=== PATIENT | female | born 1960 | race Caucasian/White ===

== ENCOUNTER 2020-02-07 15:25 | Outpatient (REF) | payer OTHER, SELFPAY | END 2020-02-07 15:26 | disposition home or self-care (01) | LOC: HO.LAB 15:25 | PROVIDERS: PCP Nurse Practitioner Family; Visit Provider Internal Medicine | DX: Z13.89 Encounter for screening for other disorder (principal) ==

== ENCOUNTER 2020-02-08 06:39 | Outpatient (REF) | payer OTHER, SELFPAY ==
[2020-02-08 07:27] LABS: COVID-19 Test Negative (Negative)
== END 2020-02-08 06:40 | disposition home or self-care (01) ==
LOC: HO.LAB 06:39
PROVIDERS: Visit Provider Internal Medicine
DX: Z20.828 Contact with and (suspected) exposure to other viral communicable diseases (principal)
CPT/HCPCS: 87635

== ENCOUNTER → 2020-04-17 13:43 | Outpatient (BNVA) | payer OTHER, SELFPAY | PROVIDERS: PCP Nurse Practitioner Family; Visit Provider Physician Assistant | DX: M79.18 Myalgia, other site (principal); E66.01 Morbid (severe) obesity due to excess calories; Z68.42 Body mass index [BMI] 45.0-49.9, adult | CPT/HCPCS: 99203 ==

== ENCOUNTER → 2020-04-22 15:06 | Outpatient (BNVA) | payer OTHER, SELFPAY | PROVIDERS: PCP Nurse Practitioner Family; Visit Provider Physician Assistant | DX: M54.6 Pain in thoracic spine (principal) | CPT/HCPCS: 99213 ==

== ENCOUNTER 2020-04-24 15:48 | Outpatient (RCR) | payer OTHER, SELFPAY ==
--- NOTE | 2020-04-24 17:15 | MHC.PT.EP ---
[employer] [employer] [place] Office [place] Office [place] [facility] [address] Bandar Smith [address] [phone] F: [phone] F: [phone] F: [phone] F: [phone] Physical Therapy Plan of Care Date of Evaluation: 04/24/20 Date of Surgery: N/A Diagnosis: thoracic spasm Assessment: pt presents to physical therapy with pain, decreased range of motion, decreased strength, impaired functional mobility, impaired postural awareness, and gait deviations. pt is a good candidate for skilled PT due to age, potential remediation of impairments, typical disease/condition progression and prognosis, comorbidities, and motivation. pt would benefit from tailored strengthening and stretching exercise program, functional training, gait training, postural re-training, neuromuscular re-education, modalities as needed for pain, equipment safety demonstration. Frequency and Duration: The patient will be seen 2x/wk for 4 wks Short Term Goals: pt will be I w/ HEP to promote self-management of condition. pt will improve B lower trap strength by 1 MMT grade to promote shoulder strength and stability w/ work-related tasks. 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 pt will report <1/10 R scapular pain w/ supine and B S/L to normalize sleeping patterns. Treatment Plan: Modalities to reduce pain, spasms and effusion. Manual therapy to restore motion and function. Therapeutic exercise to improve strength and flexibility. Neuromuscular re-education for posture and balance. Therapeutic activities to return to functional activities of daily living. Electronically signed by: Shira Bergeron PT, DPT Please sign and return to therapist. Thank you for your referral.
--- NOTE | 2020-05-08 15:41 | MHC.PT.DC ---
[facility] [place] [facility] [place] [facility] [address] [phone] F: [phone] F: [phone] F: [phone] F: [phone] Physical Therapy Discharge Report Diagnosis: thoracic spasm Date of Surgery: N/A Date of Evaluation: 04/24/20 Date of Discharge: 05/08/20 Treatments to Date: 1 Cancellations to Date: 0 No Shows to Date: 3 Discharge Status: Patient Elected to Stop Physician Discontinued Tx Discharge Summary: The patient no showed three consecutive appointments after her initial evaluation. She was called and reported upon a work-up with pain management she has a muscle tear. She was told to discontinue physical therapy at this time. If she would like to return to physical therapy a new script would need to be obtained. She is discharged from this physical therapy plan of care at this time. Electronically signed by: Shira Bergeron PT, DPT Please sign and return to therapist. Thank you for your referral.
== END 2020-05-08 15:42 | disposition other institution (70) ==
LOC: HO.PT 15:48
PROVIDERS: PCP Nurse Practitioner Family; Visit Provider Physician Assistant
DX: M62.830 Muscle spasm of back (principal)
CPT/HCPCS: 97110; 97161

== ENCOUNTER → 2020-05-01 08:03 | Outpatient (BNVA) | payer OTHER, SELFPAY | PROVIDERS: PCP Nurse Practitioner Family; Visit Provider Anesthesiology | DX: M79.18 Myalgia, other site (principal); E66.01 Morbid (severe) obesity due to excess calories | CPT/HCPCS: 99202 ==

== ENCOUNTER 2020-09-12 16:17 | Emergency (ER) | payer OTHER, SELFPAY ==
--- NOTE | ~2020-09-12 | XR_ITS ---
EXAMINATION: XR CHEST CLINICAL INFORMATION: Shortness of breath, wheezing COMPARISON: Chest radiographs 05/31/2019, 04/04/2018 TECHNIQUE: Portable upright AP view of the chest was obtained. FINDINGS: There is no hyperinflation, pneumothorax, or effusion. No lobar or segmental airspace consolidation. There is some coarsening of the bronchiolar markings infrahilar regions with questionable groundglass opacities. Tapering at the cardiac apex is consistent with areolar tissue. The hilar and mediastinal contours and bony structures are unremarkable. XR/XR chest 1V IMPRESSION: 1. Coarsening bronchiolar markings infrahilar regions with questionable groundglass opacities. 2. No lobar or segmental airspace consolidation, pneumothorax, or effusion.
[2020-09-12 16:23] VITALS: BP 125/95; PULSE 118; RESP 20; TEMP 35.8; O2SAT 94; BMI 42.3
--- NOTE | 2020-09-12 16:37 | ECG_ITS ---
Test Reason : SOB Blood Pressure : / mmHG Vent. Rate : 116 BPM Atrial Rate : 116 BPM P-R Int : 148 ms QRS Dur : 126 ms QT Int : 360 ms P-R-T Axes : 039 -30 088 degrees QTc Int : 500 ms Sinus tachycardia Left axis deviation Left bundle branch block Abnormal ECG When compared with ECG of 31-MAY-2019 16:49, No significant change was found Referred By: Rula Adams Electronically Signed By:ALEX URIAS
[2020-09-12] MEDS: Albuterol Sulfate (0.083%) 2.5 MG/3 ML VIAL.NEB 10 MG INHALE (16:49)
[2020-09-12 16:50] VITALS: PULSE 118; O2SAT 96
--- NOTE | 2020-09-12 17:01 | ED_ITS ---
HPI - SOB/Dyspnea General Chief Complaint: Dyspnea <BRENDA Leone - Last Filed: 09/12/20 18:03> Stated Complaint: SOB <BRENDA Leone - Last Filed: 09/12/20 18:03> Time Seen by Provider: 09/12/20 16:36 <BRENDA Leone Last Filed: 09/12/20 18:03> Source: patient <BRENDA Leone - Last Filed: 09/12/20 18:03> Mode of arrival: ambulatory <BRENDA Leone - Last Filed: 09/12/20 18:03> Limitations: no limitations <BRENDA Leone Last Filed: 09/12/20 18:03> History of Present Illness HPI Narrative: 60 y/o female with history of COPD, asthmatic bronchitis, obesity, former smoker (quit 20 years ago) who presents to the ER from home with SOB and wheezing for the last 4 days. She has been using all of her inhalers as directed and has been using her nebulizer machine at home. She reports relief with her nebulizer, however she had to use it 3 times today. She was SOB with little exertion today and had a hard time catching her breath. She has a cough that keeps her up at night. It is productive of white thick phlegm that is her baseline phlegm. She has seasonal allergies and pollen is known to trigger her respiratory issues. She has no chest pain. No fever, chills, N/V/D, abdominal pain, leg pain. She is fully vaccinated against COVID. <BRENDA Leone - Last Filed: 09/12/20 18:03> MD elicited complaint: shortness of breath <BRENDA Leone - Last Filed: 09/12/20 18:03> Pertinent past history: COPD and asthma <BRENDA Leone Last Filed: 09/12/20 18:03> Onset (ago): day(s) (4) <BRENDA Leone - Last Filed: 09/12/20 18:03> Context: occurred during exertion and allergen exposure <BRENDA Leone Last Filed: 09/12/20 18:03> Timing: constant <BRENDA Leone - Last Filed: 09/12/20 18:03> Severity: moderate <BRENDA Leone Last Filed: 09/12/20 18:03> Exacerbating factors: exertion <BRENDA Leone Last Filed: 09/12/20 18:03> Relieving factors: rest and bronchodilators <BRENDA Leone Last Filed: 09/12/20 18:03> Known history of: COPD and asthma <BRENDA Leone Last Filed: 09/12/20 18:03> Associated symptoms: cough, wheezing and sputum production <BRENDA Leone Last Filed: 09/12/20 18:03> Treatment prior to arrival: bronchodilator <BRENDA Leone Last Filed: 09/12/20 18:03> Related Data Home oxygen amount: none <BRENDA Leone Last Filed: 09/12/20 18:03> Home Medications: Home Medications Medication Instructions Recorded Confirmed albuterol sulfate mg INHALATION 05/01/20 albuterol sulfate 90 mcg/actuation 2 puff INHALATION Q6H PRN 05/01/20 aerosol inhaler hydrochlorothiazide 25 mg tablet 25 mg PO DAILY 05/01/20 lisinopril 40 mg tablet 40 mg PO DAILY 05/01/20 Previous Rx's Medication Instructions Recorded albuterol sulfate 1 inh INHALATION QID PRN #6.7 g 09/12/20 ipratropium-albuterol 3 ml INHALATION Q20M PRN #15 ml 09/12/20 prednisone 10 mg PO PER PKG DIR #48 ea 09/12/20 <BRENDA Leone Last Filed: 09/12/20 18:03> Allergies/Adverse Reactions: Allergies Allergy/AdvReac Type Severity Reaction Status Date / Time Sulfa (Sulfonamide Allergy Unknown cough Verified 05/01/20 08:20 Antibiotics) sulfamethoxazole Allergy Unknown COUGH Verified 05/01/20 08:20 [From BACTRIM] trimethoprim [From BACTRIM] Allergy Unknown COUGH Verified 05/01/20 08:20 seasonal Allergy Unknown unknown Uncoded 05/01/20 08:20 <BRENDA Leone Last Filed: 09/12/20 18:03> Review of Systems Review of Systems: Constitutional: No Fever, No Chills ENT/Mouth: No sore throat, No Rhinorrhea, No Swallowing Difficulty Eyes: No Eye Pain, No Swelling, No Redness Cardiovascular: No Chest Pain, + SOB, No Orthopnea, No Edema Respiratory: + Cough, + Sputum, + Wheezing, + dyspnea Gastrointestinal: No Nausea, No Vomiting, No Diarrhea, No abdominal Pain Musculoskeletal: No joint pain, No Myalgias Skin: No Skin Lesions, No rash Neuro: No Weakness, No Numbness, No Dizziness, No Headache Psych: No Anxiety/Panic, No Depression Heme/Lymph: No Bruising, No Lymphadenopathy <BRENDA Leone - Last Filed: 09/12/20 18:03> [facility] Past Medical History Attestation statement: The following information was validated with the patient. <BRENDA Leone - Last Filed: 09/12/20 18:03> Medical History: Medical History COPD (chronic obstructive pulmonary disease) Hypertension Morbid obesity Myofascial pain syndrome <BRENDA Leone - Last Filed: 09/12/20 18:03> Family History Family History: Family History (Updated 03/01/20 @ 09:30 by TACHO Mcneil) Father HTN (hypertension) Mother HTN (hypertension) <BRENDA Leone - Last Filed: 09/12/20 18:03> Social History Social History: Social History Patient Tobacco Use Status: Never used Tobacco Smoked in Last 30 Days: No Use of substances other than those prescribed or required for medical reasons: No Advance Directives: No Advance Directives Information Provided: Yes Patient : No <BREDNA Leone - Last Filed: 09/12/20 18:03> Physical Exam Vital Signs: Vital Signs: Last Vital Signs Temp 98.1 F 09/12/20 20:44 Pulse 125 H 09/12/20 20:44 Resp 18 09/12/20 20:44 BP 117/91 H 09/12/20 20:44 Pulse Ox 94 09/12/20 20:44 Body Mass Index 42.3 Appearance: Alert. Oriented X3. Mild respiratory distress with audible wheezing. Eyes: Pupils equal, round and reactive to light. ENT: Pharynx normal. Neck: Normal inspection. Neck supple. CVS: Tachycardic, regular rhythm. Pulses normal. Respiratory: Mild respiratory distress. Breath sounds with inspiratory and expiratory wheezes throughout, prolonged expiratory phase. Skin: Skin warm and dry. Normal skin color. Normal skin turgor. No rashes. Extremities: No lower extremity edema. Negative Willie's sign. Neuro: Oriented X 3. No motor deficit. No sensory deficit. <BRENDA Leone - Last Filed: 09/12/20 18:03> Vital Signs: Last Vital Signs Temp 98.1 F 09/12/20 20:44 Pulse 125 H 09/12/20 20:44 Resp 18 09/12/20 20:44 BP 117/91 H 09/12/20 20:44 Pulse Ox 94 09/12/20 20:44 Body Mass Index 42.3 <Phu Booth MD - Last Filed: 09/12/20 20:52> Course Course Course Narrative: 60 y/o female with history of COPD, asthma, obesity and seasonal allergies presenting with SOB and wheezing x4 days, likely due to allergen exposure. SpO2 94% on arrival with mild respiratory distress and tachycardia. She did her nebulizer 3x today which can account for her tachycardia. She is able to speak in 5-6 word sentences but has audible wheezing. CXR, EKG and lab workup ordered as well as IV steroids and hour long nebulizer treatment. Dispo pending results and improvement. <BRENDA Leone - Last Filed: 09/12/20 18:03> Reevaluation(s) Reevaluation #1: DDIMER added. CXR with possible ground glass opacities. COVID swab added. Signed out to Dr. Booth who will assume care. <BRENDA Leone - Last Filed: 09/12/20 18:03> 60-year-old female history of COPD/asthma came in for shortness of breath and wheezing. Labs/x-ray/patient presentation and history of more consistent with COPD exacerbation patient received Solu-Medrol/magnesium/bronchodilator in the emergency department now she feels better. Will discharge patient home with a course of prednisone and continue with bronchodilator patient was instructed to return if any worsening of her symptoms. <Phu Booth MD - Last Filed: 09/12/20 20:52> Time: 20:51 <Phu Booth MD - Last Filed: 09/12/20 20:52> MDM - SOB/Dyspnea Lab Data Attestation: I reviewed the patient's lab results. <BRENDA Leone - Last Filed: 09/12/20 18:03> Result diagrams: : 09/12/20 17:01 09/12/20 17:01 <BRENDA Leone - Last Filed: 09/12/20 18:03> Labs: Lab Results 09/12/20 09/12/20 09/12/20 Range/Units 17:01 17:01 17:01 WBC 11.5 H (4.8-10.8) X10*3/uL RBC 5.52 H (4.20-5.50) X10*6/uL Hgb 15.2 (12.0-16.0) g/dl Hct 45.0 (37-47) % MCV 81.5 (80-98) fL MCH 27.5 (27.0-33.0) pg MCHC 33.8 (31.0-35.0) g/dl RDW 12.4 (11.0-16.0) % Plt Count 437 H (160-400) X10*3/uL MPV 9.6 (9.4-12.3) fL Immature Gran % (Auto) 0.3 (0.0-0.4) % Neut % (Auto) 60.2 (45-73) % Lymph % (Auto) 20.9 (20-40) % [place] % (Auto) 10.6 (2-11) % Eos % (Auto) 7.1 H (0-4) % Baso % (Auto) 0.9 (0-2) % Lymph # (Auto) 2.4 (1.2-4.9) X10*3/uL [place] # (Auto) 1.2 (0.1-1.2) X10*3/uL Eos # (Auto) 0.8 H (0.0-0.4) X10*3/uL Baso # (Auto) 0.1 (0.0-0.2) X10*3/uL Abs Immat Gran (auto) 0.04 H (0.00-0.03) X10*3/uL Absolute Neuts (auto) 6.9 (2.0-8.3) X10*3/uL Absolute Nucleated RBC 0.000 (0.0-0.012) X10*3/uL Nucleated RBC % (auto) 0.0 (0.0-0.2) /100WBC D-Dimer Cancelled Hold Blue Top SEE NOTE Sodium 139 (135-145) mmol/L Potassium 4.6 (3.3-5.1) mmol/L Chloride 104 (96-108) mmol/L Carbon Dioxide 22 (22-29) mmol/L Anion Gap 18 (12-20) BUN 27 H (9-16) mg/dL Creatinine 1.01 (0.5-1.4) mg/dL Estim Creat Clear Calc 80.3 Estimated GFR 56 Random Glucose 101 (60-115) mg/dL Lactic Acid (0.5-2.0) mmol/L Calcium 9.6 (8.4-10.2) mg/dL Magnesium 1.8 (1.6-2.6) mg/dL Troponin I High Sens (<3.5-17.0) ng/L B-Natriuretic Peptide (<100) pg/mL Procalcitonin ng/mL Coronavirus (PCR) (Negative) Influenza Type A (PCR) (Negative) Influenza Type B (PCR) (Negative) RSV RNA Qual (PCR) (Negative) 09/12/20 09/12/20 09/12/20 Range/Units 17:01 17:01 17:01 WBC (4.8-10.8) X10*3/uL RBC (4.20-5.50) X10*6/uL Hgb (12.0-16.0) g/dl Hct (37-47) % MCV (80-98) fL MCH (27.0-33.0) pg MCHC (31.0-35.0) g/dl RDW (11.0-16.0) % Plt Count (160-400) X10*3/uL MPV (9.4-12.3) fL Immature Gran % (Auto) (0.0-0.4) % Neut % (Auto) (45-73) % Lymph % (Auto) (20-40) % [place] % (Auto) (2-11) % Eos % (Auto) (0-4) % Baso % (Auto) (0-2) % Lymph # (Auto) (1.2-4.9) X10*3/uL [place] # (Auto) (0.1-1.2) X10*3/uL Eos # (Auto) (0.0-0.4) X10*3/uL Baso # (Auto) (0.0-0.2) X10*3/uL Abs Immat Gran (auto) (0.00-0.03) X10*3/uL Absolute Neuts (auto) (2.0-8.3) X10*3/uL Absolute Nucleated RBC (0.0-0.012) X10*3/uL Nucleated RBC % (auto) (0.0-0.2) /100WBC D-Dimer Hold Blue Top Sodium (135-145) mmol/L Potassium (3.3-5.1) mmol/L Chloride (96-108) mmol/L Carbon Dioxide (22-29) mmol/L Anion Gap (12-20) BUN (9-16) mg/dL Creatinine (0.5-1.4) mg/dL Estim Creat Clear Calc Estimated GFR Random Glucose (60-115) mg/dL Lactic Acid (0.5-2.0) mmol/L Calcium (8.4-10.2) mg/dL Magnesium (1.6-2.6) mg/dL Troponin I High Sens 17.8 H* (<3.5-17.0) ng/L B-Natriuretic Peptide < 10 (<100) pg/mL Procalcitonin 0.03 ng/mL Coronavirus (PCR) (Negative) Influenza Type A (PCR) (Negative) Influenza Type B (PCR) (Negative) RSV RNA Qual (PCR) (Negative) 09/12/20 09/12/20 09/12/20 Range/Units 17:01 17:16 18:55 WBC (4.8-10.8) X10*3/uL RBC (4.20-5.50) X10*6/uL Hgb (12.0-16.0) g/dl Hct (37-47) % MCV (80-98) fL MCH (27.0-33.0) pg MCHC (31.0-35.0) g/dl RDW (11.0-16.0) % Plt Count (160-400) X10*3/uL MPV (9.4-12.3) fL Immature Gran % (Auto) (0.0-0.4) % Neut % (Auto) (45-73) % Lymph % (Auto) (20-40) % [place] % (Auto) (2-11) % Eos % (Auto) (0-4) % Baso % (Auto) (0-2) % Lymph # (Auto) (1.2-4.9) X10*3/uL [place] # (Auto) (0.1-1.2) X10*3/uL Eos # (Auto) (0.0-0.4) X10*3/uL Baso # (Auto) (0.0-0.2) X10*3/uL Abs Immat Gran (auto) (0.00-0.03) X10*3/uL Absolute Neuts (auto) (2.0-8.3) X10*3/uL Absolute Nucleated RBC (0.0-0.012) X10*3/uL Nucleated RBC % (auto) (0.0-0.2) /100WBC D-Dimer < 200 Hold Blue Top Sodium (135-145) mmol/L Potassium (3.3-5.1) mmol/L Chloride (96-108) mmol/L Carbon Dioxide (22-29) mmol/L Anion Gap (12-20) BUN (9-16) mg/dL Creatinine (0.5-1.4) mg/dL Estim Creat Clear Calc Estimated GFR Random Glucose (60-115) mg/dL Lactic Acid 1.2 (0.5-2.0) mmol/L Calcium (8.4-10.2) mg/dL Magnesium (1.6-2.6) mg/dL Troponin I High Sens (<3.5-17.0) ng/L B-Natriuretic Peptide (<100) pg/mL Procalcitonin ng/mL Coronavirus (PCR) NEGATIVE (Negative) Influenza Type A (PCR) NEGATIVE (Negative) Influenza Type B (PCR) NEGATIVE (Negative) RSV RNA Qual (PCR) NEGATIVE (Negative) 09/12/20 Range/Units 19:41 WBC (4.8-10.8) X10*3/uL RBC (4.20-5.50) X10*6/uL Hgb (12.0-16.0) g/dl Hct (37-47) % MCV (80-98) fL MCH (27.0-33.0) pg MCHC (31.0-35.0) g/dl RDW (11.0-16.0) % Plt Count (160-400) X10*3/uL MPV (9.4-12.3) fL Immature Gran % (Auto) (0.0-0.4) % Neut % (Auto) (45-73) % Lymph % (Auto) (20-40) % [place] % (Auto) (2-11) % Eos % (Auto) (0-4) % Baso % (Auto) (0-2) % Lymph # (Auto) (1.2-4.9) X10*3/uL [place] # (Auto) (0.1-1.2) X10*3/uL Eos # (Auto) (0.0-0.4) X10*3/uL Baso # (Auto) (0.0-0.2) X10*3/uL Abs Immat Gran (auto) (0.00-0.03) X10*3/uL Absolute Neuts (auto) (2.0-8.3) X10*3/uL Absolute Nucleated RBC (0.0-0.012) X10*3/uL Nucleated RBC % (auto) (0.0-0.2) /100WBC D-Dimer Hold Blue Top Sodium (135-145) mmol/L Potassium (3.3-5.1) mmol/L Chloride (96-108) mmol/L Carbon Dioxide (22-29) mmol/L Anion Gap (12-20) BUN (9-16) mg/dL Creatinine (0.5-1.4) mg/dL Estim Creat Clear Calc Estimated GFR Random Glucose (60-115) mg/dL Lactic Acid (0.5-2.0) mmol/L Calcium (8.4-10.2) mg/dL Magnesium (1.6-2.6) mg/dL Troponin I High Sens 18.3 H* (<3.5-17.0) ng/L B-Natriuretic Peptide (<100) pg/mL Procalcitonin ng/mL Coronavirus (PCR) (Negative) Influenza Type A (PCR) (Negative) Influenza Type B (PCR) (Negative) RSV RNA Qual (PCR) (Negative) <BRENDA Leone - Last Filed: 09/12/20 18:03> Lab Results 09/12/20 09/12/20 09/12/20 Range/Units 17:01 17:01 17:01 WBC 11.5 H (4.8-10.8) X10*3/uL RBC 5.52 H (4.20-5.50) X10*6/uL Hgb 15.2 (12.0-16.0) g/dl Hct 45.0 (37-47) % MCV 81.5 (80-98) fL MCH 27.5 (27.0-33.0) pg MCHC 33.8 (31.0-35.0) g/dl RDW 12.4 (11.0-16.0) % Plt Count 437 H (160-400) X10*3/uL MPV 9.6 (9.4-12.3) fL Immature Gran % (Auto) 0.3 (0.0-0.4) % Neut % (Auto) 60.2 (45-73) % Lymph % (Auto) 20.9 (20-40) % [place] % (Auto) 10.6 (2-11) % Eos % (Auto) 7.1 H (0-4) % Baso % (Auto) 0.9 (0-2) % Lymph # (Auto) 2.4 (1.2-4.9) X10*3/uL [place] # (Auto) 1.2 (0.1-1.2) X10*3/uL Eos # (Auto) 0.8 H (0.0-0.4) X10*3/uL Baso # (Auto) 0.1 (0.0-0.2) X10*3/uL Abs Immat Gran (auto) 0.04 H (0.00-0.03) X10*3/uL Absolute Neuts (auto) 6.9 (2.0-8.3) X10*3/uL Absolute Nucleated RBC 0.000 (0.0-0.012) X10*3/uL Nucleated RBC % (auto) 0.0 (0.0-0.2) /100WBC D-Dimer Cancelled Hold Blue Top SEE NOTE Sodium 139 (135-145) mmol/L Potassium 4.6 (3.3-5.1) mmol/L Chloride 104 (96-108) mmol/L Carbon Dioxide 22 (22-29) mmol/L Anion Gap 18 (12-20) BUN 27 H (9-16) mg/dL Creatinine 1.01 (0.5-1.4) mg/dL Estim Creat Clear Calc 80.3 Estimated GFR 56 Random Glucose 101 (60-115) mg/dL Lactic Acid (0.5-2.0) mmol/L Calcium 9.6 (8.4-10.2) mg/dL Magnesium 1.8 (1.6-2.6) mg/dL Troponin I High Sens (<3.5-17.0) ng/L B-Natriuretic Peptide (<100) pg/mL Procalcitonin ng/mL Coronavirus (PCR) (Negative) Influenza Type A (PCR) (Negative) Influenza Type B (PCR) (Negative) RSV RNA Qual (PCR) (Negative) 09/12/20 09/12/20 09/12/20 Range/Units 17:01 17:01 17:01 WBC (4.8-10.8) X10*3/uL RBC (4.20-5.50) X10*6/uL Hgb (12.0-16.0) g/dl Hct (37-47) % MCV (80-98) fL MCH (27.0-33.0) pg MCHC (31.0-35.0) g/dl RDW (11.0-16.0) % Plt Count (160-400) X10*3/uL MPV (9.4-12.3) fL Immature Gran % (Auto) (0.0-0.4) % Neut % (Auto) (45-73) % Lymph % (Auto) (20-40) % [place] % (Auto) (2-11) % Eos % (Auto) (0-4) % Baso % (Auto) (0-2) % Lymph # (Auto) (1.2-4.9) X10*3/uL [place] # (Auto) (0.1-1.2) X10*3/uL Eos # (Auto) (0.0-0.4) X10*3/uL Baso # (Auto) (0.0-0.2) X10*3/uL Abs Immat Gran (auto) (0.00-0.03) X10*3/uL Absolute Neuts (auto) (2.0-8.3) X10*3/uL Absolute Nucleated RBC (0.0-0.012) X10*3/uL Nucleated RBC % (auto) (0.0-0.2) /100WBC D-Dimer Hold Blue Top Sodium (135-145) mmol/L Potassium (3.3-5.1) mmol/L Chloride (96-108) mmol/L Carbon Dioxide (22-29) mmol/L Anion Gap (12-20) BUN (9-16) mg/dL Creatinine (0.5-1.4) mg/dL Estim Creat Clear Calc Estimated GFR Random Glucose (60-115) mg/dL Lactic Acid (0.5-2.0) mmol/L Calcium (8.4-10.2) mg/dL Magnesium (1.6-2.6) mg/dL Troponin I High Sens 17.8 H* (<3.5-17.0) ng/L B-Natriuretic Peptide < 10 (<100) pg/mL Procalcitonin 0.03 ng/mL Coronavirus (PCR) (Negative) Influenza Type A (PCR) (Negative) Influenza Type B (PCR) (Negative) RSV RNA Qual (PCR) (Negative) 09/12/20 09/12/20 09/12/20 Range/Units 17:01 17:16 18:55 WBC (4.8-10.8) X10*3/uL RBC (4.20-5.50) X10*6/uL Hgb (12.0-16.0) g/dl Hct (37-47) % MCV (80-98) fL MCH (27.0-33.0) pg MCHC (31.0-35.0) g/dl RDW (11.0-16.0) % Plt Count (160-400) X10*3/uL MPV (9.4-12.3) fL Immature Gran % (Auto) (0.0-0.4) % Neut % (Auto) (45-73) % Lymph % (Auto) (20-40) % [place] % (Auto) (2-11) % Eos % (Auto) (0-4) % Baso % (Auto) (0-2) % Lymph # (Auto) (1.2-4.9) X10*3/uL [place] # (Auto) (0.1-1.2) X10*3/uL Eos # (Auto) (0.0-0.4) X10*3/uL Baso # (Auto) (0.0-0.2) X10*3/uL Abs Immat Gran (auto) (0.00-0.03) X10*3/uL Absolute Neuts (auto) (2.0-8.3) X10*3/uL Absolute Nucleated RBC (0.0-0.012) X10*3/uL Nucleated RBC % (auto) (0.0-0.2) /100WBC D-Dimer < 200 Hold Blue Top Sodium (135-145) mmol/L Potassium (3.3-5.1) mmol/L Chloride (96-108) mmol/L Carbon Dioxide (22-29) mmol/L Anion Gap (12-20) BUN (9-16) mg/dL Creatinine (0.5-1.4) mg/dL Estim Creat Clear Calc Estimated GFR Random Glucose (60-115) mg/dL Lactic Acid 1.2 (0.5-2.0) mmol/L Calcium (8.4-10.2) mg/dL Magnesium (1.6-2.6) mg/dL Troponin I High Sens (<3.5-17.0) ng/L B-Natriuretic Peptide (<100) pg/mL Procalcitonin ng/mL Coronavirus (PCR) NEGATIVE (Negative) Influenza Type A (PCR) NEGATIVE (Negative) Influenza Type B (PCR) NEGATIVE (Negative) RSV RNA Qual (PCR) NEGATIVE (Negative) 09/12/20 Range/Units 19:41 WBC (4.8-10.8) X10*3/uL RBC (4.20-5.50) X10*6/uL Hgb (12.0-16.0) g/dl Hct (37-47) % MCV (80-98) fL MCH (27.0-33.0) pg MCHC (31.0-35.0) g/dl RDW (11.0-16.0) % Plt Count (160-400) X10*3/uL MPV (9.4-12.3) fL Immature Gran % (Auto) (0.0-0.4) % Neut % (Auto) (45-73) % Lymph % (Auto) (20-40) % [place] % (Auto) (2-11) % Eos % (Auto) (0-4) % Baso % (Auto) (0-2) % Lymph # (Auto) (1.2-4.9) X10*3/uL [place] # (Auto) (0.1-1.2) X10*3/uL Eos # (Auto) (0.0-0.4) X10*3/uL Baso # (Auto) (0.0-0.2) X10*3/uL Abs Immat Gran (auto) (0.00-0.03) X10*3/uL Absolute Neuts (auto) (2.0-8.3) X10*3/uL Absolute Nucleated RBC (0.0-0.012) X10*3/uL Nucleated RBC % (auto) (0.0-0.2) /100WBC D-Dimer Hold Blue Top Sodium (135-145) mmol/L Potassium (3.3-5.1) mmol/L Chloride (96-108) mmol/L Carbon Dioxide (22-29) mmol/L Anion Gap (12-20) BUN (9-16) mg/dL Creatinine (0.5-1.4) mg/dL Estim Creat Clear Calc Estimated GFR Random Glucose (60-115) mg/dL Lactic Acid (0.5-2.0) mmol/L Calcium (8.4-10.2) mg/dL Magnesium (1.6-2.6) mg/dL Troponin I High Sens 18.3 H* (<3.5-17.0) ng/L B-Natriuretic Peptide (<100) pg/mL Procalcitonin ng/mL Coronavirus (PCR) (Negative) Influenza Type A (PCR) (Negative) Influenza Type B (PCR) (Negative) RSV RNA Qual (PCR) (Negative) <Phu Booth MD - Last Filed: 09/12/20 20:52> ECG Data Attestation: I personally reviewed and interpreted this ECG as follows: <BRENDA Leone - Last Filed: 09/12/20 18:03> ECG interpretation date: 09/12/20 <BRENDA Leone - Last Filed: 09/12/20 18:03> ECG interpretation time: 18:02 <BRENDA Leone - Last Filed: 09/12/20 18:03> Prior ECG tracings: not available for review <BRENDA Leone - Last Filed: 09/12/20 18:03> Interpretation: sinus tachycardia, HR 116, normal NE intercal, LBBB, no ST segment elevations <BRENDA Leone - Last Filed: 09/12/20 18:03> Discharge Plan Discharge Clinical Impression: Acute exacerbation of chronic obstructive airways disease <BRENDA Leone - Last Filed: 09/12/20 18:03> Patient Disposition: Home, Self-Care <BRENDA Leone - Last Filed: 09/12/20 18:03> Instructions: COPD (Chronic Obstructive Pulmonary Disease) (ED) <BRENDA Leone - Last Filed: 09/12/20 18:03> Prescriptions: New prednisone 10 mg tablets,dose pack 10 mg PO PER PKG DIR Qty: 48 RF: 0 albuterol sulfate 90 mcg/actuation HFA aerosol inhaler 1 inh inhalation QID PRN (Reason: shortness of breath or wheezing) Qty: 6.7 RF: 0 ipratropium-albuterol 0.5 mg-3 mg(2.5 mg base)/3 mL solution for nebulization 3 ml inhalation Q20M PRN (Reason: shortness of breath or wheezing) Qty: 15 RF: 0 <BRENDA Leone Last Filed: 09/12/20 18:03> Referrals: Jeff Sanders MD [Physician] - 2 days <BRENDA Leone - Last Filed: 09/12/20 18:03> Stand Alone Forms: Work/School Release <BRENDA Leone - Last Filed: 09/12/20 18:03>
[2020-09-12] MEDS: Benzonatate 100 MG CAPSULE PO (17:04)
[2020-09-12] MEDS: methylPREDNISolone Sod Succ 125 MG/2 ML VIAL IVPUSH (17:04)
[2020-09-12 17:06] LABS: MANUAL DIFF FLAG NO
[2020-09-12 17:12] LABS: Basophils Absolute Auto 0.1 X10*3/uL (0.0-0.2); Basophils Percent Auto 0.9 % (0-2); Eosinophils Absolute Auto 0.8 X10*3/uL (0.0-0.4); Eosinophils Percent Auto 7.1 % (0-4); Hemoglobin 15.2 g/dl (12.0-16.0); Imm Gran Abs Auto 0.04 X10*3/uL (0.00-0.03); Imm Gran Pct Auto 0.3 % (0.0-0.4); Lymphocytes Absolute Auto 2.4 X10*3/uL (1.2-4.9); Lymphocytes Percent Auto 20.9 % (20-40); Mean Corpuscular HGB Conc 33.8 g/dl (31.0-35.0); Mean Corpuscular Hemoglobin 27.5 pg (27.0-33.0); Mean Corpuscular Volume 81.5 fL (80-98); Mean Platelet Volume 9.6 fL (9.4-12.3); Monocytes Absolute Auto 1.2 X10*3/uL (0.1-1.2); Monocytes Percent Auto 10.6 % (2-11); Neutrophils Absolute Auto 6.9 X10*3/uL (2.0-8.3); Neutrophils Percent Auto 60.2 % (45-73); Platelet Count 437 X10*3/uL (160-400); Red Blood Count 5.52 X10*6/uL (4.20-5.50); Red Cell Distribution Width 12.4 % (11.0-16.0); White Blood Count 11.5 X10*3/uL (4.8-10.8)
[2020-09-12 17:29] LABS: Lactic Acid 1.2 mmol/L (0.5-2.0)
[2020-09-12 17:37] LABS: Anion Gap 18 (12-20); Blood Urea Nitrogen 27 mg/dL (9-16); Calcium 9.6 mg/dL (8.4-10.2); Carbon Dioxide 22 mmol/L (22-29); Chloride 104 mmol/L (96-108); Creatinine Clr Calc Pharmacy 80.3; Estimated Glomerular Filt Rate 56; Glucose Random 101 mg/dL (60-115); Magnesium 1.8 mg/dL (1.6-2.6); Potassium 4.6 mmol/L (3.3-5.1); Sodium 139 mmol/L (135-145)
[2020-09-12 17:39] LABS: B Type Natriuretic Peptide < 10 pg/mL (<100)
[2020-09-12 17:54] LABS: Procalcitonin 0.03 ng/mL
[2020-09-12 18:13] LABS: Troponin-I High Sensitivity 17.8 ng/L (<3.5-17.0)
[2020-09-12 18:17] LABS: Influenza A PCR NEGATIVE (Negative); Influenza B PCR NEGATIVE (Negative); Resp Syncy Virus RNA Qual PCR NEGATIVE (Negative); SARS COV2 PCR INHOUSE NEGATIVE (Negative)
[2020-09-12 19:10] LABS: D Dimer < 200 NG/ML
[2020-09-12 20:22] LABS: Troponin-I High Sensitivity 18.3 ng/L (<3.5-17.0)
[2020-09-12 20:44] VITALS: BP 117/91; PULSE 125; RESP 18; TEMP 36.7; O2SAT 94
== END 2020-09-12 20:55 | disposition home or self-care (01) ==
PROVIDERS: Physician Assistant; Emergency Provider Emergency Medicine; PCP Nurse Practitioner Family
DX: J44.1 Chronic obstructive pulmonary disease with (acute) exacerbation (principal); R06.00 Dyspnea, unspecified; Z87.891 Personal history of nicotine dependence; Z20.822 Contact with and (suspected) exposure to COVID-19; Z79.899 Other long term (current) drug therapy
CPT/HCPCS: 0241U; 36415; 71045; 80048; 83605; 83735; 83880; 84145; 84484; 85025; 85379; 87040; 93005; 94640; 94644; 99284; J2930

== ENCOUNTER → 2020-09-27 13:57 | Outpatient (BNVA) | payer OTHER, SELFPAY | PROVIDERS: PCP Nurse Practitioner Family; Visit Provider Internal Medicine Pulmonary Disease ==

== ENCOUNTER 2020-10-10 08:29 | Outpatient (REF) | payer OTHER, SELFPAY ==
[2020-10-10 08:55] LABS: MANUAL DIFF FLAG NO
[2020-10-10 09:00] LABS: Basophils Percent Auto 0.5 % (0-2); Eosinophils Absolute Auto 0.1 X10*3/uL (0.0-0.4); Eosinophils Percent Auto 1.6 % (0-4); Hematocrit 43.6 % (37-47); Hemoglobin 14.3 g/dl (12.0-16.0); Imm Gran Abs Auto 0.02 X10*3/uL (0.00-0.03); Imm Gran Pct Auto 0.2 % (0.0-0.4); Lymphocytes Absolute Auto 2.2 X10*3/uL (1.2-4.9); Lymphocytes Percent Auto 24.8 % (20-40); Mean Corpuscular HGB Conc 32.8 g/dl (31.0-35.0); Mean Corpuscular Hemoglobin 27.2 pg (27.0-33.0); Mean Corpuscular Volume 82.9 fL (80-98); Mean Platelet Volume 9.7 fL (9.4-12.3); Monocytes Absolute Auto 0.9 X10*3/uL (0.1-1.2); Monocytes Percent Auto 10.4 % (2-11); Neutrophils Absolute Auto 5.5 X10*3/uL (2.0-8.3); Neutrophils Percent Auto 62.5 % (45-73); Platelet Count 372 X10*3/uL (160-400); Red Blood Count 5.26 X10*6/uL (4.20-5.50); Red Cell Distribution Width 12.3 % (11.0-16.0); White Blood Count 8.8 X10*3/uL (4.8-10.8)
--- NOTE | 2020-10-10 17:04 | PFT_ITS ---
FLOWS: FEV1 of 73% of predicted at 2.08 L. FVC 80% of predicted at 2.94 L. FEV1 to FVC ratio of 0.71. Positive bronchodilator response. LUNG VOLUMES: Total lung capacity 84% of predicted at 4.67 L. Residual volume 92% of predicted at 1.98 L. Slow vital capacity 80% of predicted at 2.70 L. Expiratory reserve volume 24% of predicted at 0.25 L. Diffusion capacity is mildly decreased, diffusion capacity adjust to normal after correction for alveolar ventilation. IMPRESSION: Moderate obstructive ventilatory defect with positive bronchodilator response. Decreased expiratory reserve volume suggests extrathoracic restriction likely secondary to abdominal obesity. Nitin Louis MD AP/MODL / [id number]
== END 2020-10-10 08:30 | disposition home or self-care (01) ==
LOC: HO.RESP 08:29
PROVIDERS: PCP Nurse Practitioner Family; Visit Provider Internal Medicine Pulmonary Disease
DX: J45.909 Unspecified asthma, uncomplicated (principal); R68.89 Other general symptoms and signs
CPT/HCPCS: 36415; 82785; 85025; 86003; 94060; 94727; 94729

== ENCOUNTER → 2020-10-15 14:22 | Outpatient (BNVA) | payer OTHER, SELFPAY | PROVIDERS: PCP Nurse Practitioner Family; Visit Provider Internal Medicine Pulmonary Disease ==

== ENCOUNTER → 2020-11-12 09:23 | Outpatient (BNVA) | payer OTHER, SELFPAY | PROVIDERS: PCP Nurse Practitioner Family; Visit Provider Internal Medicine Pulmonary Disease ==

== ENCOUNTER → 2021-02-21 14:02 | Outpatient (BNVA) | payer OTHER, SELFPAY | PROVIDERS: PCP Nurse Practitioner Family; Visit Provider Internal Medicine Pulmonary Disease ==

== ENCOUNTER 2021-03-10 09:54 | Outpatient (REF) | payer OTHER, SELFPAY | END 2021-03-10 09:55 | disposition home or self-care (01) | LOC: HO.MDS 09:54 | PROVIDERS: Visit Provider Internal Medicine Pulmonary Disease | DX: J45.50 Severe persistent asthma, uncomplicated (principal) | CPT/HCPCS: 96372; J2357 ==

== ENCOUNTER → 2021-03-11 13:15 | Outpatient (BNVA) | payer OTHER, SELFPAY | PROVIDERS: PCP Nurse Practitioner Family; Visit Provider Internal Medicine Pulmonary Disease ==

== ENCOUNTER 2021-04-07 08:54 | Outpatient (REF) | payer OTHER, SELFPAY | END 2021-04-07 08:55 | disposition home or self-care (01) | LOC: HO.MDS 08:54 | PROVIDERS: PCP Nurse Practitioner Family; Visit Provider Internal Medicine Pulmonary Disease | DX: J45.50 Severe persistent asthma, uncomplicated (principal) | CPT/HCPCS: 96372; J2357 ==

== ENCOUNTER 2021-05-08 09:24 | Outpatient (REF) | payer OTHER, SELFPAY | END 2021-05-08 09:25 | disposition home or self-care (01) | LOC: HO.MDS 09:24 | PROVIDERS: PCP Nurse Practitioner Family; Visit Provider Internal Medicine Pulmonary Disease | DX: J45.50 Severe persistent asthma, uncomplicated (principal) | CPT/HCPCS: 96372; J2357 ==

== ENCOUNTER → 2021-05-22 09:42 | Outpatient (BNVA) | payer OTHER, SELFPAY | PROVIDERS: PCP Nurse Practitioner Family; Visit Provider Internal Medicine Pulmonary Disease ==

== ENCOUNTER 2021-06-05 09:13 | Outpatient (REF) | payer OTHER, SELFPAY | END 2021-06-05 09:14 | disposition home or self-care (01) | LOC: HO.MDS 09:13 | PROVIDERS: PCP Nurse Practitioner Family; Visit Provider Internal Medicine Pulmonary Disease | DX: J45.50 Severe persistent asthma, uncomplicated (principal) | CPT/HCPCS: 96372; J2357 ==

== ENCOUNTER 2021-06-09 08:23 | Outpatient (REF) | payer OTHER, SELFPAY ==
--- NOTE | ~2021-06-09 | MM_ITS ---
EXAMINATION: MM SCREENING DIGITAL BREAST TOMOSYNTHESIS, BILATERAL CLINICAL INFORMATION: Screening. Asymptomatic. The lifetime risk of breast cancer based on the Tyrer-Cuzick Model is 7%. COMPARISON: Mammography: 06/18/2016 TECHNIQUE: Digital breast tomosynthesis is performed in both the craniocaudal and mediolateral oblique views along with computer-aided detection (CAD). Synthesized 2D images are generated from the tomosynthesis. FINDINGS: There are scattered areas of fibroglandular density (ACR BI-RADS breast composition Category b). There are no significant masses, abnormal calcifications, or other abnormalities. Parenchymal pattern is similar to prior exam. There are no significant changes. MM/MM tomosynthesis screening BI IMPRESSION: There are no significant changes from prior study. ASSESSMENT: BI-RADS 1: Negative RECOMMENDATION: Routine annual mammography screening. This patient's information was entered into a reminder system with a target due date for their next mammogram.
== END 2021-06-09 08:24 | disposition home or self-care (01) ==
LOC: HO.MAMMO 08:23
PROVIDERS: PCP Nurse Practitioner Family; Visit Provider Nurse Practitioner Family
DX: Z12.31 Encounter for screening mammogram for malignant neoplasm of breast (principal)
CPT/HCPCS: 77063; 77067

== ENCOUNTER → 2021-06-24 09:19 | Outpatient (REF) | payer OTHER, SELFPAY ==
--- NOTE | 2021-06-24 09:25 | CA_ITS ---
Transthoracic Echocardiogram Patient (Last, First, Middle): Yanna Holt, Gender: Female Date of : 1960 Age: 60 Procedure Date: 06/24/2021 Procedure Type: Transthoracic Echocardiogram Location: OP Height: 172.72 cm Weight: 137.44 kg BSA: 2.44 m2 Heart Rate: bpm BP: 120 / 70 mmHg Network Security Architect: MARYANNE Referring MD: Kam Jensen [facility] Fire Inspector: Andrzej Restrepo MD Symptoms: I44.7 - Left bundle-branch block, unspecified Study Quality: Technically Difficult ECG Rhythm: Sinus Conclusions: - 1. Technically limited study, patient refused Definity contrast 2. LV systolic function difficult to assess, but grade I diastolic dysfunction is noted. 3. Limited visualization of cardiac valves with normal but limited Dopplers Findings Left Ventricle The left ventricle was not well visualized. Spectral Doppler is indicative of an impaired relaxation filling pattern. E/E prime ratio is <8, consistent with normal filling pressures. Evidence suggests grade I (mild) diastolic dysfunction. On some views LV systolic function appears to be normal, however LV systolic function is difficult to assess on this study Right Ventricle Normal right ventricular cavity size and systolic function. Atria The left atrium was not well visualized. Interatrial shunt cannot be excluded. The right atrium is normal in size. Aortic Valve The aortic valve was not well visualized. There is no aortic valve stenosis. Mitral Valve The mitral valve was not well visualized. Pulmonic Valve The pulmonic valve was not well visualized. Tricuspid Valve The tricuspid valve was not well visualized. Tricuspid regurgitation envelope is inadequate for calculation of right ventricular systolic pressure. Great Vessels The aorta was not well visualized. The pulmonary artery was not well visualized. Venous The inferior vena cava was not well visualized. Pericardium/Pleural The pericardium was not well visualized. Prior Study Comparison Comparison is not possible given the technically limited study Measurements 2D Linear Measurements IVSd: 1.34 0.6-0.9/0.6-1.0 cm LVIDd: 3.95 3.9-5.3/4.2-5.9 cm LVIDd Index: 1.62 2.4-3.2/2.2-3.1 cm/m2 LVIDs: 2.64 2.0-3.6 cm LVPWd: 1.32 0.7-1.1 cm LA Diam: 4.00 2.7-3.8/3.0-4.0 cm LAIDs Index: 1.64 1.5-2.3 cm/m2 LV Mass: 236.26 67-162/88-224 g LV Mass Index: 96.83 43-95/49-115 g/m2 LVOT Diam: 2.10 3.0+(-)1.3 cm Mitral Valve MV Pk E: 0.59 MV PK A: 1.12 MV Decel Time: 162.00 E/A: 0.50 E'Lateral: 11.40 E'Medial: 6.64 E/E' Med: 8.90 E/E' Lat: 5.20 PHT: 47.00 MVA PHT: 4.68 Decel [place]: 3.65 Aortic Valve AoV Pk Chip: 1.54 AoV Mn Chip: 1.08 AoV VTI: 0.26 AoV Pk Grad: 9.00 Aov Mn Grad: 5.00 JOYA Cont.VTI: 2.65 LVOT LVOT Pk Chip: 0.95 LVOT Mn Chip: 0.74 LVOT VTI: 0.20 LVOT Pk Grad: 4.00 LVOT Mn Grad: 2.00 LVOT Diam: 2.10 LVOT Area: 3.46 Diastolic Function MV Pk E: 0.59 MV Pk A: 1.12 E/A: 0.50 E'Medial: 6.64 E/E' Med: 8.90 E' Laterial: 11.40 E/E' Lat: 5.20 Right Ventricle TAPSE (mm): 22.30 TVS' Chip: 12.20 Tricuspid Valve TR Pk Chip: 1.09 TR Pk Grad: 5.00 Great Vessels Aorta Sinus of Valsalva: 3.17 2.0-3.5 cm Ao Asc: 3.40 2.1-3.4 cm Ao Arch: 3.20 Updated in Other Vendor System with Status of Final Andrzej Restrepo MD electronically signed on 06/24/2021 9:07:12 PM with status of Final
== END ==
LOC: HO.CARD 09:19
PROVIDERS: PCP Nurse Practitioner Family; Visit Provider Nurse Practitioner Family
DX: I44.7 Left bundle-branch block, unspecified (principal)
CPT/HCPCS: 93306

== ENCOUNTER 2021-07-07 09:21 | Outpatient (REF) | payer OTHER, SELFPAY | END 2021-07-07 09:22 | disposition home or self-care (01) | LOC: HO.MDS 09:21 | PROVIDERS: PCP Nurse Practitioner Family; Visit Provider Internal Medicine Pulmonary Disease | DX: J45.50 Severe persistent asthma, uncomplicated (principal) | CPT/HCPCS: 96372; J2357 ==

== ENCOUNTER → 2021-07-24 14:55 | Outpatient (REF) | payer OTHER, SELFPAY | LOC: HO.CARD 14:55 | PROVIDERS: PCP Nurse Practitioner Family; Referring Provider Nurse Practitioner Family; Visit Provider Internal Medicine Cardiovascular Disease | DX: Z13.89 Encounter for screening for other disorder (principal) ==

== ENCOUNTER → 2021-07-29 13:44 | Outpatient (REF) | payer OTHER, SELFPAY ==
--- NOTE | 2021-07-29 13:49 | HM_ITS ---
REQUESTING PHYSICIAN: Dr. Mercedes. REASON FOR TEST: Paroxysmal atrial fibrillation. Hookup date was 07/29/2021 to 08/28/2021. INTERPRETATION: Patient was hooked up to cardiac event monitor and monitored. Patient's baseline rhythm overall is sinus rhythm with heart rate varying from 93 beats per minute to 141 beats per minute with frequent sinus tachycardia. There was 1 episode of atrial fibrillation noted on 08/09/2021 that lasted for few hours. Excess duration not noted. Total burden of atrial fibrillation not noted. However, during atrial fibrillation, patient's rapid ventricular response up to 222 beats per minute. There were no reported symptoms at that time. Isolated PVCs and couplets noted. The patient did not report any symptoms during atrial fibrillation. CONCLUSION: Holter report is remarkable. 1. Episode of atrial fibrillation with rapid ventricular response of 222 beats per minute. 2. Predominant otherwise normal sinus rhythm. 3. Total burden of atrial fibrillation not measured. 4. The patient did not report any symptoms during episode of atrial fibrillation. MD ANKIT Larkin/MODL / [id number]
== END ==
LOC: HO.CARD 13:44
PROVIDERS: Visit Provider Internal Medicine Cardiovascular Disease
DX: I48.0 Paroxysmal atrial fibrillation (principal)
CPT/HCPCS: 93270

== ENCOUNTER 2021-08-05 09:27 | Outpatient (REF) | payer OTHER, SELFPAY | END 2021-08-05 09:28 | disposition home or self-care (01) | LOC: HO.MDS 09:27 | PROVIDERS: PCP Nurse Practitioner Family; Visit Provider Internal Medicine Pulmonary Disease | DX: J45.50 Severe persistent asthma, uncomplicated (principal) | CPT/HCPCS: 96372; J2357 ==

== ENCOUNTER 2021-08-09 19:40 | Emergency (ER) | payer OTHER, SELFPAY ==
--- NOTE | ~2021-08-09 | XR_ITS ---
EXAMINATION: XR CHEST CLINICAL INFORMATION: Chest pain. COMPARISON: Chest radiograph dated from 09/12/2020. TECHNIQUE: AP view of the chest was obtained. FINDINGS: Focal airspace opacities in the retrocardiac region/left lower lobe. Otherwise, clear lungs. No significant pleural effusion. No pneumothorax. Stable appearance of the cardiomediastinal silhouette. No acute osseous abnormalities. XR/XR chest 1V IMPRESSION: Focal airspace opacities in the retrocardiac region/left lower lobe concerning for an infiltrate. Correlate clinically for pneumonia and recommend a follow-up examination after treatment to ensure resolution.
--- NOTE | 2021-08-09 19:44 | ECG_ITS ---
Test Reason : ABN HEARTRATE Blood Pressure : / mmHG Vent. Rate : 101 BPM Atrial Rate : 101 BPM P-R Int : 150 ms QRS Dur : 122 ms QT Int : 360 ms P-R-T Axes : 038 -13 077 degrees QTc Int : 466 ms Sinus tachycardia Left bundle branch block Abnormal ECG When compared with ECG of 12-SEP-2020 17:12, No significant change was found Referred By: Generic ED Physician Electronically Signed By:DEJA SOL MD
[2021-08-09 19:49] VITALS: BP 148/92; PULSE 114; RESP 20; TEMP 36.9; O2SAT 97; BMI 45.4
[2021-08-09 20:11] LABS: MANUAL DIFF FLAG NO
[2021-08-09 20:19] LABS: Basophils Absolute Auto 0.1 X10*3/uL (0.0-0.2); Basophils Percent Auto 0.6 % (0-2); Eosinophils Absolute Auto 0.5 X10*3/uL (0.0-0.4); Eosinophils Percent Auto 4.4 % (0-4); Hematocrit 45.7 % (37.0-47.0); Imm Gran Abs Auto 0.04 X10*3/uL (0.00-0.03); Imm Gran Pct Auto 0.4 % (0.0-0.4); Lymphocytes Absolute Auto 2.4 X10*3/uL (1.2-4.9); Lymphocytes Percent Auto 21.1 % (20-40); Mean Corpuscular HGB Conc 32.8 g/dl (31.0-35.0); Mean Corpuscular Volume 82.2 fL (80.0-98.0); Mean Platelet Volume 9.5 fL (9.4-12.3); Monocytes Percent Auto 8.8 % (2-11); Neutrophils Absolute Auto 7.3 x10*3/uL (2.0-8.3); Neutrophils Percent Auto 64.7 % (45-73); Platelet Count 403 X10*3/uL (160-400); Red Blood Count 5.56 X10*6/uL (4.20-5.50); Red Cell Distribution Width 12.7 % (11.0-16.0); White Blood Count 11.3 X10*3/uL (4.8-10.8)
[2021-08-09 20:35] LABS: Anion Gap 13 (12-20); Blood Urea Nitrogen 23 mg/dL (9-16); Calcium 9.5 mg/dL (8.4-10.2); Carbon Dioxide 28 mmol/L (22-29); Chloride 106 mmol/L (96-108); Creatinine Clr Calc Pharmacy 79.6; Estimated Glomerular Filt Rate 53; Glucose Random 117 mg/dL (60-115); Potassium 4.7 mmol/L (3.3-5.1); Sodium 142 mmol/L (135-145)
[2021-08-09 20:42] LABS: Troponin-I High Sensitivity 17.9 ng/L (<3.5-17.0)
[2021-08-09 21:08] VITALS: BP 120/70; PULSE 94; RESP 18; TEMP 36.4; O2SAT 96
--- NOTE | 2021-08-09 21:35 | ED.GENADULT ---
HPI - General Adult General Chief complaint: General Medical Stated complaint: Afib Time Seen by Provider: 08/09/21 20:27 History of Present Illness HPI narrative: Patient is a 61-year-old female with a history of atrial fibrillation. History of hypertension history of left bundle-branch block. History of COPD. Patient presented today with having routine follow-up for a Holter monitor. Patient pressed her Holter monitor daily to check on the monitor. Apparently she pressed the wrong button and send and alert. Was noted at the time patient was in atrial fibrillation. Patient denies have any chest pain shortness of breath dizziness nausea vomiting at the time. She had no symptoms. Told by her director of patient safety come to the ED for further evaluation. Patient from home. There has been no change in her medication. She is not on any anticoagulation. Her director of patient safety is aware there was some financial issues Related Data Home Medications Medication Instructions Recorded Confirmed albuterol sulfate mg INHALATION 05/01/20 04/14/21 albuterol sulfate 90 mcg/actuation 2 puff INHALATION Q6H PRN 05/01/20 04/14/21 aerosol inhaler fluticasone 100 mcg-salmeterol 50 1 inh INHALATION DAILY ea 07/24/21 mcg/dose blistr powdr for inhalation (Advair Diskus) Previous Rx's Medication Instructions Recorded ipratropium 0.5 mg-albuterol 3 mg 3 ml INHALATION Q20M PRN #15 ml 09/12/20 (2.5 mg base)/3 mL nebulization soln hydrochlorothiazide 25 mg tablet 25 mg PO DAILY 90 Days #90 tab 05/20/21 lisinopril 40 mg tablet 40 mg PO DAILY 90 Days #90 tab 05/20/21 omalizumab 150 mg subcutaneous 300 mg SUBCUT Q4W 28 Days #1 ea 07/08/21 solution (Xolair) Allergies Allergy/AdvReac Type Severity Reaction Status Date / Time Sulfa (Sulfonamide Allergy Unknown cough Verified 07/24/21 15:09 Antibiotics) sulfamethoxazole Allergy Unknown COUGH Verified 07/24/21 15:09 [From BACTRIM] trimethoprim [From BACTRIM] Allergy Unknown COUGH Verified 07/24/21 15:09 seasonal Allergy Unknown unknown Uncoded 07/24/21 15:09 Review of Systems Review of Systems: No fever no chills no chest pain or shortness breath no dizziness no nausea no vomiting no symptom Yes all other systems are reviewed and are negative [facility] Past Medical History Attestation statement: The following information was validated with the patient. Medical History Colon cancer screening declined COPD (chronic obstructive pulmonary disease) Hypertension Morbid obesity Myofascial pain syndrome Surgical History No pertinent past surgical history Family History Family History Father HTN (hypertension) Mother HTN (hypertension) Social History Social History Housing: House Patient Tobacco Use Status: Former Tobacco user Years Smoked: quit 24 years ago e-Cigarette/Vaping Use: Never Used Second Hand Smoke Exposure: No Advance Directives: No Advance Directives Information Provided: Yes service: No Current occupational status: employed Current occupation: [employer] Current occupational exposures/hazards: No Physical Exam ED Vital Signs: Vital Signs - 24 hr 08/09/21 19:49 08/09/21 21:08 Temperature 98.5 F 97.5 F Pulse Rate 114 H 94 Respiratory Rate 20 18 Blood Pressure 148/92 H 120/70 Pulse Oximetry 97 96 BMI result Body Mass Index 45.4 Appearance: Alert. Oriented X3. No acute distress. Eyes: Pupils equal, round and reactive to light. ENT: Pharynx normal. Neck: Normal inspection. Neck supple. No lymph nodes noted. No crepitus CVS: Normal heart rate and rhythm. Pulses normal. Normal S1 and S2 Respiratory: No respiratory distress. Breath sounds normal. No Wheezing. No rales Abdomen: Soft and nontender. No rigidity. No distention. good BS x4 Skin: Skin warm and dry. Normal skin color. Normal skin turgor. Extremities: No lower extremity edema. Neurovascular intact to all extremities. No Lacerations. No Rash Neuro: Oriented X 3. No motor deficit. No sensory deficit. Moving all extermities. No slurred speech Medical Decision Making MDM Narrative Medical decision making narrative: Patient's EKG showed a left bundle-branch pattern sinus heart rate was 90. EKG was unchanged from previous patient is asymptomatic. Will discuss with Cardiology about follow-up on an outpatient basis. Patient's Luther Vasc 2 score is 2. She is 61 years old he does have a history of hypertension. Currently is in stable condition. Patient's case discussed with Dr. Gage. Will discharge patient home. Patient offered anticoagulation did not want at this time. In stable condition. Lab Data Result diagrams: 08/09/21 20:07 08/09/21 20:07 Labs: Lab Results 08/09/21 08/09/21 08/09/21 Range/Units 20:07 20:07 20:07 WBC 11.3 H (4.8-10.8) X10*3/uL RBC 5.56 H (4.20-5.50) X10*6/uL Hgb 15.0 (12.0-16.0) g/dl Hct 45.7 (37.0-47.0) % MCV 82.2 (80.0-98.0) fL MCH 27.0 (27.0-33.0) pg MCHC 32.8 (31.0-35.0) g/dl RDW 12.7 (11.0-16.0) % Plt Count 403 H (160-400) X10*3/uL MPV 9.5 (9.4-12.3) fL Immature Gran % (Auto) 0.4 (0.0-0.4) % Neut % (Auto) 64.7 (45-73) % Lymph % (Auto) 21.1 (20-40) % [place] % (Auto) 8.8 (2-11) % Eos % (Auto) 4.4 H (0-4) % Baso % (Auto) 0.6 (0-2) % Lymph # (Auto) 2.4 (1.2-4.9) X10*3/uL [place] # (Auto) 1.0 (0.1-1.2) X10*3/uL Eos # (Auto) 0.5 H (0.0-0.4) X10*3/uL Baso # (Auto) 0.1 (0.0-0.2) X10*3/uL Abs Immat Gran (auto) 0.04 H (0.00-0.03) X10*3/uL Absolute Neuts (auto) 7.3 (2.0-8.3) x10*3/uL Absolute Nucleated RBC 0.000 (0.0-0.012) X10*3/uL Nucleated RBC % (auto) 0.0 (0.0-0.2) /100WBC Sodium 142 (135-145) mmol/L Potassium 4.7 (3.3-5.1) mmol/L Chloride 106 (96-108) mmol/L Carbon Dioxide 28 (22-29) mmol/L Anion Gap 13 (12-20) BUN 23 H (9-16) mg/dL Creatinine 1.05 (0.5-1.4) mg/dL Estim Creat Clear Calc 79.6 Estimated GFR 53 Random Glucose 117 H (60-115) mg/dL Calcium 9.5 (8.4-10.2) mg/dL Troponin I High Sens 17.9 H (<3.5-17.0) ng/L Discharge Plan Discharge Clinical Impression: PAF (paroxysmal atrial fibrillation) Patient Disposition: Home, Self-Care Instructions: A-fib (Atrial Fibrillation) (ED) Prescriptions: No Action lisinopril 40 mg tablet 40 mg PO DAILY 90 Days Qty: 90 0RF hydrochlorothiazide 25 mg tablet 25 mg PO DAILY 90 Days Qty: 90 0RF Xolair 150 mg recon soln 300 mg subcut Q4W 28 Days Qty: 1 12RF Rx Instructions: requires multiple injection sites; do not exceed 150 mg per injection site ipratropium-albuterol 0.5 mg-3 mg(2.5 mg base)/3 mL solution for nebulization 3 ml inhalation Q20M PRN (Reason: shortness of breath or wheezing) Qty: 15 0RF Rx Instructions: for 3 doses albuterol sulfate 2.5 mg /3 mL (0.083 %) solution for nebulization inhalation 0RF albuterol sulfate 90 mcg/actuation HFA aerosol inhaler 2 puff inhalation Q6H PRN (Reason: dyspnea) 0RF fluticasone propion-salmeterol [Advair Diskus] 100-50 mcg/dose blister with device 1 inh inhalation DAILY 0RF Referrals: Andrea Mercedes MD [Physician] -
--- NOTE | 2021-08-09 21:58 | ED.GENADULT ---
HPI - General Adult General Chief complaint: General Medical Stated complaint: Afib Time Seen by Provider: 08/09/21 20:27 Related Data Home Medications Medication Instructions Recorded Confirmed albuterol sulfate mg INHALATION 05/01/20 04/14/21 albuterol sulfate 90 mcg/actuation 2 puff INHALATION Q6H PRN 05/01/20 04/14/21 aerosol inhaler fluticasone 100 mcg-salmeterol 50 1 inh INHALATION DAILY ea 07/24/21 mcg/dose blistr powdr for inhalation (Advair Diskus) Previous Rx's Medication Instructions Recorded ipratropium 0.5 mg-albuterol 3 mg 3 ml INHALATION Q20M PRN #15 ml 09/12/20 (2.5 mg base)/3 mL nebulization soln hydrochlorothiazide 25 mg tablet 25 mg PO DAILY 90 Days #90 tab 05/20/21 lisinopril 40 mg tablet 40 mg PO DAILY 90 Days #90 tab 05/20/21 omalizumab 150 mg subcutaneous 300 mg SUBCUT Q4W 28 Days #1 ea 07/08/21 solution (Xolair) apixaban 5 mg tablet (Eliquis) 5 mg PO BID 30 Days #60 tab 08/09/21 Allergies Allergy/AdvReac Type Severity Reaction Status Date / Time Sulfa (Sulfonamide Allergy Unknown cough Verified 07/24/21 15:09 Antibiotics) sulfamethoxazole Allergy Unknown COUGH Verified 07/24/21 15:09 [From BACTRIM] trimethoprim [From BACTRIM] Allergy Unknown COUGH Verified 07/24/21 15:09 seasonal Allergy Unknown unknown Uncoded 07/24/21 15:09 [facility] Past Medical History Medical History Colon cancer screening declined COPD (chronic obstructive pulmonary disease) Hypertension Morbid obesity Myofascial pain syndrome Surgical History No pertinent past surgical history Family History Family History Father HTN (hypertension) Mother HTN (hypertension) Social History Social History Housing: House Patient Tobacco Use Status: Former Tobacco user Years Smoked: quit 24 years ago e-Cigarette/Vaping Use: Never Used Second Hand Smoke Exposure: No Advance Directives: No Advance Directives Information Provided: Yes service: No Current occupational status: employed Current occupation: [employer] Current occupational exposures/hazards: No Physical Exam ED Vital Signs: Vital Signs - 24 hr 08/09/21 19:49 08/09/21 21:08 Temperature 98.5 F 97.5 F Pulse Rate 114 H 94 Respiratory Rate 20 18 Blood Pressure 148/92 H 120/70 Pulse Oximetry 97 96 BMI result Body Mass Index 45.4 Medical Decision Making MDM Narrative Medical decision making narrative: Patient's case discussed with cardiology okay with discharge. After long discussion with patient okay with anticoagulation. We will go ahead and start patient on Eliquis 5 mg twice a day. She is in stable condition. Lab Data Result diagrams: 08/09/21 20:07 08/09/21 20:07 Labs: Lab Results 08/09/21 08/09/21 08/09/21 Range/Units 20:07 20:07 20:07 WBC 11.3 H (4.8-10.8) X10*3/uL RBC 5.56 H (4.20-5.50) X10*6/uL Hgb 15.0 (12.0-16.0) g/dl Hct 45.7 (37.0-47.0) % MCV 82.2 (80.0-98.0) fL MCH 27.0 (27.0-33.0) pg MCHC 32.8 (31.0-35.0) g/dl RDW 12.7 (11.0-16.0) % Plt Count 403 H (160-400) X10*3/uL MPV 9.5 (9.4-12.3) fL Immature Gran % (Auto) 0.4 (0.0-0.4) % Neut % (Auto) 64.7 (45-73) % Lymph % (Auto) 21.1 (20-40) % [place] % (Auto) 8.8 (2-11) % Eos % (Auto) 4.4 H (0-4) % Baso % (Auto) 0.6 (0-2) % Lymph # (Auto) 2.4 (1.2-4.9) X10*3/uL [place] # (Auto) 1.0 (0.1-1.2) X10*3/uL Eos # (Auto) 0.5 H (0.0-0.4) X10*3/uL Baso # (Auto) 0.1 (0.0-0.2) X10*3/uL Abs Immat Gran (auto) 0.04 H (0.00-0.03) X10*3/uL Absolute Neuts (auto) 7.3 (2.0-8.3) x10*3/uL Absolute Nucleated RBC 0.000 (0.0-0.012) X10*3/uL Nucleated RBC % (auto) 0.0 (0.0-0.2) /100WBC Sodium 142 (135-145) mmol/L Potassium 4.7 (3.3-5.1) mmol/L Chloride 106 (96-108) mmol/L Carbon Dioxide 28 (22-29) mmol/L Anion Gap 13 (12-20) BUN 23 H (9-16) mg/dL Creatinine 1.05 (0.5-1.4) mg/dL Estim Creat Clear Calc 79.6 Estimated GFR 53 Random Glucose 117 H (60-115) mg/dL Calcium 9.5 (8.4-10.2) mg/dL Troponin I High Sens 17.9 H (<3.5-17.0) ng/L Discharge Plan Discharge Clinical Impression: PAF (paroxysmal atrial fibrillation) Patient Disposition: Home, Self-Care Instructions: A-fib (Atrial Fibrillation) (ED) Prescriptions: New Eliquis 5 mg tablet 5 mg PO BID 30 Days Qty: 60 0RF No Action lisinopril 40 mg tablet 40 mg PO DAILY 90 Days Qty: 90 0RF hydrochlorothiazide 25 mg tablet 25 mg PO DAILY 90 Days Qty: 90 0RF Xolair 150 mg recon soln 300 mg subcut Q4W 28 Days Qty: 1 12RF Rx Instructions: requires multiple injection sites; do not exceed 150 mg per injection site ipratropium-albuterol 0.5 mg-3 mg(2.5 mg base)/3 mL solution for nebulization 3 ml inhalation Q20M PRN (Reason: shortness of breath or wheezing) Qty: 15 0RF Rx Instructions: for 3 doses albuterol sulfate 2.5 mg /3 mL (0.083 %) solution for nebulization inhalation 0RF albuterol sulfate 90 mcg/actuation HFA aerosol inhaler 2 puff inhalation Q6H PRN (Reason: dyspnea) 0RF fluticasone propion-salmeterol [Advair Diskus] 100-50 mcg/dose blister with device 1 inh inhalation DAILY 0RF Referrals: Andrea Mercedes MD [Physician] -
== END 2021-08-09 22:19 | disposition home or self-care (01) ==
PROVIDERS: Emergency Provider Emergency Medicine Emergency Medical Services
DX: I48.0 Paroxysmal atrial fibrillation (principal); I10 Essential (primary) hypertension; Z79.899 Other long term (current) drug therapy; Z87.891 Personal history of nicotine dependence
CPT/HCPCS: 36415; 71045; 80048; 84484; 85025; 93005; 99284

== ENCOUNTER 2021-09-02 09:19 | Outpatient (REF) | payer OTHER, SELFPAY | END 2021-09-02 09:20 | disposition home or self-care (01) | LOC: HO.MDS 09:19 | PROVIDERS: PCP Nurse Practitioner Family; Visit Provider Internal Medicine Pulmonary Disease | DX: J45.50 Severe persistent asthma, uncomplicated (principal); M79.18 Myalgia, other site | CPT/HCPCS: 96372; J2357 ==

== ENCOUNTER → 2021-09-18 08:51 | Outpatient (BNVA) | payer OTHER, SELFPAY | PROVIDERS: PCP Nurse Practitioner Family; Visit Provider Internal Medicine Pulmonary Disease | DX: Z13.89 Encounter for screening for other disorder (principal) ==

== ENCOUNTER → 2021-09-25 11:11 | Outpatient (BNVA) | payer OTHER, SELFPAY | PROVIDERS: PCP Nurse Practitioner Family; Referring Provider Nurse Practitioner Family; Visit Provider Internal Medicine Cardiovascular Disease | DX: I48.0 Paroxysmal atrial fibrillation (principal); I44.7 Left bundle-branch block, unspecified; I10 Essential (primary) hypertension | CPT/HCPCS: 93005 ==

== ENCOUNTER 2021-10-03 08:29 | Outpatient (REF) | payer OTHER, SELFPAY | END 2021-10-03 08:30 | disposition home or self-care (01) | LOC: HO.MDS 08:29 | PROVIDERS: PCP Nurse Practitioner Family; Visit Provider Internal Medicine Pulmonary Disease | DX: J45.50 Severe persistent asthma, uncomplicated (principal) | CPT/HCPCS: 96372 ==

== ENCOUNTER 2021-10-30 08:34 | Outpatient (REF) | payer OTHER, SELFPAY | END 2021-10-30 08:35 | disposition home or self-care (01) | LOC: HO.MDS 08:34 | PROVIDERS: PCP Nurse Practitioner Family; Visit Provider Internal Medicine Pulmonary Disease | DX: J45.50 Severe persistent asthma, uncomplicated (principal) | CPT/HCPCS: 96372; J2357 ==

== ENCOUNTER 2021-11-27 09:10 | Outpatient (REF) | payer OTHER, SELFPAY | END 2021-11-27 09:11 | disposition home or self-care (01) | LOC: HO.MDS 09:10 | PROVIDERS: Visit Provider Internal Medicine Pulmonary Disease | DX: J45.50 Severe persistent asthma, uncomplicated (principal) | CPT/HCPCS: 96372; J2357 ==

== ENCOUNTER 2022-01-09 09:16 | Outpatient (REF) | payer OTHER, SELFPAY | END 2022-01-09 09:17 | disposition home or self-care (01) | LOC: HO.MDS 09:16 | PROVIDERS: Visit Provider Internal Medicine Pulmonary Disease | DX: J45.50 Severe persistent asthma, uncomplicated (principal) | CPT/HCPCS: 96372; J2357 ==

== ENCOUNTER 2022-02-09 08:51 | Outpatient (REF) | payer OTHER, SELFPAY | END 2022-02-09 08:52 | disposition home or self-care (01) | LOC: HO.MDS 08:51 | PROVIDERS: Visit Provider Internal Medicine Pulmonary Disease | DX: J45.50 Severe persistent asthma, uncomplicated (principal) | CPT/HCPCS: 96372; J2357 ==

== ENCOUNTER 2022-03-09 09:37 | Outpatient (REF) | payer OTHER, SELFPAY | END 2022-03-09 09:38 | disposition home or self-care (01) | LOC: HO.MDS 09:37 | PROVIDERS: Visit Provider Internal Medicine Pulmonary Disease | DX: J45.50 Severe persistent asthma, uncomplicated (principal) | CPT/HCPCS: 96372; J2357 ==

== ENCOUNTER 2022-04-14 08:53 | Outpatient (REF) | payer OTHER, SELFPAY | END 2022-04-14 08:54 | disposition home or self-care (01) | LOC: HO.MDS 08:53 | PROVIDERS: Visit Provider Internal Medicine Pulmonary Disease | DX: J45.50 Severe persistent asthma, uncomplicated (principal) | CPT/HCPCS: 96372 ==

== ENCOUNTER 2022-05-12 08:28 | Outpatient (REF) | payer OTHER, SELFPAY | END 2022-05-12 08:29 | disposition home or self-care (01) | LOC: HO.MDS 08:28 | PROVIDERS: Visit Provider Internal Medicine Pulmonary Disease | DX: J45.50 Severe persistent asthma, uncomplicated (principal); J40 Bronchitis, not specified as acute or chronic; R06.01 Orthopnea; R05.9 Cough, unspecified; Z87.891 Personal history of nicotine dependence; Z91.09 Other allergy status, other than to drugs and biological substances; Z79.899 Other long term (current) drug therapy | CPT/HCPCS: 96372; J2357 ==

== ENCOUNTER → 2022-06-02 08:53 | Outpatient (BNVA) | payer OTHER, SELFPAY | PROVIDERS: PCP Nurse Practitioner Family; Visit Provider Internal Medicine Pulmonary Disease | DX: Z13.89 Encounter for screening for other disorder (principal) ==

== ENCOUNTER 2022-06-10 08:49 | Outpatient (REF) | payer OTHER, SELFPAY | END 2022-06-10 08:50 | disposition home or self-care (01) | LOC: HO.MDS 08:49 | PROVIDERS: Visit Provider Internal Medicine Pulmonary Disease | DX: J45.50 Severe persistent asthma, uncomplicated (principal) | CPT/HCPCS: 96372; J2357 ==

== ENCOUNTER → 2022-06-25 09:24 | Outpatient (BNVA) | payer OTHER, SELFPAY | PROVIDERS: PCP Nurse Practitioner Family; Referring Provider Nurse Practitioner Family; Visit Provider Internal Medicine Cardiovascular Disease | DX: I48.0 Paroxysmal atrial fibrillation (principal); I44.7 Left bundle-branch block, unspecified; I10 Essential (primary) hypertension | CPT/HCPCS: 93005 ==

== ENCOUNTER 2022-07-03 08:34 | Outpatient (REF) | payer OTHER, SELFPAY ==
--- NOTE | ~2022-07-03 | MM_ITS ---
EXAMINATION: MM SCREENING DIGITAL BREAST TOMOSYNTHESIS, BILATERAL CLINICAL INFORMATION: Screening. Asymptomatic. The lifetime risk of breast cancer based on the Tyrer-Cuzick Model is 6%. COMPARISON: Mammography: 10/07/2021, 06/18/2016 TECHNIQUE: Digital breast tomosynthesis is performed in both the craniocaudal and mediolateral oblique views along with computer-aided detection (CAD). Synthesized 2D images are generated from the tomosynthesis. Additional bilateral MLO views are provided. FINDINGS: There are scattered areas of fibroglandular density (ACR BI-RADS breast composition Category b). There are no significant masses, abnormal calcifications, or other abnormalities. No architectural abnormality. Again, there is a small macrolobulated nodule anterior medial left breast. The axilla and skin contours are unremarkable. MM/MM tomosynthesis screening BI IMPRESSION: No mammographic evidence of malignancy. ASSESSMENT: BI-RADS 2: Benign RECOMMENDATION: Routine annual mammography screening. This patient's information was entered into a reminder system with a target due date for their next mammogram.
== END 2022-07-03 08:35 | disposition home or self-care (01) ==
LOC: HO.MAMMO 08:34
PROVIDERS: PCP Nurse Practitioner Family; Visit Provider Nurse Practitioner Family
DX: Z12.31 Encounter for screening mammogram for malignant neoplasm of breast (principal)
CPT/HCPCS: 77063; 77067

== ENCOUNTER 2022-07-08 08:51 | Outpatient (REF) | payer OTHER, SELFPAY | END 2022-07-08 08:52 | disposition home or self-care (01) | LOC: HO.MDS 08:51 | PROVIDERS: Visit Provider Internal Medicine Pulmonary Disease | DX: J45.50 Severe persistent asthma, uncomplicated (principal) | CPT/HCPCS: 96372; J2357 ==

== ENCOUNTER 2022-08-06 08:46 | Outpatient (REF) | payer OTHER, SELFPAY | END 2022-08-06 08:47 | disposition home or self-care (01) | LOC: HO.MDS 08:46 | PROVIDERS: Visit Provider Internal Medicine Pulmonary Disease | DX: J45.50 Severe persistent asthma, uncomplicated (principal) | CPT/HCPCS: 96372; J2357 ==

== ENCOUNTER 2022-09-03 08:59 | Outpatient (REF) | payer OTHER, SELFPAY | END 2022-09-03 09:00 | disposition home or self-care (01) | LOC: HO.MDS 08:59 | PROVIDERS: Visit Provider Internal Medicine Pulmonary Disease | DX: J45.50 Severe persistent asthma, uncomplicated (principal) | CPT/HCPCS: 96372; J2357 ==

== ENCOUNTER 2022-10-01 08:41 | Outpatient (REF) | payer OTHER, SELFPAY | END 2022-10-01 08:42 | disposition home or self-care (01) | LOC: HO.MDS 08:41 | PROVIDERS: Visit Provider Internal Medicine Pulmonary Disease | DX: J45.50 Severe persistent asthma, uncomplicated (principal) | CPT/HCPCS: 96372; J2357 ==

== ENCOUNTER → 2022-10-06 09:09 | Outpatient (BNVA) | payer OTHER, SELFPAY | PROVIDERS: PCP Nurse Practitioner Family; Visit Provider Internal Medicine Pulmonary Disease ==

== ENCOUNTER 2022-10-30 08:43 | Outpatient (REF) | payer OTHER, SELFPAY | END 2022-10-30 08:44 | disposition home or self-care (01) | LOC: HO.MDS 08:43 | PROVIDERS: Visit Provider Internal Medicine Pulmonary Disease | DX: J45.50 Severe persistent asthma, uncomplicated (principal) | CPT/HCPCS: 96372; J2357 ==

== ENCOUNTER 2022-12-03 08:45 | Outpatient (REF) | payer OTHER, SELFPAY | END 2022-12-03 08:46 | disposition home or self-care (01) | LOC: HO.MDS 08:45 | PROVIDERS: Visit Provider Internal Medicine Pulmonary Disease | DX: J45.50 Severe persistent asthma, uncomplicated (principal) | CPT/HCPCS: 96372; J2357 ==

== ENCOUNTER 2023-01-08 08:16 | Outpatient (REF) | payer OTHER, SELFPAY | END 2023-01-08 08:17 | disposition home or self-care (01) | LOC: HO.MDS 08:16 | PROVIDERS: Visit Provider Internal Medicine Pulmonary Disease | DX: J45.50 Severe persistent asthma, uncomplicated (principal) | CPT/HCPCS: 96372; J2357 ==

== ENCOUNTER 2023-01-22 08:54 | Outpatient (REF) | payer OTHER, SELFPAY ==
[2023-01-22 11:29] LABS: Appearance Urine Clear; Color Urine Yellow; Glucose Urine UA Negative (Negative); Leukocyte Esterase Urine Negative (Negative); Nitrite Urine Negative (Negative); UMIC TRIGGER UACC YES; Urine Blood Trace (Negative); Urine Ketones Negative (Negative); Urine Protein Negative (Neg-Trace)
[2023-01-22 11:35] LABS: Bacteria Urine None Seen (None Seen); Hyaline Casts Urine 0-2 /LPF (0-2); Squamous Epithelial Cell Urine 0-2 /HPF (0-2); WBC Urine 0-5 /HPF (0-5)
[2023-01-22 12:58] LABS: Alanine Aminotransferase 21 U/L (0-31); Albumin Level 4.1 g/dL (3.5-5.0); Alkaline Phosphatase 88 U/L (39-117); Anion Gap 16 (12-20); Aspartate Amino Transferase 19 U/L (5-31); Bilirubin Total 0.7 mg/dL (0.0-1.0); Blood Urea Nitrogen 22 mg/dL (9-16); Calcium 9.4 mg/dL (8.4-10.2); Carbon Dioxide 23 mmol/L (22-29); Chloride 104 mmol/L (96-108); Cholesterol 182 mg/dL (<200); Estimated Glomerular Filt Rate > 60; Glucose Fasting 100 mg/dL (60-99); HDL Cholesterol 48 mg/dL (>40); LDL Cholesterol Calculated 111 mg/dL (<100); Potassium 4.5 mmol/L (3.3-5.1); Sodium 138 mmol/L (135-145); Total Protein 7.2 g/dL (6.5-8.0); Triglycerides 117 mg/dL (<150)
[2023-01-22 13:19] LABS: TSH reflex Free T4 0.96 uIU/mL (0.32-4.0); Vitamin D 25-OH Total 16.4 ng/mL (>30)
== END 2023-01-22 08:55 | disposition home or self-care (01) ==
LOC: HO.HMGCLDS 08:54
PROVIDERS: PCP Nurse Practitioner Family; Visit Provider Nurse Practitioner Family
DX: E66.01 Morbid (severe) obesity due to excess calories (principal); E55.9 Vitamin D deficiency, unspecified; I10 Essential (primary) hypertension
CPT/HCPCS: 36415; 80053; 80061; 81001; 82306; 84443; 85025

== ENCOUNTER 2023-01-25 10:06 | Outpatient (AMB) | payer OTHER, SELFPAY ==
[2023-01-25 10:29] VITALS: BP 110/74; PULSE 95; O2SAT 99; BMI 49.7
--- NOTE | 2023-01-25 10:29 | MHC.PC.OV ---
Vital Signs 01/25/23 10:29 Height 5 ft 7 in Weight 317 lb 2 oz BMI 49.7 BP 110/74 Blood Pressure Location Rt radial Position Sitting Pulse 95 Pulse Source Pulse Oximeter Pulse Oximetry (%) 99 Oxygen Delivery Method Room Air Intake Visit Reasons: Annual PE Allergies apixaban [From Eliquis] Allergy (Severe, Verified 01/25/23 10:31) Facial Swelling and rash Sulfa (Sulfonamide Antibiotics) Allergy (Unknown, Verified 01/25/23 10:31) cough sulfamethoxazole [From BACTRIM] Allergy (Unknown, Verified 01/25/23 10:31) COUGH trimethoprim [From BACTRIM] Allergy (Unknown, Verified 01/25/23 10:31) COUGH seasonal Allergy (Unknown, Uncoded 01/25/23 10:31) unknown Tobacco use date assessed: 01/25/23 Dental Screening Dental Screen Date: 01/25/23 Did you have a dental visit in the last 12 months?: No Did you have a dental problem in the last 6 months where you did not have access to dental care?: No Was dental information given to patient?: No HPI Annual PE HPI Details Pt is here for a PE. Labs were already performed. Mammo is up to date. Pt has a cologuard kit at home and will complete this. Micro hem noted on last UA. Will repeat UA/culture and order cytology. Pt follows up with cardiology. Pt is also following up with ortho due to knee pain. [facility] Medical History Colon cancer screening declined COPD (chronic obstructive pulmonary disease) Hypertension Morbid obesity Myofascial pain syndrome Surgical History No pertinent past surgical history Family History Father HTN (hypertension) Mother HTN (hypertension) Brother Substance use disorder Social History Housing: House Alcohol intake: never Patient Tobacco Use Status: Former Tobacco user Quit Date: 1996 Years Smoked: 20 +/- e-Cigarette/Vaping Use: Never Used Second Hand Smoke Exposure: No service: No Current occupational status: employed Current occupation: [employer] Current occupational exposures/hazards: No Cognitive needs: No Hearing needs: No Vision needs: No Questionnaire Thrive Questionnaire Date Thrive assessed: 09/30/21 IRVIN-7 AMB Questionnaire IRVIN-7 Date IRVIN - 7 assessed: 09/30/21 Source: Developed by Drs. Flo Eddy, Phyllis Bonilla, Gregorio Tan and colleagues, with an educational yana from [employer]. Review of Systems Const Denies chills and Denies fever(s) Eyes Denies blurry vision ENT Denies vertigo, Denies dizziness and Denies sore throat Card Denies chest pain at rest, Denies chest pain with activity, Denies diaphoresis, Denies dyspnea and Denies dyspnea on exertion Resp Denies cough, Denies dyspnea, Denies dyspnea on exertion and Denies wheezing GI Denies abdominal pain, Denies melena, Denies hematochezia, Denies constipation, Denies diarrhea and Denies loose stools Denies hematuria Musc Denies numbness and Denies tingling Skin/Breast Denies lesions Neuro Denies vertigo, Denies dizziness, Denies numbness and Denies tingling Psych Denies anxiety, Denies depression, Denies homicidal ideation, Denies suicidal ideation and Denies other (substance abuse) Aller/Immun Denies wheezing Physical exam (Primary Care) Vital Signs: Last Vital Signs Pulse 95 01/25/23 10:29 BP 110/74 01/25/23 10:29 Pulse Ox 99 01/25/23 10:29 Oxygen Delivery Method Room Air 01/25/23 10:29 BMI result Body Mass Index 49.7 Tobacco/Smoking Status: Tobacco use Status Tobacco use date assessed 01/25/23 01/25/23 10:36 Patient Tobacco Use Status Former Tobacco user 01/25/23 10:36 e-Cigarette/Vaping Use Never Used 01/25/23 10:36 Thrive Assessment: Date of Thrive Assessment Date Thrive assessed 09/30/21 01/25/23 10:36 Const Other: using a crutch General: cooperative Nutritional Appearance: obese morbidly obese Orientation/consciousness: patient oriented x3 HENMT Head: Yes normal to inspection, Yes normocephalic and Yes atraumatic Ears: TM's normal bilaterally Eyes General: appearance normal, both eyes and all related structures Alignment and Position: alignment normal and position normal Neck Neck: Yes normal visual inspection and Yes no lymphadenopathy Thyroid: Thyroid normal Resp Effort & Inspection: normal respiratory effort Auscultation: clear to auscultation bilaterally Cardio Rate: regular rate Rhythm: regular rhythm Heart sounds: S1 normal heart sound present, S2 normal heart sound present and no murmurs GI Palpation (GI): Soft to palpation and nontender Auscultation: normal bowel sounds Skin Rashes: no rashes Neuro General: patient oriented x3, moves all extremities, no focal motor deficits and deep tendon reflexes 2+ bilaterally Romberg Test: Negative Psych Appearance: grossly normal Mental Status: mental status grossly normal Speech and movement: Normal speech and movement present Affect: normal affect Attitude: cooperative Thought process: Normal thought process present Thought content: Normal thought content present Insight: Good insight present (Psych) Judgement: Good judgement present (Psych) Assessment and Plan Assessment & Plan (1) Microscopic hematuria: Code(s): R31.29 - Other microscopic hematuria Plan: UA, culture, and cytology ordered (2) Physical exam: Code(s): Z00.00 - Encounter for general adult medical examination without abnormal findings Plan The patient agreed to the use of a medical device engineer for this encounter. Scribed for RONIT Chadwick by Maddie Morales medical device engineer, on 01/25/2023 at 10:45 EST Orders: Orders UA CC w/rflx Micro + Cult Today R31.29 - Other microscopic hematuria Urine Cytology Today R31.29 - Other microscopic hematuria Urine Culture Today R31.29 - Other microscopic hematuria Medications: New cholecalciferol (vitamin D3) 50 mcg PO DAILY 90 caps 2RF Coding Level of Care Code Est Pt Prev Care 40-64y(91685) Diagnoses Microscopic hematuria R31.29 Physical exam Z00.00
== END 2023-01-25 10:54 | disposition home or self-care (01) ==
PROVIDERS: Visit Provider Nurse Practitioner Family
DX: R31.29 Other microscopic hematuria (principal); Z00.00 Encounter for general adult medical examination without abnormal findings
CPT/HCPCS: 99396

== ENCOUNTER 2023-03-02 11:06 | Outpatient (REF) | payer OTHER, SELFPAY | END 2023-03-02 11:07 | disposition home or self-care (01) | LOC: HO.MDS 11:06 | PROVIDERS: Visit Provider Internal Medicine Pulmonary Disease | DX: J45.50 Severe persistent asthma, uncomplicated (principal) | CPT/HCPCS: 96372; J2357 ==

== ENCOUNTER 2023-03-31 09:57 | Outpatient (AMB) | payer OTHER, SELFPAY ==
[2023-03-31 10:01] VITALS: BP 118/77; PULSE 106; BMI 50.1
--- NOTE | 2023-03-31 10:01 | MHC.OFFVIS ---
Intake Vital Signs 03/31/23 10:01 Height 5 ft 7 in Weight 319 lb 10.724 oz BMI 50.1 BP 118/77 Blood Pressure Location Rt brachial Position Sitting Pulse 106 H Pulse Source Doppler Intake Visit Reasons: shortness of breath Allergies apixaban [From Eliquis] Allergy (Severe, Verified 03/31/23 10:03) Facial Swelling and rash Sulfa (Sulfonamide Antibiotics) Allergy (Unknown, Verified 03/31/23 10:03) cough sulfamethoxazole [From BACTRIM] Allergy (Unknown, Verified 03/31/23 10:03) COUGH trimethoprim [From BACTRIM] Allergy (Unknown, Verified 03/31/23 10:03) COUGH seasonal Allergy (Unknown, Uncoded 01/25/23 10:31) unknown HPI shortness of breath HPI Details 62-year-old lady former smoker, quit 30 years prior, now followed for recurrent bronchitis, severe persistent allergic asthma, and environmental allergies.? She has been using Xolair, Advair, duo nebs, and albuterol MDI with good baseline control of her underlying symptoms.? Her orthopnea and lower extremity edema are well controlled on current regimen of Lasix 40 mg daily.? She denies any recent exacerbations. REPLACED BY [facility] Medical History Colon cancer screening declined COPD (chronic obstructive pulmonary disease) Hypertension Morbid obesity Myofascial pain syndrome Surgical History No pertinent past surgical history Family History Father HTN (hypertension) Mother HTN (hypertension) Brother Substance use disorder Social History Housing: House Alcohol intake: never Patient Tobacco Use Status: Former Tobacco user Quit Date: 1996 Years Smoked: 20 +/- e-Cigarette/Vaping Use: Never Used Second Hand Smoke Exposure: No service: No Current occupational status: employed Current occupation: [employer] Current occupational exposures/hazards: No Cognitive needs: No Hearing needs: No Vision needs: No Review of Systems Const Denies daytime sleepiness, Denies excessive sweating, Denies fatigue, Denies fever(s), Denies lethargy, Denies malaise, Denies night sweats, Denies snoring and Denies weight loss Eyes Denies blurry vision and Denies itchy eyes ENT Denies nasal congestion, Denies post nasal drip, Denies sinus pain, Denies sinus pressure and Denies other ( Thrush) Card Denies chest pain, Denies pedal edema, Denies dyspnea, Denies orthopnea and Denies paroxysmal nocturnal dyspnea Resp Denies cough, Denies hemoptysis, Denies excessive phlegm production, Denies dyspnea, Denies snoring and Denies wheezing GI Denies abdominal pain and Denies heartburn Musc Denies myalgias, Denies arthralgias and Denies joint swelling Skin/Breast Denies rash Neuro Denies memory loss and Denies seizure-like activity Psych Denies abnormal sleep pattern, Denies anxiety and Denies memory loss Endo Denies excessive sweating, Denies fatigue and Denies heat intolerance Joshua/Lymph Denies easy bruising Aller/Immun Denies itchy eyes, Denies seasonal rhinorrhea and Denies wheezing Physical Exam Vital Signs: Last Vital Signs Pulse 106 H 03/31/23 10:01 BP 118/77 03/31/23 10:01 BMI result Body Mass Index 50.1 Const General: no acute distress and alert Nutritional Appearance: obese Orientation/consciousness: Other orientation findings ( oriented) HEENT Head: Yes atraumatic Eyes General: appearance normal, both eyes and all related structures Sclerae: sclerae normal EOM: EOMs intact bilaterally Neck Neck: Yes supple Lymphatic: no lymphadenopathy noted Resp Effort & Inspection: normal respiratory effort and no use of accessory muscles Auscultation: clear to auscultation bilaterally Cardio Rate: regular rate Rhythm: regular rhythm Heart sounds: no gallops, no murmurs and no rubs Skin General skin exam: other ( warm) Extrem General: No clubbing, No cyanosis and No edema Assessment & Plan Assessment & Plan (1) Asthma-COPD overlap syndrome: Code(s): J44.9 - Chronic obstructive pulmonary disease, unspecified Plan: Well controlled on Xolair, Advair, albuterol MDI / nebs. Continue current regimen. (2) Environmental allergies: Code(s): Z91.09 - Other allergy status, other than to drugs and biological substances Plan: Well controlled on Xolair. Continue current regimen. (3) Orthopnea: Code(s): R06.01 - Orthopnea Plan: Well controlled on current regimen of Lasix 40 mg daily. Continue current regimen. Coding Level of Care Code Est Pt Level 4 (83413) Diagnoses Asthma-COPD overlap syndrome J44.9 Environmental allergies Z91.09 Orthopnea R06.01
== END 2023-03-31 10:16 | disposition home or self-care (01) ==
PROVIDERS: PCP Nurse Practitioner Family; Visit Provider Internal Medicine Pulmonary Disease
DX: J44.9 Chronic obstructive pulmonary disease, unspecified (principal); Z91.09 Other allergy status, other than to drugs and biological substances; R06.01 Orthopnea
CPT/HCPCS: 99214

== ENCOUNTER → 2023-03-31 09:57 | Outpatient (BNVA) | payer OTHER, SELFPAY | PROVIDERS: PCP Nurse Practitioner Family; Visit Provider Internal Medicine Pulmonary Disease ==

== ENCOUNTER 2023-04-09 07:54 | Outpatient (REF) | payer OTHER, SELFPAY | END 2023-04-09 07:55 | disposition home or self-care (01) | LOC: HO.MDS 07:54 | PROVIDERS: Visit Provider Internal Medicine Pulmonary Disease | DX: J45.50 Severe persistent asthma, uncomplicated (principal) | CPT/HCPCS: 96372; J2357 ==

== ENCOUNTER 2023-06-15 09:03 | Outpatient (REF) | payer OTHER, SELFPAY ==
[2023-06-15 09:24] VITALS: BMI 45.4
[2023-06-15 09:27] VITALS: BP 139/78; PULSE 87; RESP 18; TEMP 36.8; O2SAT 94
[2023-06-15] MEDS: OMALIZUMAB SUBCUT (11:20)
== END 2023-06-15 09:04 | disposition home or self-care (01) ==
LOC: HO.MDS 09:03
PROVIDERS: Visit Provider Internal Medicine Pulmonary Disease
DX: J45.50 Severe persistent asthma, uncomplicated (principal)
CPT/HCPCS: 96372; J2357

== ENCOUNTER 2023-07-05 08:31 | Outpatient (REF) | payer OTHER, SELFPAY | END 2023-07-05 08:32 | disposition home or self-care (01) | LOC: HO.MAMMO 08:31 | PROVIDERS: PCP Nurse Practitioner Family; Visit Provider Nurse Practitioner Family | DX: Z12.31 Encounter for screening mammogram for malignant neoplasm of breast (principal) | CPT/HCPCS: 77063; 77067 ==

== ENCOUNTER → 2023-07-05 08:45 | Outpatient (BNV) | payer OTHER, SELFPAY | PROVIDERS: PCP Nurse Practitioner Family; Visit Provider Radiology Diagnostic Radiology | DX: Z12.31 Encounter for screening mammogram for malignant neoplasm of breast (principal) | CPT/HCPCS: 77063; 77067 ==

== ENCOUNTER 2023-07-16 08:18 | Outpatient (REF) | payer OTHER, SELFPAY ==
[2023-07-16 08:22] VITALS: BP 126/98; PULSE 98; RESP 20; TEMP 36.6; O2SAT 98
[2023-07-16] MEDS: OMALIZUMAB SUBCUT (09:39)
== END 2023-07-16 08:19 | disposition home or self-care (01) ==
LOC: HO.MDS 08:18
PROVIDERS: Visit Provider Internal Medicine Pulmonary Disease
DX: J45.50 Severe persistent asthma, uncomplicated (principal)
CPT/HCPCS: 96372; J2357

== ENCOUNTER 2023-09-24 09:20 | Outpatient (AMB) | payer OTHER, SELFPAY ==
[2023-09-24 09:24] VITALS: BP 104/66; PULSE 116; O2SAT 94; BMI 49.7
--- NOTE | 2023-09-24 09:24 | A.OFFVIS_ITS ---
Vital Signs 09/24/23 09:24 Height 5 ft 7 in Weight 317 lb 7.45 oz BMI 49.7 BP 104/66 Blood Pressure Location Rt brachial Position Sitting Pulse 116 H Pulse Source Doppler Pulse Oximetry (%) 94 Intake Visit Reasons: shortness of breath Allergies apixaban [From Eliquis] Allergy (Severe, Verified 09/24/23 09:31) Facial Swelling and rash Sulfa (Sulfonamide Antibiotics) Allergy (Unknown, Verified 09/24/23 09:31) cough sulfamethoxazole [From BACTRIM] Allergy (Unknown, Verified 09/24/23 09:31) COUGH trimethoprim [From BACTRIM] Allergy (Unknown, Verified 09/24/23 09:31) COUGH seasonal Allergy (Unknown, Uncoded 01/25/23 10:31) unknown HPI HPI shortness of breath: Details: 62-year-old lady former smoker, quit 30 years prior, now followed for recurrent bronchitis, severe persistent allergic asthma, and environmental allergies.? She has been using Xolair, Advair, duo nebs, and albuterol MDI with good baseline control of her underlying symptoms.? Her orthopnea and lower extremity edema are well controlled on current regimen of Lasix 40 mg daily.? She denies any recent exacerbations. Patient continues to try to lose weight before orthopedic surgery. PENDING SALE TO [facility] Medical History Colon cancer screening declined COPD (chronic obstructive pulmonary disease) Hypertension Morbid obesity Myofascial pain syndrome Surgical History No pertinent past surgical history Family History Father HTN (hypertension) Mother HTN (hypertension) Brother Substance use disorder Social History Housing: House Alcohol intake: never Patient Tobacco Use Status: Former Tobacco user Years Smoked: 20 +/- e-Cigarette/Vaping Use: Never Used Second Hand Smoke Exposure: No service: No Current occupational status: employed Current occupation: [employer] Current occupational exposures/hazards: No Cognitive needs: No Hearing needs: No Vision needs: No Review of Systems Const Denies daytime sleepiness, Denies excessive sweating, Denies fatigue, Denies fever(s), Denies lethargy, Denies malaise, Denies night sweats, Denies snoring and Denies weight loss Eyes Denies blurry vision and Denies itchy eyes ENT Denies nasal congestion, Denies post nasal drip, Denies sinus pain, Denies sinus pressure and Denies other ( Thrush) Card Denies chest pain, Denies pedal edema, Denies dyspnea, Denies orthopnea and Denies paroxysmal nocturnal dyspnea Resp Denies cough, Denies hemoptysis, Denies excessive phlegm production, Denies dyspnea, Denies snoring and Denies wheezing GI Denies abdominal pain and Denies heartburn Musc Denies myalgias, Denies arthralgias and Denies joint swelling Skin/Breast Denies rash Neuro Denies memory loss and Denies seizure-like activity Psych Denies abnormal sleep pattern, Denies anxiety and Denies memory loss Endo Denies excessive sweating, Denies fatigue and Denies heat intolerance Joshua/Lymph Denies easy bruising Aller/Immun Denies itchy eyes, Denies seasonal rhinorrhea and Denies wheezing Physical Exam Vital Signs: Last Vital Signs Pulse 116 H 09/24/23 09:24 BP 104/66 09/24/23 09:24 Pulse Ox 94 09/24/23 09:24 BMI result Body Mass Index 49.7 Const General: no acute distress and alert Nutritional Appearance: obese Orientation/consciousness: Other orientation findings ( oriented) HEENT Head: Yes atraumatic Eyes General: appearance normal, both eyes and all related structures Sclerae: sclerae normal EOM: EOMs intact bilaterally Neck Neck: Yes supple Lymphatic: no lymphadenopathy noted Resp Effort & Inspection: normal respiratory effort and no use of accessory muscles Auscultation: clear to auscultation bilaterally Cardio Rate: regular rate Rhythm: regular rhythm Heart sounds: no gallops, no murmurs and no rubs Skin General skin exam: other ( warm) Extrem General: No clubbing, No cyanosis and No edema Assessment & Plan Assessment & Plan (1) Asthma-COPD overlap syndrome: Code(s): J44.9 - Chronic obstructive pulmonary disease, unspecified Category: Medical Plan: Well controlled on Xolair and albuterol MDI. Continue current regimen. (2) Environmental allergies: Code(s): Z91.09 - Other allergy status, other than to drugs and biological substances Category: Medical Plan: Well controlled on Xolair. Continue current regimen. (3) Orthopnea: Code(s): R06.01 - Orthopnea Category: Medical Plan: Well controlled on Lasix 40 mg daily. Continue current regimen. Coding Level of Care Code Est Pt Level 4 (38282) Diagnoses Asthma-COPD overlap syndrome J44.9 Environmental allergies Z91.09 Orthopnea R06.01
== END 2023-09-24 09:44 | disposition home or self-care (01) ==
PROVIDERS: PCP Nurse Practitioner Family; Visit Provider Internal Medicine Pulmonary Disease
DX: J44.9 Chronic obstructive pulmonary disease, unspecified (principal); Z91.09 Other allergy status, other than to drugs and biological substances; R06.01 Orthopnea
CPT/HCPCS: 99214

== ENCOUNTER → 2023-09-24 09:20 | Outpatient (BNVA) | payer OTHER, SELFPAY | PROVIDERS: PCP Nurse Practitioner Family; Visit Provider Internal Medicine Pulmonary Disease ==

== ENCOUNTER 2023-11-15 10:11 | Outpatient (AMB) | payer OTHER, SELFPAY ==
--- NOTE | 2023-11-15 10:31 | MHC.PC.OV ---
Vital Signs 11/15/23 10:33 Height 5 ft 7 in Weight 318 lb BMI 49.8 BP 128/82 Blood Pressure Location Lt brachial Position Sitting Pulse 110 H Pulse Source Pulse Oximeter Pulse Oximetry (%) 94 Oxygen Delivery Method Room Air Intake Visit Reasons: Sciatic pain Intake Note: Patient here to f/u on sciatic pain Allergies apixaban [From Eliquis] Allergy (Severe, Verified 11/15/23 10:33) Facial Swelling and rash Sulfa (Sulfonamide Antibiotics) Allergy (Unknown, Verified 11/15/23 10:33) cough sulfamethoxazole [From BACTRIM] Allergy (Unknown, Verified 11/15/23 10:33) COUGH trimethoprim [From BACTRIM] Allergy (Unknown, Verified 11/15/23 10:33) COUGH seasonal Allergy (Unknown, Uncoded 11/15/23 10:33) unknown Tobacco use date assessed: 11/15/23 Dental Screening Dental Screen Date: 11/15/23 Did you have a dental visit in the last 12 months?: No Did you have a dental problem in the last 6 months where you did not have access to dental care?: No Was dental information given to patient?: Patient has dentist HPI Sciatic pain HPI Details pt reports early September she developed right sided sciatica. Pt reports lower back pain, radiculopathy down RLE, ongoing pain, moves into right groin. Pt started PT on October 28, getting better, but slowly. Will try dexamethasone. 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 NO sigsn of cauda equina HTN: stable, labs ordered [facility] Medical History Colon cancer screening declined Morbid obesity Myofascial pain syndrome Hypertension COPD (chronic obstructive pulmonary disease) Surgical History No pertinent past surgical history Family History Father HTN (hypertension) Mother HTN (hypertension) Brother Substance use disorder Social History Housing: House Alcohol intake: never Patient Tobacco Use Status: Former Tobacco user Years Smoked: 20 +/- e-Cigarette/Vaping Use: Never Used Second Hand Smoke Exposure: No service: No Current occupational status: employed Current occupation: [employer] Current occupational exposures/hazards: No Cognitive needs: No Hearing needs: No Vision needs: No Questionnaire PHQ-9 Over the last 2 weeks, how often have you been bothered by any of the following problems? 1. Little interest or pleasure in doing things: not at all 2. Feeling down, depressed, or hopeless: not at all 3. Trouble falling or staying asleep, or sleeping too much: not at all 4. Feeling tired or having little energy: not at all 5. Poor appetite or overeating: not at all 6. Feeling bad about yourself - or that you are a failure or have let yourself or your family down: not at all 7. Trouble concentrating on things, such as reading the newspaper or watching television: not at all 8. Moving or speaking so slowly that other people could have noticed. Or the opposite - being so fidgety or restless that you have been moving around a lot more than usual: not at all 9. Thoughts that you would be better off or of hurting yourself in some way: not at all Total score: 0 Depression Screening Interpretation: Negative Depression Screening Done: Yes 13031 - PHQ-9 Billing: Yes Source: Developed by Drs. Flo Eddy, Phyllis Bonilla, Gregorio Tan and colleagues, with an educational yana from [employer]. Thrive Questionnaire Date Thrive assessed: 11/12/23 I am a: Patient What is your living situation today?: I have a steady place to live Within the past 12 months, did the food you bought not last and you didn't have the money to get more?: Never true Within the past 12 months, did you worry whether your food would run out before you got money to buy more?: Never true Do you have trouble paying for medicines?: No Do you have trouble getting transportation to medical appointments?: No Do you have trouble paying your heating and electricity bill?: No Do you have trouble taking care of your child, family member or friend?: No Do you have trouble with day-to-day activities such as bathing, preparing meals, shopping, managing finances, etc.?: No Are you currently unemployed and looking for a job?: No Are you interested in more education?: No Please select the resources that you would like help with: Housing/Residential Currently or been in a relationship where the following occur: No concerns reported THRIVE Score: 0 AUDIT C Alcohol Use Questionnaire (AUDIT-C) 1. How often do you have a drink containing alcohol?: Never Total Score: 0 IRVIN-7 AMB Questionnaire IRVIN-7 Date IRVIN - 7 assessed: 11/15/23 Feeling nervous, anxious, or on edge: 0 = Not at all Not being able to stop or control worryin = Not at all Worrying too much about different things: 0 = Not at all Trouble relaxin = Not at all Being so restless that it is hard to sit still: 0 = Not at all Becoming easily annoyed or irritable: 0 = Not at all Feeling afraid as if something awful might happen: 0 = Not at all Total IRVIN-7 score (0-4 normal; 5-9 mild; 10-14 moderate; 15-21 severe): 0 Source: Developed by Drs. Flo Eddy, Phyllis Bonilla, Gregorio Tan and colleagues, with an educational yana from [employer]. IRVIN-7 Assessment Billing IRVIN-7 Assessment Tool: IRVIN-7 Assessment 55177 Physical exam (Primary Care) Vital Signs: Last Vital Signs Pulse 110 H 11/15/23 10:33 BP 128/82 11/15/23 10:33 Pulse Ox 94 11/15/23 10:33 Oxygen Delivery Method Room Air 11/15/23 10:33 BMI result Body Mass Index 49.8 Tobacco/Smoking Status: Tobacco use Status Tobacco use date assessed 11/15/23 11/15/23 10:40 Patient Tobacco Use Status Former Tobacco user 11/15/23 10:32 e-Cigarette/Vaping Use Never Used 11/15/23 10:32 PHQ-9: PHQ-9 Score PHQ-9: Total score 0 11/15/23 10:40 Depression Screening Interpretation: Negative Thrive Assessment: Date of Thrive Assessment Date Thrive assessed 11/12/23 11/15/23 10:32 Currently or been in a relationship where the following occur: No concerns reported Const General: cooperative and healthy appearing Nutritional Appearance: obese Resp Effort & Inspection: normal respiratory effort Auscultation: clear to auscultation bilaterally Cardio Rate: regular rate Rhythm: regular rhythm Heart sounds: S1 normal heart sound present and S2 normal heart sound present Back/Spine/Pelvis Other: difficult time performing heel and toe ambulation. Assessment and Plan Assessment & Plan (1) Hypertension: Code(s): I10 - Essential (primary) hypertension Orders: Orders Complete Blood Count Auto Diff Today I10 - Essential (primary) hypertension UA CC w/rflx Micro + Cult Today I10 - Essential (primary) hypertension Comprehensive [place]. Panel Fast Today I10 - Essential (primary) hypertension TSH reflex Free T4 Today I10 - Essential (primary) hypertension Lipid Panel Today I10 - Essential (primary) hypertension Vitamin D 25-OH Total Today I10 - Essential (primary) hypertension Referrals Cologuard Test Z12.11 - Encounter for screening for malignant neoplasm of colon, Z12.12 - Encounter for screening for malignant neoplasm of rectum Medications: New dexamethasone 3 times a day for 3 days, twice a day for 3 days, daily for 3 days. 4 mg PO DAILY 9 days 9 tabs 0RF Coding Level of Care Code Est Pt Level 3 (36521) Diagnoses Hypertension I10 Additional Codes IRVIN-7 Assessment Billing - IRVIN-7 Assessment Tool: IRVIN-7 Assessment [id number] ([id number])
[2023-11-15 10:33] VITALS: BP 128/82; PULSE 110; O2SAT 94; BMI 49.8
== END 2023-11-15 11:20 | disposition home or self-care (01) ==
PROVIDERS: PCP Nurse Practitioner Family; Visit Provider Nurse Practitioner Family
DX: I10 Essential (primary) hypertension (principal)
CPT/HCPCS: 99213

== ENCOUNTER 2024-02-08 10:37 | Outpatient (AMB) | payer OTHER, SELFPAY ==
[2024-02-08 10:42] VITALS: BP 126/80; PULSE 100; O2SAT 96; BMI 50.4
--- NOTE | 2024-02-08 10:42 | MHC.PC.OV ---
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 Accompanied by: Self / Same As Patient Allergies apixaban [From Eliquis] Allergy (Severe, Verified 02/08/24 10:43) Facial Swelling and rash Sulfa (Sulfonamide Antibiotics) Allergy (Unknown, Verified 02/08/24 10:43) cough sulfamethoxazole [From BACTRIM] Allergy (Unknown, Verified 02/08/24 10:43) COUGH trimethoprim [From BACTRIM] Allergy (Unknown, Verified 02/08/24 10:43) COUGH seasonal Allergy (Unknown, Uncoded 11/15/23 10:33) unknown Medication List - Last Reconciled 02/08/24 by TAYA Ramirez albuterol sulfate 90 mcg/actuation 2 puffs inhalation Q6H PRN albuterol sulfate 2.5 mg (3 mL) inhalation Q4H PRN cholecalciferol (vitamin D3) 50 mcg PO DAILY fluticasone propion-salmeterol 100-50 mcg/dose (Advair Diskus) 1 inh inhalation DAILY furosemide 40 mg PO DAILY feejzhzn-xdfx-byy3-C-april-bosw 750 mg-644 mg- 30 mg-1 mg (Osteo Bi-Flex Triple Strength) 2 tabs PO DAILY lisinopril 40 mg PO DAILY 90 days nebulizers use nebulizer every 6 hours as needed omalizumab (Xolair) 300 mg subcut Q4W 28 days rivaroxaban (Xarelto) 20 mg PO QPM Tobacco use date assessed: 11/15/23 Dental Screening Dental Screen Date: 11/15/23 HPI Annual PE HPI Details Pt is here for a PE. Will order labs. Due for colon screen, she is willing to do this now, will refer to [facility] GI per pt's request. Mammo is up to date. 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 Pt follows up with cardiology, pulmonology, and ortho. [facility] Medical History Colon cancer screening declined Morbid obesity Myofascial pain syndrome Hypertension COPD (chronic obstructive pulmonary disease) Surgical History No pertinent past surgical history Family History Father HTN (hypertension) Mother HTN (hypertension) Brother Substance use disorder Social History Housing: House Alcohol intake: never Patient Tobacco Use Status: Former Tobacco user Years Smoked: 20 +/- e-Cigarette/Vaping Use: Never Used Second Hand Smoke Exposure: No service: No Current occupational status: employed Current occupation: [employer] Current occupational exposures/hazards: No Cognitive needs: No Hearing needs: No Vision needs: No Questionnaire PHQ-9 Over the last 2 weeks, how often have you been bothered by any of the following problems? 91000 - PHQ-9 Billing: Patient declined-do not bill Source: Developed by Drs. Flo Eddy, Phyllis Bonilla, Gregorio Tan and colleagues, with an educational yana from [employer]. Thrive Questionnaire Date Thrive assessed: 02/08/24 I am a: Patient What is your living situation today?: I have a steady place to live Within the past 12 months, did the food you bought not last and you didn't have the money to get more?: Never true Within the past 12 months, did you worry whether your food would run out before you got money to buy more?: Never true Do you have trouble paying for medicines?: No Do you have trouble getting transportation to medical appointments?: No Do you have trouble paying your heating and electricity bill?: No Do you have trouble taking care of your child, family member or friend?: No Do you have trouble with day-to-day activities such as bathing, preparing meals, shopping, managing finances, etc.?: No Are you currently unemployed and looking for a job?: No Are you interested in more education?: No Please select the resources that you would like help with: None Currently or been in a relationship where the following occur: No concerns reported THRIVE Score: 0 IRVIN-7 AMB Questionnaire IRVIN-7 Date IRVIN - 7 assessed: 11/15/23 Source: Developed by Drs. Flo Eddy, Phyllis Bonilla, Gregorio Tan and colleagues, with an educational yana from [employer]. IRVIN-7 Assessment Billing IRVIN-7 Assessment Tool: pt declined-do not bill Review of Systems Const Denies chills and Denies fever(s) Eyes Denies blurry vision ENT Denies vertigo, Denies dizziness and Denies sore throat Card Denies chest pain at rest, Denies chest pain with activity, Denies diaphoresis, Denies dyspnea and Denies dyspnea on exertion Resp Denies cough, Denies dyspnea, Denies dyspnea on exertion and Denies wheezing GI Denies abdominal pain, Denies melena, Denies hematochezia, Denies constipation, Denies diarrhea and Denies loose stools Denies hematuria Musc Denies numbness and Denies tingling Skin/Breast Denies lesions Neuro Denies vertigo, Denies dizziness, Denies numbness and Denies tingling Psych Denies anxiety, Denies depression, Denies homicidal ideation, Denies suicidal ideation and Denies other (substance abuse) Aller/Immun Denies wheezing Physical exam (Primary Care) Vital Signs: Last Vital Signs Pulse 100 02/08/24 10:42 BP 126/80 02/08/24 10:42 Pulse Ox 96 02/08/24 10:42 BMI result Body Mass Index 50.4 Tobacco/Smoking Status: Tobacco use Status Tobacco use date assessed 11/15/23 02/08/24 10:43 Patient Tobacco Use Status Former Tobacco user 02/08/24 10:43 e-Cigarette/Vaping Use Never Used 02/08/24 10:43 Thrive Assessment: Date of Thrive Assessment Date Thrive assessed 02/08/24 02/08/24 10:43 Currently or been in a relationship where the following occur: No concerns reported Const General: cooperative Nutritional Appearance: obese morbidly obese Orientation/consciousness: patient oriented x3 HENMT Head: Yes normal to inspection, Yes normocephalic and Yes atraumatic Ears: TM's normal bilaterally Eyes General: appearance normal, both eyes and all related structures Alignment and Position: alignment normal and position normal Neck Neck: Yes normal visual inspection, Yes no lymphadenopathy and Yes supple Resp Effort & Inspection: normal respiratory effort Auscultation: diminished lung sounds (though moving air) Cardio Rate: regular rate Rhythm: regular rhythm Heart sounds: S1 normal heart sound present, S2 normal heart sound present and no murmurs GI Palpation (GI): Soft to palpation and nontender Auscultation: normal bowel sounds Skin Other: acne lesions to face (small) Rashes: no rashes Neuro General: patient oriented x3, moves all extremities, no focal motor deficits and deep tendon reflexes 2+ bilaterally Romberg Test: Negative Psych Appearance: grossly normal Mental Status: mental status grossly normal Speech and movement: Normal speech and movement present Affect: normal affect Attitude: cooperative Thought process: Normal thought process present Thought content: Normal thought content present Insight: Good insight present (Psych) Judgement: Good judgement present (Psych) Coding Level of Care Code Est Pt Prev Care 40-64y(81236) Diagnoses Screening for colon cancer Z12.11 Physical exam Z00.00 Vitamin D deficiency E55.9 Postmenopausal Z78.0 Obesity E66.9 Assessment & Plan Assessment & Plan (1) Screening for colon cancer: Code(s): Z12.11 - Encounter for screening for malignant neoplasm of colon Category: Medical Plan: Referred to GI (2) Physical exam: Code(s): Z00.00 - Encounter for general adult medical examination without abnormal findings Category: Medical Plan: Labs ordered (3) Vitamin D deficiency: Code(s): E55.9 - Vitamin D deficiency, unspecified Category: Medical Plan: Labs ordered (4) Postmenopausal: Code(s): Z78.0 - Asymptomatic menopausal state Category: Medical Plan: Bone density ordered (5) Obesity: Code(s): E66.9 - Obesity, unspecified Category: Medical Plan: pt can call her insurance coverage to see coverage of a GLP1-agonist Plan The patient agreed to the use of a quality engineer medical device for this encounter. Scribed for TAYA Chadwick by Maddie Morales quality engineer medical device, on 02/08/2024 at 11:15 EST. Orders: Orders Complete Blood Count Auto Diff Today Z00.00 - Encounter for general adult medical examination without abnormal findings Comprehensive [place]. Panel Fast Today Z00.00 - Encounter for general adult medical examination without abnormal findings TSH reflex Free T4 Today Z00.00 - Encounter for general adult medical examination without abnormal findings Lipid Panel Today Z00.00 - Encounter for general adult medical examination without abnormal findings Vitamin D 25-OH Total Today E55.9 - Vitamin D deficiency, unspecified XR DEXA axial skeleton Today E55.9 - Vitamin D deficiency, unspecified, Z78.0 - Asymptomatic menopausal state UA CC w/rflx Micro + Cult Today Z00.00 - Encounter for general adult medical examination without abnormal findings Referrals Gastroenterology Referral Z12.11 - Encounter for screening for malignant neoplasm of colon
== END 2024-02-08 11:42 | disposition home or self-care (01) ==
PROVIDERS: PCP Nurse Practitioner Family; Visit Provider Nurse Practitioner Family
DX: Z00.00 Encounter for general adult medical examination without abnormal findings (principal); Z12.11 Encounter for screening for malignant neoplasm of colon; E66.9 Obesity, unspecified; Z68.43 Body mass index [BMI] 50.0-59.9, adult; E55.9 Vitamin D deficiency, unspecified; Z78.0 Asymptomatic menopausal state

== ENCOUNTER → 2024-02-08 10:37 | Outpatient (BNVA) | payer OTHER, SELFPAY | PROVIDERS: PCP Nurse Practitioner Family; Visit Provider Nurse Practitioner Family ==

== ENCOUNTER 2024-02-16 10:28 | Outpatient (AMB) | payer OTHER, SELFPAY ==
[2024-02-16 10:45] VITALS: BP 130/70; PULSE 101; BMI 50.3
--- NOTE | 2024-02-16 10:45 | MHC.OFFVIS ---
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 Accompanied by: Self / Same As Patient Allergies apixaban [From Eliquis] Allergy (Severe, Verified 02/08/24 10:43) Facial Swelling and rash Sulfa (Sulfonamide Antibiotics) Allergy (Unknown, Verified 02/08/24 10:43) cough sulfamethoxazole [From BACTRIM] Allergy (Unknown, Verified 02/08/24 10:43) COUGH trimethoprim [From BACTRIM] Allergy (Unknown, Verified 02/08/24 10:43) COUGH seasonal Allergy (Unknown, Uncoded 11/15/23 10:33) unknown Medication List - Last Reconciled 02/16/24 by Andrea Mercedes MD albuterol sulfate 90 mcg/actuation 2 puffs inhalation Q6H PRN albuterol sulfate 2.5 mg (3 mL) inhalation Q4H PRN cholecalciferol (vitamin D3) 50 mcg PO DAILY furosemide 40 mg PO DAILY kefihxin-diie-zia0-C-april-bosw 750 mg-644 mg- 30 mg-1 mg (Osteo Bi-Flex Triple Strength) 2 tabs PO DAILY lisinopril 40 mg PO DAILY 90 days loratadine (Claritin) 10 mL PO DAILY nebulizers use nebulizer every 6 hours as needed omalizumab (Xolair) 300 mg subcut Q4W 28 days rivaroxaban (Xarelto) 20 mg PO QPM HPI Comments Details: 63-year-old female with background history of COPD, hypertension, obesity, left bundle-branch block and paroxysmal atrial fibrillation who is here for follow-up. She had 1 episode of paroxysmal atrial fibrillation many years ago which was a short episode. She was seen and had a cardiac event monitor which showed runs of atrial fibrillation more than 200 beats per minute. She was advised to start Eliquis at this stage given her stroke risk due to chads Vasc score of 2. She is back for follow-up. She is saying she did not get any significant symptoms other than mild fluttering that she felt in her neck for a short period time. 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 With the recent AFib episodes noticed on cardiac event monitor she did not have significant symptoms. She was started on Eliquis and diltiazem. It appears that the diltiazem was not covered by insurance. Today she returns for follow-up. She was previously started on Eliquis 5 mg twice a day. She said she started noticing some cramping on the right side of her chest and abdomen after taking 2nd dose of Eliquis. This is a very localized area on the right side of the chest. She said she start using Eliquis b.i.d. since then. She is just taking once a day. She has dyspnea due to lung disease and obesity. She also has sinus tachycardia and is saying that when she comes for doctor visits she has tachycardia due to anxiety. At home she has checked her heart rate and has never fast. She is going to keep a log of her heart rate. 02/16/24: She is here for follow-up. Denying any dictations. No discomfort. Continue To have off and on she will of breath. She is on Xolair for asthma. She has chronic left bundle-branch block. [facility] Medical History Colon cancer screening declined Morbid obesity Myofascial pain syndrome Hypertension COPD (chronic obstructive pulmonary disease) Surgical History No pertinent past surgical history Family History Father HTN (hypertension) Mother HTN (hypertension) Brother Substance use disorder Social History Housing: House Alcohol intake: never Patient Tobacco Use Status: Former Tobacco user Years Smoked: 20 +/- e-Cigarette/Vaping Use: Never Used Second Hand Smoke Exposure: No service: No Current occupational status: employed Current occupation: [employer] Current occupational exposures/hazards: No Cognitive needs: No Hearing needs: No Vision needs: No Review of Systems Const Denies chills, Denies fatigue, Denies fever(s), Denies frequent falls, Denies weakness, Denies weight gain and Denies weight loss ENT Denies dizziness Card Denies chest pain, Denies leg edema, Denies lightheadedness, Denies palpitations, Denies dyspnea and Denies dyspnea on exertion Resp Denies cough, Denies dyspnea and Denies dyspnea on exertion GI Denies hematochezia Musc Denies abnormal gait, Denies muscle weakness, Denies numbness, Denies radiating pain into limb and Denies tingling Neuro Denies abnormal gait, Denies dizziness, Denies frequent falls, Denies numbness, Denies tingling and Denies weakness Endo Denies fatigue and Denies palpitations Physical Exam Vital Signs: Last Vital Signs Pulse 101 H 02/16/24 10:45 BP 130/70 02/16/24 10:45 BMI result Body Mass Index 50.3 GENERAL APPEARANCE: in no acute distress, pleasant. NECK: no carotid bruit, no jugular venous distention. SKIN: no suspicious lesions, warm and dry. HEART: no murmurs, regular rate and rhythm. LUNGS: clear to auscultation bilaterally. ABDOMEN: soft, nontender. EXTREMITIES: no edema. PERIPHERAL PULSES: equal. NEUROLOGIC: No gross deficits, AAO X 3 Office Procedures EKG Details: Sinus tachycardia 101 beats per minute, left axis deviation, left bundle-branch block, occasional premature ventricular complexes, QTC 474 milliseconds. 75461-Kmtugtntmowihypke, Complete Assessment & Plan Assessment & Plan (1) PAF (paroxysmal atrial fibrillation): Code(s): I48.0 - Paroxysmal atrial fibrillation Category: Medical (2) LBBB (left bundle branch block): Code(s): I44.7 - Left bundle-branch block, unspecified Category: Medical (3) Hypertension: Code(s): I10 - Essential (primary) hypertension Category: Medical Plan [age] year female who is here for follow-up. She has history of hypertension, left bundle-branch block and paroxysmal atrial fibrillation. She is on anticoagulation with Xarelto. Blood pressure is well controlled currently. She has some tachycardia but is saying that she was taking albuterol before she came to the office visit. She has sinus rhythm. She has left bundle-branch block on EKG chronically. We will arrange echocardiogram to assess LVEF because left bundle-branch block sometimes can lead to cardiomyopathy. Clinically she has been stable. Thank you for allowing me to participate in the care of your patient. Please feel free to contact me if you have any questions. Orders: Orders CA echo transthorac w con Today I44.7 - Left bundle-branch block, unspecified Coding Level of Care Code Est Pt Level 4 (14879) Diagnoses PAF (paroxysmal atrial fibrillation) I48.0 LBBB (left bundle branch block) I44.7 Hypertension I10 CPT Codes EKG - CPT: 71889-Mlaelulonxbaldzap, Complete ([id number])
== END 2024-02-16 11:10 | disposition home or self-care (01) ==
LOC: HO.HCS 10:29
PROVIDERS: PCP Nurse Practitioner Family; Visit Provider Internal Medicine Cardiovascular Disease
DX: I48.0 Paroxysmal atrial fibrillation (principal); I44.7 Left bundle-branch block, unspecified; I10 Essential (primary) hypertension
CPT/HCPCS: 93010; 99214

== ENCOUNTER → 2024-02-16 10:28 | Outpatient (BNVA) | payer OTHER, SELFPAY | PROVIDERS: PCP Nurse Practitioner Family; Visit Provider Internal Medicine Cardiovascular Disease | DX: I48.0 Paroxysmal atrial fibrillation (principal); I44.7 Left bundle-branch block, unspecified; I10 Essential (primary) hypertension; Z79.01 Long term (current) use of anticoagulants | CPT/HCPCS: 93005 ==

== ENCOUNTER → 2024-03-22 09:59 | Outpatient (REF) | payer OTHER, SELFPAY ==
--- NOTE | 2024-03-22 10:04 | CA_ITS ---
Transthoracic Echocardiogram Patient (Last, First, Middle): Yanna Holt, Gender: Female Date of : 1960 Age: 63 Procedure Date: 03/22/2024 Procedure Type: Transthoracic Echocardiogram Location: OP Height: 170.18 cm Weight: 145.61 kg BSA: 2.47 m2 Heart Rate: 91 bpm BP: 130 / 70 mmHg Orthotics Prosthetics Assistant: SB Referring MD: Andrea Mercedes MD Team Assistant: Andrea Mercedes MD Symptoms: I44.7 - Left bundle-branch block, unspecified Study Quality: Fair ECG Rhythm: Sinus Conclusions: - Normal left ventricular size and systolic function. The visually estimated ejection fraction is between 55-60%. - Normal right ventricular cavity size and systolic function. Findings Procedure Information Contrast agent, definity, is being given per protocol without apparent complications. The quality of the study was technically difficult. The study quality is limited by patients body habitus and lung artifact. Left Ventricle Normal left ventricular size and systolic function. The visually estimated ejection fraction is between 55-60%. There is no evidence of regional wall motion abnormalities. There is paradoxical septal motion consistent with a left bundle branch block. Diastolic function is indeterminate on the basis of available data. Right Ventricle Normal right ventricular cavity size and systolic function. Atria The left atrium is normal in size. Aortic Valve The aortic valve was not well visualized. There is no aortic valve stenosis. There is no aortic valve regurgitation. Mitral Valve The mitral valve was not well visualized. There is no mitral valve regurgitation. There is no mitral valve stenosis. Pulmonic Valve The pulmonic valve was not well visualized. Tricuspid Valve The tricuspid valve was not well visualized. Tricuspid regurgitation envelope is inadequate for calculation of right ventricular systolic pressure. Normal right atrial pressure. Great Vessels There is mild dilatation of the ascending aorta measuring 3.50 cm. Venous The inferior vena cava is normal in size and collapses greater than 50% with inspiration. Pericardium/Pleural Prominent epicardial adipose tissue noted. There is no evidence of pericardial effusion. Prior Study Comparison No significant change compared to prior study dated: 06/24/2021. Measurements 2D Linear Measurements IVSd: 0.98 0.6-0.9/0.6-1.0 cm LVOT Diam: 2.10 3.0+(-)1.3 cm 2D Systolic Function EF 2C: 56.50 >55% Mitral Valve E'Lateral: 7.46 Aortic Valve AoV Pk Chip: 1.32 AoV Pk Grad: 7.00 JOYA: 2.29 LVOT LVOT Pk Chip: 0.90 LVOT Mn Chip: 0.59 LVOT VTI: 0.13 LVOT Pk Grad: 3.00 LVOT Mn Grad: 2.00 LVOT Diam: 2.10 LVOT Area: 3.46 Diastolic Function E' Laterial: 7.46 Right Ventricle TVS' Chip: 10.40 Great Vessels Aorta Sinus of Valsalva: 3.00 2.0-3.5 cm Ao Asc: 3.50 2.1-3.4 cm Ao Arch: 3.30 Pulmonary Valve PV Pk Chip: 0.96 Peak PV Grad: 4.00 Updated in Other Vendor System with Status of Final Andrea Mercedes MD electronically signed on 03/22/2024 7:29:15 PM with status of Final
== END ==
LOC: HO.CARD 09:59
PROVIDERS: PCP Nurse Practitioner Family; Visit Provider Internal Medicine Cardiovascular Disease
DX: I44.7 Left bundle-branch block, unspecified (principal)
CPT/HCPCS: 93306; Q9957

== ENCOUNTER → 2024-03-22 10:04 | Outpatient (BNV) | payer OTHER, SELFPAY | PROVIDERS: PCP Nurse Practitioner Family; Visit Provider Internal Medicine Cardiovascular Disease | DX: R94.31 Abnormal electrocardiogram [ECG] [EKG] (principal); I44.7 Left bundle-branch block, unspecified | CPT/HCPCS: 93306 ==

== ENCOUNTER 2024-03-31 09:15 | Outpatient (AMB) | payer OTHER, SELFPAY ==
--- OUTSIDE RECORDS SUMMARY | 2024-03-31 09:18 | XMS_ITS ---
Author Organization [facility] Address [address] [place] [address] Care Team Providers Care [employer] Name Role Phone Davida Sommer [phone] ALLERGIES, ADVERSE REACTIONS, ALERTS Substance Code Code System Type Reaction Severity Status Start Date End Date Eliquis 1623803 RxNorm Drug allergy () 0 Bactrim 096501 RxNorm Drug allergy () 0 Bactrim 395057 RxNorm Drug allergy () 1 MEDICATIONS Medication Code Code System Start Date Stop Date Route Dosage Directions Fill Instructions FUROSEMIDE 40MG TAB RxNorm VITAMIN D3 2,000 UNIT SOFTGEL RxNorm 023 1 XARELTO 20 MG TABLET RxNorm 2022 1 albuterol sulfate 0 RxNorm inhalation prednisone 310503 RxNorm 2021 oral 6 hydrochlorothiazi de RxNorm 2021 Claritin RxNorm 2021 lisinopril RxNorm 2021 Tamiflu 417056 RxNorm 024 oral 1 Macrobid 903412 RxNorm 02/10 oral 1 benzonatate 795415 RxNorm 024 oral 1 doxycycline monohydrate 7721844 RxNorm 2021 oral 1 Xolair 0 RxNorm subcutaneo u s Eliquis RxNorm 2021 PROBLEMS Problem Name Code Code System Start Date End Date Stat Hypertension 31222906 [facility] 02/03/2022 Active Atrial fibrillation 14486381 [facility] 02/03/2022 Active Dysuria 86616135 [facility] 02/03/2022 Inactive Hematuria, unspecified 31008864 [facility] 02/03/2022 Inactive COPD 20599562 [facility] 02/11/2022 Active Edema, unspecified 867082571 [facility] A ctive Influenza due to other ident ified influenza virus with other respiratory manifestations 36208003 [facility] 06/03/2023 A ctive ENCOUNTERS Encounter Diagnosis Code Code System Date Stat us Periapical abscess without sinus 169886455 [facility] Active IMMUNIZATIONS * None VITAL SIGNS Code Code System Vitals Name Date Value and Un its 8462-4 [facility] Blood Pressure-Diastolic 04/16/2023 83 mmHg 8480-6 [facility] Blood Pressure-Systolic 04/16/2023 1 38 mmHg 8867-4 [facility] Heart Rate 04/16/2023 99 /min 9279-1 [facility] Respiratory Rate 04/16/2023 17 /min 8310-5 [facility] Body Temperature 04/16/2023 96.8 F 92509-8 [facility] Oxygen Saturation 04/16/2023 97 % SOCIAL HISTORY * None PROCEDURES Code Code System Procedure Date Status Notes 60167 Cpt4 Puncture Aspiration 04/16/2023 completed Chaz Soriano - 04/16/2023 Risks and benefits of procedure and alternatives discussed, and patient verbalized understanding and consent. mouth abscess aspiration; local anesthesia with injection, local infiltration, using lidocaine with epinephrine, 0.5 mL used, 1% lidocaine solution, 27 gauge needle, 18 gauge needle introduced, 0.2 ml aspirate withdrawn.Before treatment, neurovascular function intact distal to injury. After treatment, neurovascular function intact distal to injury.Patient tolerated procedure well. Patient left room without difficulty. Patient was off the Xarelto for the past few days prior to procedure. Small amount of purulent drainage aspirated. MEDICAL EQUIPMENT * Patient has no history of implantable devices ASSESSMENT Assessment You need to be seen by a nicole ley for further evaluation. Take the antibiotics as prescribed. You can take Tylenol (acetaminophen) 650mg every 6 hours as needed for the pain.Avoid eating solid foods. Use liquid, soft, or semi-solid foods. Avoid extremes of temperature (very cold or very hot food/liquids).If you are a smoker, stop, as this will aggravate your pain. Go directly to the Emergency Department if you develop a fever, pain opening your jaw or swallowing, change in your voice, neck stiffness, if you develop any worsening swelling, any other new, concerning symptoms. TREATMENT PLAN Type Description Date MEDICATION Take 04/16/2023 APPOINTMENT If not feeling grzegroz r in 3 day(s), please see your primary care physician. If you do not have a primary care physician, please return to this clinic. 04/16/2023 Lab Tests None GOALS * None HEALTH CONCERNS * No Health Concerns FUNCTIONAL AND COGNITIVE STATUS * None CONSULTATION NOTES * None DISCHARGE SUMMARY NOTES * None HISTORY AND PHYSICAL NOTES * Reason for visit - Illness IMAGING NOTES * None LABORATORY REPORT NARRATIVE NOTES * None PATHOLOGY REPORT NARRATIVE NOTES * None PROGRESS NOTES * None
--- OUTSIDE RECORDS SUMMARY | 2024-03-31 09:19 | XMS_ITS ---
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 In Name Role Phone Maddie Yap Unavailable [phone] ALLERGIES, ADVERSE REACTIONS, ALERTS Substance Code Code System Type Reaction Severity Status Start Date End Date Bactrim 235176 RxNorm Drug allergy () 0 Eliquis 7028702 RxNorm Drug allergy () 0 Bactrim 556528 RxNorm Drug allergy () 1 MEDICATIONS Medication Code Code System Start Date Stop Date Route Dosage Directions Fill Instructions FUROSEMIDE 40MG TAB RxNorm VITAMIN D3 2,000 UNIT SOFTGEL RxNorm 023 1 XARELTO 20 MG TABLET RxNorm 2022 1 albuterol sulfate 0 RxNorm inhalation prednisone 075069 RxNorm 2021 oral 6 hydrochlorothiazi de RxNorm 2021 Claritin RxNorm 2021 lisinopril RxNorm 2021 Tamiflu 688617 RxNorm 024 oral 1 Macrobid 926757 RxNorm 02/10 oral 1 benzonatate 345640 RxNorm 024 oral 1 doxycycline monohydrate 6351377 RxNorm 2021 oral 1 Xolair 0 RxNorm subcutaneo u s Eliquis RxNorm 2021 PROBLEMS Problem Name Code Code System Start Date End Date Stat Hypertension 18494001 [facility] 02/03/2022 Active Atrial fibrillation 11350627 [facility] 02/03/2022 Active Dysuria 74044939 [facility] 02/03/2022 Inactive Hematuria, unspecified 15066474 [facility] 02/03/2022 Inactive COPD 73970765 [facility] 02/11/2022 Active Edema, unspecified 387878542 [facility] A ctive Influenza due to other ident ified influenza virus with other respiratory manifestations 58366026 [facility] 06/03/2023 A ctive ENCOUNTERS Encounter Diagnosis Code Code System Date Stat us Influenza due to other ident ified influenza virus with other respiratory manifestations 63296788 [facility] 06/03 Active IMMUNIZATIONS * None VITAL SIGNS Code Code System Vitals Name Date Value and Un its 8462-4 [facility] Blood Pressure-Diastolic 06/03/2023 93 mmHg 8480-6 [facility] Blood Pressure-Systolic 06/03/2023 1 29 mmHg 8867-4 [facility] Heart Rate 06/03/2023 120 /min 9279-1 [facility] Respiratory Rate 06/03/2023 18 /min 8310-5 [facility] Body Temperature 06/03/2023 99.5 F 70234-9 [facility] Oxygen Saturation 06/03/2023 94 % SOCIAL HISTORY * None PROCEDURES * None RESULTS Test Code Code System Description Result Value Date Ref erence Range [facility] RSV negative 06/03/2023 negative [facility] SARS-CoV-2 Not Detected 06/03/2023 Not De tected [facility] Flu A Detected 06/03/2023 Not Detect ed [facility] Flu B Not Detected 06/03/2023 Not Det ected MEDICAL EQUIPMENT * Patient has no history of implantable devices ASSESSMENT * None TREATMENT PLAN Type Description Date MEDICATION Take 75 mg capsule 06/03/2023 MEDICATION Take 100 mg capsule 06/03/2023 ORDERS Monitor your symptom s closely at home given your underlying COPD and asthma. If your pulse ox drops below 90% you should activate 911 and be transported to the emergency department. Also go to the emergency department if you are having difficulty breathing, shortness of breath, chest pain or fever you cannot control. 06/03/2023 APPOINTMENT If not feeling grzegorz r in 3 day(s), please see your primary care physician. If you do not have a primary care physician, please return to this clinic. 06/03/2023 Labs Tests Test Name Code Code System Date Nelda/Cepheid SARS-CoV-2 & Fl u A/B Multiplex Assay, Amplified Probe Molecular RT-PCR / NAAT 84805 CPT 06/03/2023 Jody 2 RSV Antigen JON 96939 CPT 06/03 GOALS * None HEALTH CONCERNS * No Health Concerns FUNCTIONAL AND COGNITIVE STATUS * None CONSULTATION NOTES * None DISCHARGE SUMMARY NOTES * None HISTORY AND PHYSICAL NOTES * Reason for visit - Illness IMAGING NOTES * None LABORATORY REPORT NARRATIVE NOTES * None PATHOLOGY REPORT NARRATIVE NOTES * None PROGRESS NOTES * None
[2024-03-31 09:20] VITALS: BP 104/62; PULSE 115; O2SAT 98; BMI 50.8
--- NOTE | 2024-03-31 09:20 | MHC.OFFVIS ---
Vital Signs 03/31/24 09:20 Height 5 ft 7 in Weight 324 lb 1.272 oz BMI 50.8 BP 104/62 Blood Pressure Location Lt radial Position Sitting Pulse 115 H Pulse Source Doppler Pulse Oximetry (%) 98 Oxygen Delivery Method Room Air Intake Visit Reasons: Shortness of breath Allergies apixaban [From Eliquis] Allergy (Severe, Verified 03/31/24 09:22) Facial Swelling and rash Sulfa (Sulfonamide Antibiotics) Allergy (Unknown, Verified 03/31/24 09:22) cough sulfamethoxazole [From BACTRIM] Allergy (Unknown, Verified 03/31/24 09:22) COUGH trimethoprim [From BACTRIM] Allergy (Unknown, Verified 03/31/24 09:22) COUGH seasonal Allergy (Unknown, Uncoded 11/15/23 10:33) unknown HPI HPI Shortness of breath: Details: 63-year-old lady former smoker, quit 30 years prior, now followed for recurrent bronchitis, severe persistent allergic asthma, and environmental allergies.? She has been using Xolair, Advair, duo nebs, and albuterol MDI with good baseline control of her underlying symptoms.? Her orthopnea and lower extremity edema are well controlled on current regimen of Lasix 40 mg daily.? She denies any recent exacerbations. [facility] Medical History Colon cancer screening declined Morbid obesity Myofascial pain syndrome Hypertension COPD (chronic obstructive pulmonary disease) Surgical History No pertinent past surgical history Family History Father HTN (hypertension) Mother HTN (hypertension) Brother Substance use disorder Social History Housing: House Alcohol intake: never Patient Tobacco Use Status: Former Tobacco user Years Smoked: 20 +/- e-Cigarette/Vaping Use: Never Used Second Hand Smoke Exposure: No service: No Current occupational status: employed Current occupation: [employer] Current occupational exposures/hazards: No Cognitive needs: No Hearing needs: No Vision needs: No Review of Systems Const Denies daytime sleepiness, Denies excessive sweating, Denies fatigue, Denies fever(s), Denies lethargy, Denies malaise, Denies night sweats, Denies snoring and Denies weight loss Eyes Denies blurry vision and Denies itchy eyes ENT Denies nasal congestion, Denies post nasal drip, Denies sinus pain, Denies sinus pressure and Denies other ( Thrush) Card Denies chest pain, Denies pedal edema, Denies dyspnea, Denies orthopnea and Denies paroxysmal nocturnal dyspnea Resp Denies cough, Denies hemoptysis, Denies excessive phlegm production, Denies dyspnea, Denies snoring and Denies wheezing GI Denies abdominal pain and Denies heartburn Musc Denies myalgias, Denies arthralgias and Denies joint swelling Skin/Breast Denies rash Neuro Denies memory loss and Denies seizure-like activity Psych Denies abnormal sleep pattern, Denies anxiety and Denies memory loss Endo Denies excessive sweating, Denies fatigue and Denies heat intolerance Joshua/Lymph Denies easy bruising Aller/Immun Denies itchy eyes, Denies seasonal rhinorrhea and Denies wheezing Physical Exam Vital Signs: Last Vital Signs Pulse 115 H 03/31/24 09:20 BP 104/62 03/31/24 09:20 Pulse Ox 98 03/31/24 09:20 Oxygen Delivery Method Room Air 03/31/24 09:20 BMI result Body Mass Index 50.8 Const General: no acute distress and alert Nutritional Appearance: obese Orientation/consciousness: Other orientation findings ( oriented) HEENT Head: Yes atraumatic Eyes General: appearance normal, both eyes and all related structures Sclerae: sclerae normal EOM: EOMs intact bilaterally Neck Neck: Yes supple Lymphatic: no lymphadenopathy noted Resp Effort & Inspection: normal respiratory effort and no use of accessory muscles Auscultation: clear to auscultation bilaterally Cardio Rate: regular rate Rhythm: regular rhythm Heart sounds: no gallops, no murmurs and no rubs Skin General skin exam: other ( warm) Extrem General: No clubbing, No cyanosis and No edema Assessment & Plan Assessment & Plan (1) Asthma-COPD overlap syndrome: Code(s): J44.9 - Chronic obstructive pulmonary disease, unspecified Category: Medical Plan: Well controlled on current regimen of Advair, Xolair, and albuterol MDI/nebs. Continue current regimen. (2) Environmental allergies: Code(s): Z91.09 - Other allergy status, other than to drugs and biological substances Category: Medical Plan: Well controlled on Xolair. Continue current regimen. (3) Orthopnea: Code(s): R06.01 - Orthopnea Category: Medical Plan: Hold current diuretic regimen of Lasix 40 mg daily. Continue current regimen. Medications: New fluticasone propion-salmeterol 250-50 mcg/dose (Advair Diskus) 1 inh inhalation BID 60 ea 6RF Coding Level of Care Code Est Pt Level 4 (40171) Complex EM visit Add On G2211 Diagnoses Asthma-COPD overlap syndrome J44.9 Environmental allergies Z91.09 Orthopnea R06.01
== END 2024-03-31 09:35 | disposition home or self-care (01) ==
PROVIDERS: PCP Nurse Practitioner Family; Visit Provider Internal Medicine Pulmonary Disease
DX: J44.9 Chronic obstructive pulmonary disease, unspecified (principal); Z91.09 Other allergy status, other than to drugs and biological substances; R06.01 Orthopnea
CPT/HCPCS: 99214

== ENCOUNTER 2024-05-29 14:58 | Inpatient (IN) | payer OTHER, SELFPAY ==
[2024-05-29] VITALS (10 sets, daily range): BP systolic 97–129; BP diastolic 49–86; PULSE 90–173; RESP 12–20; TEMP 36.4–36.9; O2SAT 95–98; BMI 52.0
--- NOTE | ~2024-05-29 | XR_ITS ---
EXAMINATION: XR CHEST CLINICAL INFORMATION: palpitations COMPARISON: None available. TECHNIQUE: Frontal view of the chest was obtained. FINDINGS: Cardiac enlargement. Low lung volumes, partially apical lordotic projection. No significant abnormality is noted involving the lungs, mediastinum, bony thorax or soft tissues. XR/XR chest 1V IMPRESSION: Cardiac enlargement. No active disease. Electronically signed by: Jn Phillips MD 05/29/2024 04:39 PM [facility]
--- NOTE | ~2024-05-29 | XR_ITS ---
CLINICAL HISTORY: redness, warmth, pain 3 view left foot Comparison: None Findings: Enthesophyte at the insertion of the plantar fascia on the inferior calcaneus. Degenerative changes of the midfoot. No lytic bone lesions. No subcutaneous gas. No ankle effusion. No radiopaque foreign body. IMPRESSION: 1. No acute findings. This document has been electronically signed by: Caio Nelson MD on 05/29/2024 21:56:13
--- NOTE | 2024-05-29 15:02 | ECG_ITS ---
Test Reason : AFIB Blood Pressure : */* mmHG Vent. Rate : 202 BPM Atrial Rate : * BPM P-R Int : * ms QRS Dur : 116 ms QT Int : 248 ms P-R-T Axes : * -35 144 degrees QTcB Int : 454 ms Atrial fibrillation with rapid ventricular response with premature ventricular or aberrantly conducted complexes Left bundle branch block Abnormal ECG When compared with ECG of 09-Aug-2021 19:53, Atrial fibrillation has replaced Sinus rhythm Vent. rate has increased by 101 bpm Referred By: Evans Tan Electronically Signed By: DEJA SOL MD
[2024-05-29 15:51] LABS: MANUAL DIFF FLAG NO
[2024-05-29] MEDS: dilTIAZem HCL 50 MG/10 ML VIAL 15 MG IVPUSH (15:51)
[2024-05-29 15:55] LABS: Basophils Absolute Auto 0.1 X10*3/uL (0.0-0.2); Basophils Percent Auto 0.5 % (0-2); Eosinophils Absolute Auto 0.2 X10*3/uL (0.0-0.4); Eosinophils Percent Auto 1.4 % (0-4); Hematocrit 45.9 % (37.0-47.0); Hemoglobin 15.5 g/dl (12.0-16.0); Imm Gran Abs Auto 0.08 X10*3/uL (0.00-0.03); Imm Gran Pct Auto 0.5 % (0.0-0.4); Lymphocytes Absolute Auto 2.4 X10*3/uL (1.2-4.9); Lymphocytes Percent Auto 16.6 % (20-40); Mean Corpuscular HGB Conc 33.8 g/dl (31.0-35.0); Mean Corpuscular Hemoglobin 27.5 pg (27.0-33.0); Mean Corpuscular Volume 81.5 fL (80.0-98.0); Mean Platelet Volume 9.4 fL (9.4-12.3); Monocytes Absolute Auto 1.4 X10*3/uL (0.1-1.2); Monocytes Percent Auto 9.5 % (2-11); Neutrophils Absolute Auto 10.5 x10*3/uL (2.0-8.3); Neutrophils Percent Auto 71.5 % (45-73); Platelet Count 509 X10*3/uL (160-400); Red Blood Count 5.63 X10*6/uL (4.20-5.50); Red Cell Distribution Width 12.3 % (11.0-16.0); White Blood Count 14.7 X10*3/uL (4.8-10.8)
[2024-05-29 16:00] LABS: INTERNATIONAL NORM RATIO 1.1 (0.9-1.1); Prothrombin Time 12.9 SEC (10.9-12.4)
[2024-05-29] MEDS: dilTIAZem HCL 125 MG in 0.9 % Sodium Chloride 100 ML IVCONT (16:00)
--- NOTE | 2024-05-29 16:02 | ED_ITS ---
HPI - General Adult General Chief complaint: Arrhythmia/Palpitations Stated complaint: afib Time Seen by Provider: 05/29/24 15:37 Source: patient Mode of arrival: ambulatory Limitations: no limitations History of Present Illness HPI narrative: This is a 63-year-old woman with a past medical history of asthma-COPD overlap syndrome, paroxysmal atrial fibrillation on Xarelto, left bundle branch block morphology, hypertension who presents for evaluation of palpitations. Patient reports that she was having left foot pain over the last several days and so she went to the urgent care. She states that at the urgent care she was noted to have elevated heart rate and an EKG was performed. She reports she was told that she was in atrial fibrillation with increased heart rate. She states that she has never had this problem in the past. She states never previously been prescribed any heart rate controlling medications. She states no recent fevers, chills, cough or hemoptysis. She states no chest pain or dyspnea. She states that she has increased her exercise activity recently with a [employer] as well as yoga in attempts to lose weight. She states think he she may have developed gout on her foot. She reports pain on the sole of her foot, which she states is worsened when standing or with ambulation. She states no leg pain or swelling. States no associated trauma. She states no neck pain, back pain, abdominal pain, nausea, vomiting or any urinary symptoms. Related Data Home Medications ?Medication ?Instructions ?Recorded ?Confirmed glucosamine 750 [id number] 2 tab PO DAILY 01/25/23 02/16/24 no1 644 mg-C 30 mg-april 1 mg tablet (Osteo Bi-Flex Triple Strength) loratadine 5 mg/5 mL oral solution 10 ml PO DAILY 02/16/24 02/16/24 (Claritin) Previous Rx's ?Medication ?Instructions ?Recorded nebulizers #1 ea 05/16/22 albuterol sulfate 2.5 mg/3 mL 2.5 mg (3 mL) inhalation Q4H PRN 10/06/22 (0.083 %) solution for nebulization shortness of breath or wheezing #180 mL albuterol sulfate 90 mcg/actuation 2 puff inhalation Q6H PRN dyspnea 06/02/23 aerosol inhaler #1 ea omalizumab 150 mg subcutaneous 300 mg subcut Q4W 28 days #2 ea 01/27/24 solution (Xolair) furosemide 40 mg tablet 40 mg PO DAILY #90 tabs 02/25/24 lisinopril 40 mg tablet 40 mg PO DAILY 90 days #90 tabs 02/28/24 fluticasone 250 mcg-salmeterol 50 1 inh inhalation BID #60 ea 03/31/24 mcg/dose blistr powdr for inhalation (Advair Diskus) rivaroxaban 20 mg tablet (Xarelto) 20 mg PO QPM #90 tabs 04/24/24 cholecalciferol (vitamin D3) 50 50 mcg PO DAILY #90 caps 04/26/24 mcg (2,000 unit) capsule tirzepatide (weight loss) 5 mg/0.5 5 mg (0.5 mL) subcut QWEEK #2 mL 04/26/24 mL subcutaneous pen injector Allergies Allergy/AdvReac Type Severity Reaction Status Date / Time apixaban [From Eliquis] Allergy Severe Facial Verified 05/29/24 15:21 Swelling and rash Sulfa (Sulfonamide Allergy Unknown cough Verified 05/29/24 15:21 Antibiotics) sulfamethoxazole Allergy Unknown COUGH Verified 05/29/24 15:21 [From BACTRIM] trimethoprim [From BACTRIM] Allergy Unknown COUGH Verified 05/29/24 15:21 seasonal Allergy Unknown unknown Uncoded 05/29/24 15:21 [facility] Past Medical History Medical History Colon cancer screening declined Morbid obesity Myofascial pain syndrome Hypertension COPD (chronic obstructive pulmonary disease) Surgical History No pertinent past surgical history Family History Family History Father HTN (hypertension) Mother HTN (hypertension) Brother Substance use disorder Social History Social History Housing: House Alcohol intake: never Patient Tobacco Use Status: Former Tobacco user Years Smoked: 20 +/- Smoked in Last 30 Days: No e-Cigarette/Vaping Use: Never Used Second Hand Smoke Exposure: No Use of substances other than those prescribed or required for medical reasons: No Advance Directives: No Advance Directives Information Provided: No Do you have a plan to hurt others: No Plan service: No Current occupational status: employed Current occupation: [employer] Current occupational exposures/hazards: No Cognitive needs: No Hearing needs: No Vision needs: No Physical Exam ED Vital Signs: Vital Signs - 24 hr 05/29/24 15:19 05/29/24 15:51 05/29/24 16:00 Temperature 98.4 F Pulse Rate 106 H 173 H 151 H Respiratory Rate 18 Blood Pressure 112/85 129/64 97/65 Pulse Oximetry 98 Oxygen Delivery Method Room Air 05/29/24 16:16 05/29/24 16:33 05/29/24 17:21 Temperature Pulse Rate 148 H 157 H 152 H Respiratory Rate 18 16 18 Blood Pressure 104/80 111/79 115/49 L Pulse Oximetry 97 96 98 Oxygen Delivery Method Room Air Room Air Room Air 05/29/24 17:23 Temperature Pulse Rate 134 H Respiratory Rate Blood Pressure 115/49 L Pulse Oximetry Oxygen Delivery Method BMI result Body Mass Index 52.0 Gen: NAD, AOx3 HEENT: NCAT, EOMI, normal conjunctiva CV: Irregular rate and rhythm, 2+ bilateral DP/PT pulses Pulm: CTAB, no increased work of breathing GI: Soft, NTND, no rebound, guarding or rigidity MSK: No asymmetrical calf edema/erythema/CP, no lower extremity deformity, bilateral lower extremity compartments are soft, + pain with extension of the left toes Neuro: Grossly non focal Skin: Warm, dry, no erythema/edema to the left foot/hallux, mild tenderness to palpation to the left sole of foot without associated skin changes, no erythema/purulent/fluctuance the left lower extremity Medications Administered Generic Name Dose Route Start Last Admin Trade Name Freq PRN Reason Stop Dose Admin Diltiazem HCl 125 mg/ Sodium 125 mls @ 0 mls/hr 05/29/24 16:00 05/29/24 16:33 Chloride IVCONT 15 mg/hr .Q0M NATHALY 15 mls/hr Titration Protocol Per Protocol Discontinued Medications Generic Name Dose Route Start Last Admin Trade Name Freq PRN Reason Stop Dose Admin Diltiazem HCl 15 mg 05/29/24 15:45 05/29/24 15:51 Diltiazem Hcl 50 Mg/10 Ml Vial IVPUSH 05/29/24 15:46 15 mg STAT STA Administration Diltiazem HCl 30 mg 05/29/24 16:07 05/29/24 16:11 Diltiazem Hcl 30 Mg Tablet PO 05/29/24 16:08 30 mg ONCE ONE Administration Protocol Diltiazem HCl 20 mg 05/29/24 17:05 05/29/24 17:23 Diltiazem Hcl 50 Mg/10 Ml Vial IVPUSH 05/29/24 17:06 20 mg STAT STA Administration Sodium Chloride 500 mls @ 999 mls/hr 05/29/24 16:30 05/29/24 17:22 Ns IV 05/29/24 17:00 Infused .Q31M NATHALY Infusion Medical Decision Making Medical Decision Making [facility] Narrative: Differential diagnosis includes, but is not limited to atrial fibrillation with rapid ventricular response, electrolyte abnormality, acute kidney injury. Exam overall reassuring. Patient is found to be in atrial fibrillation with rapid ventricular response. I reviewed the patient's labs, EKG and chest x-ray as below. Patient was treated supportively with 15 mg IV diltiazem push, 20 mg IV diltiazem push, 30 mg p.o. and started on diltiazem GTT. I reviewed external/non-ED echocardiogram from March 22, 2024, which demonstrates normal left ventricular size and systolic function. The visually estimated ejection fraction is between the 55-60%. Normal right ventricular cavity size and systolic function. Given reassuring echocardiogram, patient is provided 500 cc IV fluid bolus as well given evident acute kidney injury blood work as below. Patient's case and management is discussed with the admitting hospitalist and patient is accepted for further workup and management. Critical Care Time: A total of 60 minutes spent in direct patient care with coordinating critical resuscitation, procedures, reviewing records, discussing with consultants, reviewing labs, and/or managing patient. Admission/Observation Consideration of admission/observation: Escalation of care including admission/observation considered Consult Healthcare Provider Management of the patient was discussed with: Hospitalist Lab Data [facility] Lab Attestation statement: I reviewed the patient's lab results. I independently reviewed and interpreted the patient's blood work including CBC, coagulation studies, metabolic panel, magnesium level, which is notable for acute kidney injury with creatinine 1.43 (previous 0.85). Otherwise labs are overall reassuring. There is mild leukocytosis of 14.7 and thrombocytosis of 509, which is likely reactive in the setting of atrial fibrillation with rapid ventricular response. Patient provides no clinical history consistent with infectious symptomatology. Coagulation studies are unremarkable. Otherwise labs are reassuring with no electrolyte abnormality, transaminitis or hyperbilirubinemia. Magnesium level is within normal limits. 05/29/24 15:33 05/29/24 15:33 Labs: Lab Results 05/29/24 Range/Units 15:33 WBC 14.7 H (4.8-10.8) X10*3/uL RBC 5.63 H (4.20-5.50) X10*6/uL Hgb 15.5 (12.0-16.0) g/dl Hct 45.9 (37.0-47.0) % MCV 81.5 (80.0-98.0) fL MCH 27.5 (27.0-33.0) pg MCHC 33.8 (31.0-35.0) g/dl RDW 12.3 (11.0-16.0) % Plt Count 509 H D (160-400) X10*3/uL MPV 9.4 (9.4-12.3) fL Immature Gran % (Auto) 0.5 H (0.0-0.4) % Neut % (Auto) 71.5 (45-73) % Lymph % (Auto) 16.6 L (20-40) % [place] % (Auto) 9.5 (2-11) % Eos % (Auto) 1.4 (0-4) % Baso % (Auto) 0.5 (0-2) % Lymph # (Auto) 2.4 (1.2-4.9) X10*3/uL [place] # (Auto) 1.4 H (0.1-1.2) X10*3/uL Eos # (Auto) 0.2 (0.0-0.4) X10*3/uL Baso # (Auto) 0.1 (0.0-0.2) X10*3/uL Abs Immat Gran (auto) 0.08 H (0.00-0.03) X10*3/uL Absolute Neuts (auto) 10.5 H (2.0-8.3) x10*3/uL Absolute Nucleated RBC 0.000 (0.0-0.012) X10*3/uL Nucleated RBC % (auto) 0.0 (0.0-0.2) /100WBC PT 12.9 H (10.9-12.4) SEC INR 1.1 (0.9-1.1) Sodium 137 (135-145) mmol/L Potassium 4.0 (3.3-5.1) mmol/L Chloride 102 (96-108) mmol/L Carbon Dioxide 20 L (22-29) mmol/L Anion Gap 19 (12-20) BUN 21 H (9-16) mg/dL Creatinine 1.43 H (0.5-1.4) mg/dL Estim Creat Clear Calc 59.8 Estimated GFR 37 Random Glucose 108 (60-115) mg/dL Calcium 9.6 (8.4-10.2) mg/dL Magnesium 1.9 (1.6-2.6) mg/dL Total Bilirubin 0.6 (0.0-1.0) mg/dL AST 23 (5-31) U/L ALT 25 (0-31) U/L Alkaline Phosphatase 109 (39-117) U/L Total Protein 8.2 H (6.5-8.0) g/dL Albumin 4.3 (3.5-5.0) g/dL Independent Interpretation I performed an independent interpretation of an: EKG and Plain X-Ray Interpretation: I independently reviewed and interpreted the patient's EKG, which demonstrates atrial fibrillation with rapid ventricular response, heart rate 202 beats per minute, QRS 116, left bundle-branch block, QTC 454, no STEMI. I independently reviewed and interpreted the patient's chest x-ray, which demonstrates no pleural effusion, focal consolidation or pneumothorax. Radiology Impression Discussion of test interpretation with radiology: I have reviewed the radiologist's reading. Radiologist Impression: XR/XR chest 1V IMPRESSION: Cardiac enlargement. No active disease. Electronically signed by: Jn Phillips MD 05/29/2024 04:39 PM [facility] [place], [place] Dictated By: Jn Phillips MD Signed By: <Electronically signed by Jn Phillips MD in OV> 05/29/24 8200 Discharge Plan Discharge Clinical Impression: Atrial fibrillation with rapid ventricular response, Acute kidney injury Patient Disposition: Admitted As Inpatient Prescriptions: No Action (DME[place] [facility] [place] .ROUTE .MEDSUPPLY Qty: 1 0RF Rx Instructions: use nebulizer every 6 hours as needed albuterol sulfate 90 mcg/actuation HFA aerosol inhaler 2 puff inhalation Q6H PRN (Reason: dyspnea) Qty: 1 6RF Xolair 150 mg recon soln 300 mg subcut Q4W 28 Days Qty: 2 12RF Rx Instructions: requires multiple injection sites; do not exceed 150 mg per injection site furosemide 40 mg tablet 40 mg PO DAILY Qty: 90 1RF lisinopril 40 mg tablet 40 mg PO DAILY 90 Days Qty: 90 1RF Xarelto 20 mg tablet 20 mg PO QPM Qty: 90 3RF cholecalciferol (vitamin D3) 50 mcg (2,000 unit) capsule 50 mcg PO DAILY Qty: 90 2RF tirzepatide (weight loss) 5 mg/0.5 mL pen injector 5 mg subcut QWEEK Qty: 2 0RF Rx Instructions: for 4 weeks Osteo Bi-Flex Triple Strength 750 mg-644 mg- 30 mg-1 mg tablet 2 tab PO DAILY albuterol sulfate 2.5 mg /3 mL (0.083 %) solution for nebulization 2.5 mg inhalation Q4H PRN (Reason: shortness of breath or wheezing) Qty: 180 6RF fluticasone propion-salmeterol [Advair Diskus] 250-50 mcg/dose blister with device 1 inh inhalation BID Qty: 60 6RF loratadine [Claritin] 5 mg/5 mL solution 10 ml PO DAILY Print Language: British
[2024-05-29] MEDS: dilTIAZem HCL 30 MG TABLET PO ×2 (16:11→22:54)
[2024-05-29 16:14] LABS: Alanine Aminotransferase 25 U/L (0-31); Albumin Level 4.3 g/dL (3.5-5.0); Alkaline Phosphatase 109 U/L (39-117); Anion Gap 19 (12-20); Aspartate Amino Transferase 23 U/L (5-31); Bilirubin Total 0.6 mg/dL (0.0-1.0); Blood Urea Nitrogen 21 mg/dL (9-16); Calcium 9.6 mg/dL (8.4-10.2); Carbon Dioxide 20 mmol/L (22-29); Chloride 102 mmol/L (96-108); Creatinine Clr Calc Pharmacy 59.8; Estimated Glomerular Filt Rate 37; Glucose Random 108 mg/dL (60-115); Magnesium 1.9 mg/dL (1.6-2.6); Sodium 137 mmol/L (135-145); Total Protein 8.2 g/dL (6.5-8.0)
--- OUTSIDE RECORDS SUMMARY | 2024-05-29 16:36 | XMS_ITS | Clinical Summary ---
Author Organization 175 [facility] Address [address] [place] [address] Phone Care Team Providers Care Photo Mask Processor Name Role Phone Ike Bryson MD Primary Care Provider [phone] Allergies Active Allergy Reactions Criticality Noted Date Comments Sulfamethoxazole-Trimethoprim 2023 Medications albuterol HFA (PROAIR HFA ; PROVENTIL HFA ; VENTOLIN HFA) 90 mcg/actuation inhaler INHALE 2 PUFSS BY MOUTH EVERY 6 HOURS NEEDED FOR DYSPNEA 01/28/2024 Active cholecalciferol (VITAMIN D-3) 50 mcg (2,000 unit) capsule Take 1 capsule (2,000 Units total) by mouth 1 (one) time each day. 10/13/2023 Active furosemide (LASIX) 40 mg tablet Take 1 tablet (40 mg total) by mouth 1 (one) time each day. 02/25/2024 Active lisinopril (PRINIVIL,ZESTR IL) 40 mg tablet Take 1 tablet (40 mg total) by mouth 1 (one) time each day. 02/28/2024 Active Xolair 150 mg injection 02/24/2024 Active Xarelto 20 mg tablet Take 1 tablet (20 mg total) by mouth. 02/24/2024 Active Zepbound 2.5 mg/0.5 mL injection 03/03/2024 Active Active Problems Problem Noted Date Diagnosed Date Class 3 severe obesity witho ut serious comorbidity with body mass index (BMI) of 50.0 to 59.9 in adult 03/09/2024 Encounters Date Type Department Care Team Description 03/21/2024 1:30 PM EST Nutrition Bariatric Surgery - [place] [address] [facility] [address] [place] [address] Class 3 severe obesity without serious comorbidity with body mass index (BMI) of 50.0 to 59.9 in adult, unspecified obesity type (CMS/HCC) (Primary Dx) 03/09/2024 2:30 PM EST Office Visit Bariatric Surgery - [address] [phone] Nia Page PA Class 3 severe obesity due to excess calories with serious comorbidity and body mass index (BMI) of 50.0 to 59.9 in adult (CMS/HCC) (Primary Dx) from Last 3 Months Social History Tobacco Use Types Packs/Day Years Used Date Smoking Tobacco: Never Assessed Comments Unknown Sex and Gender Information Value Date Recorded Sex Assigned at Not on file Legal Sex Female 11:41 AM EDT Gender Identity Not on file Sexual Orientation Not on file Last Filed Vital Signs Vital Sign Reading Time Taken Comments Blood Pressure 159/84 03/09/2024 2:34 PM EST Pulse 111 03/09/2024 2:34 PM EST Temperature - - Respiratory Rate - - Oxygen Saturation - - Inhaled Oxygen Concentration - - Weight 147 kg (325 lb) 03/21/2024 1:33 PM EST Height 165.1 cm (5' 5 ) 03/09/2024 2:34 PM EST Body Mass Index 54.08 03/09/2024 2:34 PM EST Plan of Treatment Upcoming Encounters Date Type Department Care Team (Late st Contact Info) Description 06/19/2024 10:00 AM EST Nutrition Bariatric Surgery - [address] [phone] [phone] Health Maintenance Due Date Last Done Comments Breast Cancer Screening 1960 DTaP,Tdap,and Td Vaccines (1 - Tdap) 07/17/1979 Cervical Cancer Screening: P ap Smear 1981 Zoster Vaccines (1 of 2) 2010 RSV Immunization Patients 60 + Years Old (1 - Risk 60-74 years 1-dose series) 2020 COVID-19 Vaccine ( - 2023-2 5 season) 2023 Influenza Vaccine (#1) 2023 Cholesterol Screening (Lipid Panel) 02/04/2024 Colorectal Cancer Screening: Colonoscopy 02/04/2024 Depression Screening 02/04/2024 HIV Screening 02/04/2024 Hepatitis C Screening 02/04/2024 Social Influencers of Health Screening 02/04/2024 HIB Vaccines Aged Out No longer eligi ble based on patient's age to complete this topic HPV Vaccines Aged Out No longer eligi ble based on patient's age to complete this topic Hepatitis A Vaccines Aged Out No long er eligible based on patient's age to complete this topic Hepatitis B Vaccines Aged Out No long er eligible based on patient's age to complete this topic IPV Vaccines Aged Out No longer eligi ble based on patient's age to complete this topic MMR Vaccines Aged Out No longer eligi ble based on patient's age to complete this topic Meningococcal ACWY Vaccine Aged Out N o longer eligible based on patient's age to complete this topic Pneumococcal Vaccine: Pediat rics (0 to 5 Years) and At-Risk Patients (6 to 64 Years) Aged Out No longer eligible b ased on patient's age to complete this topic RSV Immunization Patients Un yamila 20 months Aged Out No longer eligible b ased on patient's age to complete this topic Varicella Vaccines Aged Out No longer eligible based on patient's age to complete this topic Insurance [employer] Care Teams Photo Mask Processor Relationship Specialty Start Date End Date Ike Bryson MD [address] [place] [phone] PCP - General Internal Medicine 03/06/24
[2024-05-29] MEDS: 0.9 % Sodium Chloride 500 ML 999 ML IV (16:48)
[2024-05-29] MEDS: dilTIAZem HCL 50 MG/10 ML VIAL 20 MG IVPUSH (17:23)
--- NOTE | 2024-05-29 18:49 | PC.NURSE ---
per Dr. Segura can titrate dilt down to 10mg/hr
--- NOTE | 2024-05-29 19:40 | P.HPHOSP_ITS ---
History of Present Illness Date of Service: 05/29/24 Chief Complaint: Palpitations This is a 63-year-old female with pertinent history of hypertension, obesity, COPD not home oxygen, paroxysmal atrial fibrillation on Xarelto, left bundle branch block who presents to the emergency department for evaluation of tachycardia. Patient states she has been having left foot redness and pain that has been ongoing for the last 3 weeks. Initially the redness was limited to the toes but it has spread to the foot. Also has associated warmth and pain with ambulation. Patient went to urgent care today for evaluation and was noted to be in AFib with RVR and sent to the ER. Does admit poor p.o. intake especially liquids over the last few days. She denies palpitations or shortness of breath. No history of leg infection in the past. No fever, chills. No history of gout. No chest pain, abdominal pain, changes in urinary or bowel habits. In the emergency department, patient was found to be in AFib with RVR and initiated IV diltiazem drip. Also found to have CRISTINA with creatinine 1.43 Review of Systems 2 Constitutional: Constitutional: Reports fatigue, Reports malaise and Reports weakness Cardiovascular: Cardiovascular: Reports no additional cardiovascular complaints Respiratory: Respiratory: Reports no additional respiratory complaints Neurologic: Reports weakness Endocrine: Endocrine: Reports fatigue [facility] Medical History Colon cancer screening declined Morbid obesity Myofascial pain syndrome Hypertension COPD (chronic obstructive pulmonary disease) Family History Father HTN (hypertension) Mother HTN (hypertension) Brother Substance use disorder Surgical History No pertinent past surgical history Social History Housing: House Alcohol intake: never Patient Tobacco Use Status: Former Tobacco user Years Smoked: 20 +/- Smoked in Last 30 Days: No e-Cigarette/Vaping Use: Never Used Second Hand Smoke Exposure: No Use of substances other than those prescribed or required for medical reasons: No Advance Directives: No Advance Directives Information Provided: No Do you have a plan to hurt others: No Plan service: No Current occupational status: employed Current occupation: [employer] Current occupational exposures/hazards: No Cognitive needs: No Hearing needs: No Vision needs: No Meds Allergies Allergy/AdvReac Type Severity Reaction Status Date / Time apixaban [From Eliquis] Allergy Severe Facial Verified 05/29/24 15:21 Swelling and rash Sulfa (Sulfonamide Allergy Unknown cough Verified 05/29/24 15:21 Antibiotics) sulfamethoxazole Allergy Unknown COUGH Verified 05/29/24 15:21 [From BACTRIM] trimethoprim [From BACTRIM] Allergy Unknown COUGH Verified 05/29/24 15:21 seasonal Allergy Unknown unknown Uncoded 05/29/24 15:21 Active Medications: Current Medications Diltiazem HCl 125 mg/ Sodium (Chloride) 125 mls @ 0 mls/hr IVCONT .Q0M NATHALY; Protocol Last Titration: 05/29/24 18:48 Dose: 10 mg/hr, 10 mls/hr Home Medications ?Medication ?Instructions ?Recorded ?Confirmed ?Last Taken ?Type doxycycline hyclate 100 mg tablet 100 mg PO BID 05/29/24 05/29/24 Unknown History fluticasone 250 mcg-salmeterol 50 1 inh inhalation DAILY 05/29/24 05/29/24 05/29/24 History mcg/dose blistr powdr for inhalation (Advair Diskus) loratadine 10 mg tablet (Claritin) 10 mg PO DAILY PRN Allergy Symptoms 05/29/24 05/29/24 05/29/24 History prednisone 20 mg tablet 20 mg PO BID 05/29/24 05/29/24 Unknown History rivaroxaban 20 mg tablet (Xarelto) 20 mg PO BEDTIME 05/29/24 05/29/24 05/29/24 History Physical Exam 2 Vital Signs and Narrative: Vital Signs: Last Vital Signs Temp 98.4 F 05/29/24 15:19 Pulse 121 H 05/29/24 18:47 Resp 20 05/29/24 18:47 BP 101/77 05/29/24 18:47 Pulse Ox 98 05/29/24 18:47 O2 Del Method Room Air 05/29/24 18:47 BMI result Body Mass Index 52.0 Middle-aged female lying in bed in no distress Neck supple, no JVD Irregularly irregular, S1-S2 heard Regular breath sounds bilaterally, no wheezing or crackles appreciated Abdomen soft nontender, no guarding, no rigidity Patient is awake, alert and oriented to self, place, time and person ; no focal motor deficit Psych: Normal mood Left foot with erythema, warmth Results Labs 05/29/24 15:33 05/29/24 15:33 Labs: Laboratory Results - last 24 hr 05/29/24 15:33 MCV 81.5 MCH 27.5 MCHC 33.8 RDW 12.3 Plt Count 509 H D MPV 9.4 Immature Gran % (Auto) 0.5 H Neut % (Auto) 71.5 Lymph % (Auto) 16.6 L [place] % (Auto) 9.5 Eos % (Auto) 1.4 Baso % (Auto) 0.5 Lymph # (Auto) 2.4 [place] # (Auto) 1.4 H Eos # (Auto) 0.2 Baso # (Auto) 0.1 Abs Immat Gran (auto) 0.08 H Absolute Neuts (auto) 10.5 H Absolute Nucleated RBC 0.000 Nucleated RBC % (auto) 0.0 PT 12.9 H INR 1.1 Anion Gap 19 Estim Creat Clear Calc 59.8 Estimated GFR 37 Random Glucose 108 Calcium 9.6 Magnesium 1.9 Total Bilirubin 0.6 AST 23 ALT 25 Alkaline Phosphatase 109 Total Protein 8.2 H Albumin 4.3 Imaging Radiologist's Impressions: Impressions Chest X-Ray 05/29/24 16:20 IMPRESSION: Cardiac enlargement. No active disease. Electronically signed by: Jn Phillips MD 05/29/2024 04:39 PM [facility] [place] Assessment and Plan (1) Atrial fibrillation with rapid ventricular response: Status: Acute (2) Acute kidney injury: Status: Acute Plan This is a 63-year-old female with pertinent history of hypertension, obesity, COPD not home oxygen, paroxysmal atrial fibrillation on Xarelto, left bundle branch block who presents to the emergency department for evaluation of tachycardia. #. AFib with RVR: Will admit patient with cardiac monitoring. Initiated on IV diltiazem drip and p.o. diltiazem. Obtaining TSH and echo. Cardiology consulted. Patient on Xarelto #. Acute kidney injury stage I: Monitor with crystalloid resuscitation. Avoid nephrotoxins #. Sepsis due to left foot nonpurulent cellulitis: Initiating IV cefazolin. X-ray pending. Resuscitated with IV crystalloids. Lactic acid and blood culture pending #. Hypertension: Hold lisinopril and furosemide in the setting of CRISTINA #. Obesity: Counseled regarding diet and exercise #. COPD: No exacerbation during admission. Continue home inhalers Med rec pending DVT prophylaxis: Xarelto Full code Admit as inpatient and will require two night minimum hospital stay for IV diltiazem drip, IV antibiotics, hemodynamic monitoring in a patient with AFib with RVR (as above), which is not possible in a lesser acute setting. Cardiology consult pending Quality Stroke Does the patient have a stroke diagnosis?: No VTE Prior VTE?: No VTE Risk Level:: Medical - moderate - high VTE Device Contraindication: Treatment Not Indicated VTE Drug Contraindication: N/A - Med Ordered
--- OUTSIDE RECORDS SUMMARY | 2024-05-29 19:50 | XMS_ITS | Clinical Summary ---
Author Organization 175 [facility] Address [address] [place] [address] Phone Care Team Providers Care Certified Composites Technician Name Role Phone Ike Bryson MD Primary Care Provider [phone] Allergies Active Allergy Reactions Criticality Noted Date [...] 1:30 PM EST Nutrition Bariatric Surgery - [place] 175 [facility] [address] [place] [address] Class 3 severe obesity without serious comorbidity with body mass index (BMI) of 50.0 to 59.9 in adult, unspecified obesity type (CMS/HCC) (Primary Dx) 03/09/2024 2:30 PM EST Office Visit Bariatric Surgery - [address] [phone] Nia Page PA Class 3 severe obesity [...] 10:00 AM EST Nutrition Bariatric Surgery - [address] [phone] [phone] Health Maintenance Due Date Last Done Comments [...] complete this topic Insurance [employer] Care Teams Certified Composites Technician Relationship Specialty Start Date End Date Ike Bryson MD [address] [place] [phone] PCP - General Internal Medicine 03/06/24
--- NOTE | 2024-05-29 20:47 | PHA.MEDREC ---
Addendum entered by Melina Almonte RPh 05/29/24 21:16: [facility] reviewed Original Note: Pharmacy Consult ? Medication Reconciliation Pharmacy has completed the medication reconciliation. Spoke with patient and she confirmed her medications. Patient confirmed she is taking the Adviar Diskus once daily instead of twice daily. She confirmed she is still taking the Xolair once every 4 weeks and confirmed she last got it on May 12. She confirmed she stopped taking the Tirzepatide injection once a week and states she was taking it up until the end of March but her insurance does not cover it anymore and she stopped it. She confirmed she was not able to start or get the Prednisone 20mg and Doxycycline 100mg tabs since she came right from urgent care to here. She confirmed she took her medications this morning.
[2024-05-29 22:06] LABS: Lactic Acid 1.6 mmol/L (0.5-2.0)
[2024-05-29] MEDS: Rivaroxaban 20 MG TABLET PO (22:54)
[2024-05-29] MEDS: ceFAZolin Sodium 1 GM VIAL IVPUSH (22:54)
[2024-05-30] MEDS: 0.9 % Sodium Chloride Flush 3 ML SYRINGE IVFLUSH
[2024-05-30 00:40] VITALS: BP 103/64; PULSE 88; RESP 12; TEMP 36.5; O2SAT 98
[2024-05-30 03:56] LABS: Hematocrit 39.9 % (37.0-47.0); Hemoglobin 13.6 g/dl (12.0-16.0); Mean Corpuscular HGB Conc 34.1 g/dl (31.0-35.0); Mean Corpuscular Hemoglobin 27.8 pg (27.0-33.0); Mean Corpuscular Volume 81.6 fL (80.0-98.0); Mean Platelet Volume 9.2 fL (9.4-12.3); Platelet Count 397 X10*3/uL (160-400); Red Blood Count 4.89 X10*6/uL (4.20-5.50); Red Cell Distribution Width 12.5 % (11.0-16.0); White Blood Count 11.9 X10*3/uL (4.8-10.8)
[2024-05-30 04:17] LABS: Anion Gap 16 (12-20); Blood Urea Nitrogen 25 mg/dL (9-16); Calcium 9.2 mg/dL (8.4-10.2); Carbon Dioxide 24 mmol/L (22-29); Chloride 104 mmol/L (96-108); Creatinine Clr Calc Pharmacy 55.1; Estimated Glomerular Filt Rate 34; Glucose Random 106 mg/dL (60-115); Potassium 4.6 mmol/L (3.3-5.1); Sodium 139 mmol/L (135-145)
[2024-05-30 04:34] LABS: Thyroid Stimulating Hormone 1.14 uIU/mL (0.32-4.0)
[2024-05-30 04:36] VITALS: BP 102/71; PULSE 84; RESP 12; TEMP 36.4; O2SAT 97
[2024-05-30] MEDS: ceFAZolin Sodium 1 GM VIAL IVPUSH ×2 (04:58→12:13)
[2024-05-30 07:33] VITALS: BP 126/76; PULSE 80; RESP 16; TEMP 36.5; O2SAT 96
[2024-05-30] MEDS: Fluticasone/Vilanterol 100/25 BLST.W.DEV 1 PUFF INHALE (07:40)
[2024-05-30 07:41] VITALS: PULSE 102; RESP 18; O2SAT 96
[2024-05-30 08:43] VITALS: BP 118/81; PULSE 89; RESP 16; TEMP 36.7; O2SAT 93
[2024-05-30 08:44] VITALS: BMI 51.9
[2024-05-30 10:39] LABS: Uric Acid 11.1 mg/dL (2.4-5.7)
[2024-05-30 10:53] VITALS: BP 134/71; PULSE 98
[2024-05-30] MEDS: Cholecalciferol (Vitamin D3) 25 MCG TABLET 50 MCG PO (10:53)
[2024-05-30] MEDS: Metoprolol Succinate ER 50 MG TAB.ER.24H PO (10:53)
--- NOTE | 2024-05-30 11:01 | P.CONCA_ITS ---
History of Present Illness History of Present Illness Date of Service: 05/30/24 Requesting physician: Naeem Hidalgo Consult reason: atrial fibrillation Chief complaint: Palpitations Narrative: I was consulted to see Yanna in cardiology consultation today for atrial fibrillation. She says she was referred from urgent Care because of rapid heart rate, when she came to the emergency room she was in rapid atrial fibrillation at 203 beats per minute with left bundle-branch block. She was then given medications for rate control and converted back to sinus rhythm and today is in sinus rhythm. She had no symptoms related to the atrial fibrillation yesterday. She had no lightheadedness, rapid heart rate, shortness of breath, orthopnea. She has prior history of paroxysmal atrial fibrillation has on Xarelto for oral anticoagulation. She also history of hypertension, left bundle-branch block, obesity. She denies any showed diabetes, congestive heart failure, stroke, coronary artery disease. She is currently on no rate lowering medications. She said over the last few days she has been having pain in his left foot and not able to walk or put weight on it and therefore was avoiding to drink a lot of fluid as she did not want to go back and forth in the bathroom. She has family history of gout including a dad and thought that she was having gout he was trying to self treat but went to the urgent care she could not tolerate the pain and subsequently was referred to the emergency room for rapid heart rate. Suspected to have cellulitis and has been given antibiotics. She was mild leukocytosis and acute kidney injury. Uric acid just done shows significantly elevated uric acid 11.1. Review of Systems 2 Constitutional: Constitutional: Reports no additional constitutional complaints Eyes: Eyes: Reports no additional eye complaints Cardiovascular: Cardiovascular: Denies chest pain, Reports rapid heart rate, Denies lightheadedness, Denies Loss of Consciousness, Denies palpitations and Denies dyspnea Respiratory: Respiratory: Denies no additional respiratory complaints and Denies dyspnea Gastrointestinal: Gastrointestinal: Denies no additional gastrointestinal complaints Genitourinary: Genitourinary: Denies no additional female genitourinary complaints Musculoskeletal: Musculoskeletal: Reports other (Left foot pain) Integumentary/Breasts: Skin/Breast: Denies system reviewed and no additional complaints, except as docu Neurologic: Denies system reviewed and no additional complaints, except as documented Psychiatric: Psychiatric: Denies no additional psychiatric complaints Endocrine: Endocrine: Denies no additional endocrine complaints and Denies palpitations [facility] Past Medical History Medical History Colon cancer screening declined Morbid obesity Myofascial pain syndrome Hypertension COPD (chronic obstructive pulmonary disease) Family History Family History Father HTN (hypertension) Mother HTN (hypertension) Brother Substance use disorder Surgical History Surgical History No pertinent past surgical history Social History Social History Household Members: Children Housing: House Do you presently have visiting nurse or other home services: No Alcohol intake: never Patient Tobacco Use Status: Former Tobacco user Years Smoked: 20 +/- e-Cigarette/Vaping Use: Never Used Second Hand Smoke Exposure: No service: No Current occupational status: employed Current occupation: [employer] Current occupational exposures/hazards: No Cognitive needs: No Hearing needs: No Vision needs: No Meds Allergies Allergy/AdvReac Type Severity Reaction Status Date / Time apixaban [From Eliquis] Allergy Severe Facial Verified 05/29/24 15:21 Swelling and rash Sulfa (Sulfonamide Allergy Unknown cough Verified 05/29/24 15:21 Antibiotics) sulfamethoxazole Allergy Unknown COUGH Verified 05/29/24 15:21 [From BACTRIM] trimethoprim [From BACTRIM] Allergy Unknown COUGH Verified 05/29/24 15:21 seasonal Allergy Unknown unknown Uncoded 05/29/24 15:21 Active Medications: Current Medications Acetaminophen (Acetaminophen 325 Mg Tablet) 975 mg PO Q6H NATHALY Albuterol Sulfate (Albuterol Sulfate 90 Mcg 8 Gm Inhaler) 2 puff INHALE Q6H PRN PRN Reason: dyspnea Albuterol Sulfate (Albuterol Sulfate (0.083%) 2.5 Mg/3 Ml Vial.Neb) 2.5 mg INHALE Q4H PRN PRN Reason: shortness of breath or wheezing Calcium Carbonate (Calcium Carbonate 750 Mg Tab.Chew) 750 mg PO Q4H PRN PRN Reason: Heartburn Cefazolin Sodium (Cefazolin Sodium 1 Gm Vial) 1 gm IVPUSH Q8H NATHALY Last Admin: 05/30/24 04:58 Dose: 1 gm Colchicine (Colchicine 0.6 Mg Tablet) 1.2 mg PO ONCE ONE Stop: 05/30/24 10:56 Fluticasone/Vilanterol (Fluticasone/Vilanterol 100/ Blst.W.Dev) 1 puff INHALE RDAILY [facility] Last Admin: 05/30/24 07:40 Dose: 1 puff Loratadine (Loratadine 10 Mg Tablet) 10 mg PO DAILY PRN PRN Reason: Allergy Symptoms Magnesium Hydroxide (Milk Of Magnesia 30 Ml Oral.Susp) 30 ml PO DAILY PRN PRN Reason: Constipation Melatonin (Melatonin 3 Mg Tablet) 6 mg PO BEDTIME PRN PRN Reason: Insomnia Metoprolol Succinate (Metoprolol Succinate Er 50 Mg Tab.Er.24h) 50 mg PO DAILY [facility]; Protocol Last Admin: 05/30/24 10:53 Dose: 50 mg Non-Formulary Medication (Doxycycline Hyclate) 100 mg PO BID [facility] Non-Formulary Medication (Omalizumab [Xolair]) 300 mg SUBCUT Q4W [facility] Ondansetron HCl (Ondansetron Hcl 4 Mg/2 Ml Vial) 4 mg IVPUSH Q8H PRN PRN Reason: Nausea and Vomiting Prednisone (Prednisone 20 Mg Tablet) 20 mg PO BID [facility] Rivaroxaban (Rivaroxaban 20 Mg Tablet) 20 mg PO BEDTIME [facility] Last Admin: 05/29/24 22:54 Dose: 20 mg Sodium Chloride (0.9 % Sodium Chloride Flush 3 Ml Syringe) 3 ml IVFLUSH QSHIFT [facility] Last Admin: 05/30/24 07:06 Dose: Not Given Vitamin D (Cholecalciferol (Vitamin D3) 25 Mcg Tablet) 50 mcg PO DAILY [facility] Last Admin: 05/30/24 10:53 Dose: 50 mcg Home Medications ?Medication ?Instructions ?Recorded ?Confirmed ?Last Taken ?Type doxycycline hyclate 100 mg tablet 100 mg PO BID 05/29/24 05/29/24 Unknown History fluticasone 250 mcg-salmeterol 50 1 inh inhalation BID 05/29/24 05/29/24 05/29/24 History mcg/dose blistr powdr for inhalation (Advair Diskus) loratadine 10 mg tablet (Claritin) 10 mg PO DAILY PRN Allergy Symptoms 05/29/24 05/29/2405/29/25 History prednisone 20 mg tablet 20 mg PO BID 05/29/24 05/29/24 Unknown History rivaroxaban 20 mg tablet (Xarelto) 20 mg PO BEDTIME 05/29/24 05/29/24 05/29/24 History Physical Exam 2 Vital Signs: Vital Signs: Last Vital Signs Temp 98.0 F 05/30/24 08:43 Pulse 98 05/30/24 10:53 Resp 16 05/30/24 08:43 BP 134/71 05/30/24 10:53 Pulse Ox 93 05/30/24 08:43 O2 Del Method Room Air 05/30/24 08:43 BMI result Body Mass Index 51.9 Const: General: cooperative, comfortable, no acute distress, alert and awake Nutritional Appearance: obese morbidly obese Orientation/consciousness: p atient oriented x3 Limitations: no limitations HEENT: Head: Yes normocephalic and Yes atraumatic Neck: Neck: Yes trachea midline, Yes supple and Yes no JVD Resp: Effort & Inspection: normal respiratory effort Auscultation: clear to auscultation bilaterally Cardio: Jugular venous distension: no JVD Palpation: normal PMI Rate: r egular rate Rhythm: regular rhythm Heart sounds: S1 normal heart sound present, S2 normal heart sound present, no click, no gallops, no murmurs and no rubs GI: Auscultation: normal bowel sounds Skin: General skin exam: no rashes or lesions noted Neuro: General: patient oriented x3 and no focal motor deficits Extrem: General: Yes no clubbing, cyanosis or edema Objective Labs and Meds 05/30/24 03:44 05/30/24 03:44 Lab results: Laboratory Results - last 24 hr 05/29/24 05/29/24 05/30/24 15:33 21:40 03:44 WBC 14.7 H 11.9 H RBC 5.63 H 4.89 Hgb 15.5 13.6 Hct 45.9 39.9 MCV 81.5 81.6 MCH 27.5 27.8 MCHC 33.8 34.1 RDW 12.3 12.5 Plt Count 509 H D 397 MPV 9.4 9.2 L Immature Gran % (Auto) 0.5 H Neut % (Auto) 71.5 Lymph % (Auto) 16.6 L Vance % (Auto) 9.5 Eos % (Auto) 1.4 Baso % (Auto) 0.5 Lymph # (Auto) 2.4 Vance # (Auto) 1.4 H Eos # (Auto) 0.2 Baso # (Auto) 0.1 Abs Immat Gran (auto) 0.08 H Absolute Neuts (auto) 10.5 H Absolute Nucleated RBC 0.000 0.000 Nucleated RBC % (auto) 0.0 0.0 Hold Purple Top SEE NOTE PT 12.9 H INR 1.1 Sodium 137 139 Potassium 4.0 4.6 Chloride 102 104 Carbon Dioxide 20 L 24 Anion Gap 19 16 BUN 21 H 25 H Creatinine 1.43 H 1.55 H Estim Creat Clear Calc 59.8 55.1 Estimated GFR 37 34 Random Glucose 108 106 Lactic Acid 1.6 Uric Acid 11.1 H Calcium 9.6 9.2 Magnesium 1.9 Total Bilirubin 0.6 AST 23 ALT 25 Alkaline Phosphatase 109 Total Protein 8.2 H Albumin 4.3 TSH 1.14 Hold Yellow Top See Note Imaging Radiologist's impression: Impressions Chest X-Ray 05/29/24 16:20 IMPRESSION: Cardiac enlargement. No active disease. Electronically signed by: Jn Phillips MD 05/29/2024 04:39 PM [facility] [place] Assessment and Plan (1) Atrial fibrillation with rapid ventricular response: Status: Acute Recurrent atrial fibrillation with rapid ventricular response most likely caused by her acute medical illness with acute gout. Should be on some rate lowering medications. I would consider metoprolol unless considered contraindicated due to her asthma. Can switch to Cardizem at that point time. Continue Xarelto 20 mg daily for oral anticoagulation. Her left foot pain appears to be more related to gout rather than cellulitis and treatment will pursue along the same. Advise aggressive hydration orally. Follow-up renal functions were PCP's office in his future. Consider workup for sleep apnea. Aggressive weight loss program in the future to prevent recurrent atrial fibrillation. If she continues to have recurrent atrial fibrillation may require consideration for antiarrhythmic drug therapy and/or ablation. Most recent echocardiogram showed preserved LV ejection fraction with normal left atrial chamber size. Patient can be discharged home from cardiac perspective. Will follow-up as outpatient. Procedures Date of Service Date of Service: 05/30/24
--- NOTE | 2024-05-30 11:52 | MHC.CM.PN ---
Pt self-care, lives at home with her son who will transport her home at discharge. Pt has been using crutches to help her walk better due to infected foot. Pt educated on HCP, declined at this time. PCP: Kam SANDERSON
[2024-05-30] MEDS: Doxycycline Monohydrate 100 MG CAPSULE PO (12:12)
[2024-05-30] MEDS: Acetaminophen 325 MG TABLET 975 MG PO (12:13)
[2024-05-30] MEDS: Colchicine 0.6 MG TABLET 1.2 MG PO (12:13)
[2024-05-30] MEDS: predniSONE 20 MG TABLET PO (12:14)
--- NOTE | 2024-05-30 14:15 | P.DS_ITS ---
DS: Providers Provider Date of Service: 05/30/24 Date of admission: 05/29/24 19:38 Date of discharge: 05/30/24 Primary care physician: MICHAEL ZamoraPBisi Consults: 05/29/24 19:38 Consult to Cardiology Routine Consulting Provider: [facility] Reason for consultation: afib with rvr Has provider been notified: Yes Attending physician on discharge: Naeem Hidalgo Discharging clinician: Naeem Hidalgo DS: Diagnosis Discharge Diagnosis (1) Atrial fibrillation with rapid ventricular response: Status: Acute DS: Summary Hospital Course Hospital Course: HPI: 63-year-old female with pertinent history of hypertension, obesity, COPD not home oxygen, paroxysmal atrial fibrillation on Xarelto, left bundle branch block who presents to the emergency department for evaluation of tachycardia. Patient states she has been having left foot redness and pain that has been ongoing for the last 3 weeks. Initially the redness was limited to the toes but it has spread to the foot. Also has associated warmth and pain with ambulation. Patient went to urgent care today for evaluation and was noted to be in AFib with RVR and sent to the ER. Does admit poor p.o. intake especially liquids over the last few days. She denies palpitations or shortness of breath. No history of leg infection in the past. No fever, chills. No history of gout. No chest pain, abdominal pain, changes in urinary or bowel habits. In the emergency department, patient was found to be in AFib with RVR and initiated IV diltiazem drip. Also found to have CRISTINA with creatinine 1.43. Hospital course: 63-year-old female with pertinent history of hypertension, obesity, COPD not home oxygen, paroxysmal atrial fibrillation on Xarelto, left bundle branch block who presents to the emergency department for evaluation of tachycardia: Patient was started on Cardizem drip for AFib with RVR, has CRISTINA(due to poor ral intake and bp meds lisinopril/lasix)- given fluids in ed ,also uric acid is 11 : started on prednisone and also given antibiotics for mild superficial cellulitis . blood cultures( no growth sofar) pending but patient 's cellulitis seems improving,no fevers, leucocytosis also improving as well as its likely that this could be gout flare,patient will follow up blood cultures outaptient. For gout flare: Continue prednisone, stopped lasix. Discuss in detail about diet. With the above supportive care heart rate seems to be improved, patient was seen by Cardiology -AFib with RVR might be related to acute illness in the setting ofgout flare: Diltiazem stopped, recommended to start on Toprol 50 daily which is started. Unclear why patient is taking Lasix so stopped. Discussed with Pulmonary outpatient if further need of Lasix. In addition lisinopril stopped due to CRISTINA, blood pressure is in 100s and patient is started on Toprol, so currently monitor blood pressure at home, encouraged for p.o. hydration, hold lisinopril until BMP repeated out patiently with PCP - if needed for blood pressure and the renal function improves then can reintroduce lisinopril at a lower dose out patiently. plan: started on Toprol 50 daily. encouraged for p.o. hydration lisinopril/lasix stopped. complete ceftin/doxycyline and prednisone as prescribed. repeat BMP out patiently with PCP - if needed for blood pressure and the renal function improves then can reintroduce lisinopril at a lower dose out patiently. Unclear why patient is taking Lasix so stopped. Discussed with Pulmonary outpatient if further need of Lasix. Above management discussed with the patient detail length she understand and in agreement with the above plan, time spent 40 minute. Time Attestation Total time managing care of this patient today: 40 mintues. Discharge Coordination Time (in mins): 40 min Quality: Safe Use of Opioids Does Pt have an Active Cancer Diagnosis on the Problem List?: No Quality: Stroke Does the patient have a stroke diagnosis?: No Physical Exam Vital Signs: Vital Signs: Last Vital Signs Temp 98.0 F 05/30/24 08:43 Pulse 98 05/30/24 10:53 Resp 16 05/30/24 08:43 BP 134/71 05/30/24 10:53 Pulse Ox 93 05/30/24 08:43 O2 Del Method Room Air 05/30/24 08:43 BMI result Body Mass Index 51.9 Appearance: Alert.? Oriented X3.? not in distress.? cvs: rrr, [id number] . res: clear to auscultation ,no rhonchii or wheezing abd: no rebound or guarding ,nt, bs present. ext pulses present , no cyanosis. left foot -has some mimimum erythema near big toe and swelling neuro: axo3 , nonfocal. DS: Data Data Completed and Pending Labs on day of discharge: Laboratory Results - last 24 hr 05/29/24 05/29/24 05/30/24 15:33 21:40 03:44 WBC 14.7 H 11.9 H RBC 5.63 H 4.89 Hgb 15.5 13.6 Hct 45.9 39.9 MCV 81.5 81.6 MCH 27.5 27.8 MCHC 33.8 34.1 RDW 12.3 12.5 Plt Count 509 H D 397 MPV 9.4 9.2 L Immature Gran % (Auto) 0.5 H Neut % (Auto) 71.5 Lymph % (Auto) 16.6 L [place] % (Auto) 9.5 Eos % (Auto) 1.4 Baso % (Auto) 0.5 Lymph # (Auto) 2.4 [place] # (Auto) 1.4 H Eos # (Auto) 0.2 Baso # (Auto) 0.1 Abs Immat Gran (auto) 0.08 H Absolute Neuts (auto) 10.5 H Absolute Nucleated RBC 0.000 0.000 Nucleated RBC % (auto) 0.0 0.0 Hold Purple Top SEE NOTE PT 12.9 H INR 1.1 Sodium 137 139 Potassium 4.0 4.6 Chloride 102 104 Carbon Dioxide 20 L 24 Anion Gap 19 16 BUN 21 H 25 H Creatinine 1.43 H 1.55 H Estim Creat Clear Calc 59.8 55.1 Estimated GFR 37 34 Random Glucose 108 106 Lactic Acid 1.6 Uric Acid 11.1 H Calcium 9.6 9.2 Magnesium 1.9 Total Bilirubin 0.6 AST 23 ALT 25 Alkaline Phosphatase 109 Total Protein 8.2 H Albumin 4.3 TSH 1.14 Hold Yellow Top See Note Additional Comments Additional comments: foot xray:1. No acute findings cxr:IMPRESSION: Cardiac enlargement. No active disease. Discharge Plan Discharge Anticipated Discharge Date/Time: 05/30/24 13:54 Patient Disposition: Home, Self-Care Discharge Diagnosis: afib rvr, foot cellulitis ,cristina Referrals: Kam Jensen FNP-BC [Primary Care Provider] - 1 Week Discharge Medications: New metoprolol succinate 50 mg Tablet Extended Release 24 Hr 50 mg PO DAILY Qty: 90 0RF Protocol: Hold for SBP/HR < HOLD for SBP < : 90 HOLD for HR < : 60 cefuroxime axetil 500 mg Tablet 500 mg PO Q12H Qty: 14 0RF Continued (DME) nebulizers Misc See Rx Instructions .ROUTE .MEDSUPPLY Qty: 1 0RF Rx Instructions: use nebulizer every 6 hours as needed albuterol sulfate 90 mcg/actuation HFA aerosol inhaler 2 puff inhalation Q6H PRN (Reason: dyspnea) Qty: 1 6RF Xolair 150 mg recon soln 300 mg subcut Q4W 28 Days Qty: 2 12RF Rx Instructions: requires multiple injection sites; do not exceed 150 mg per injection site cholecalciferol (vitamin D3) 50 mcg (2,000 unit) capsule 50 mcg PO DAILY Qty: 90 2RF Xarelto 20 mg tablet 20 mg PO BEDTIME loratadine [Claritin] 10 mg Tablet 10 mg PO DAILY PRN (Reason: Allergy Symptoms) fluticasone propion-salmeterol [Advair Diskus] 250-50 mcg/dose blister with device 1 inh inhalation BID prednisone 20 mg tablet 20 mg PO BID Rx Instructions: patient has not started doxycycline hyclate 100 mg tablet 100 mg PO BID Rx Instructions: patient has not started yet albuterol sulfate 2.5 mg /3 mL (0.083 %) solution for nebulization 2.5 mg inhalation Q4H PRN (Reason: shortness of breath or wheezing) Qty: 180 6RF Discontinued furosemide 40 mg tablet 40 mg PO DAILY Qty: 90 1RF lisinopril 40 mg tablet 40 mg PO DAILY 90 Days Qty: 90 1RF Discharge Orders: Discharge Order (Routine); Ordered 05/30/24 Ordered By: Naeem Hidalgo Diet: Advance to usual diet Activity on Discharge: As tolerated Stand Alone Forms: Patient Portal Discharge page Print Language: [place] Other Ambulatory Orders: Basic Metabolic Panel (Routine) Timeframe: 1 Week Facility: [facility] - Location: Laboratory Ordered By: Naeem Hidalgo Care Plan Goals: 63-year-old female with pertinent history of hypertension, obesity, COPD not home oxygen, paroxysmal atrial fibrillation on Xarelto, left bundle branch block who presents to the emergency department for evaluation of tachycardia: Patient was started on Cardizem drip for AFib with RVR, has CRISTINA(due to poor ral intake and bp meds lisinopril/lasix)- given fluids in ed ,also uric acid is 11 : started on prednisone and also given antibiotics for mild superficial cellulitis . blood cultures( no growth sofar) pending but patient 's cellulitis seems improving,no fevers, leucocytosis also improving as well as its likely that this could be gout flare,patient will follow up blood cultures outaptient. With the above supportive care heart rate seems to be improved, patient was seen by Cardiology recommended to start on Toprol 50 daily. Unclear why patient is taking Lasix so stopped. Discussed with Pulmonary outpatient if further need of Lasix. In addition lisinopril stopped due to CRISTINA, blood pressure is in 100s and patient is started on Toprol, so currently monitor blood pressure at home, encouraged for p.o. hydration, hold lisinopril until BMP repeated out patiently with PCP - if needed for blood pressure and the renal function improves then can reintroduce lisinopril at a lower dose out patiently. plan: started on Toprol 50 daily. encouraged for p.o. hydration lisinopril/lasix stopped. complete ceftin/doxycyline and prednisone as prescribed. repeat BMP out patiently with PCP - if needed for blood pressure and the renal function improves then can reintroduce lisinopril at a lower dose out patiently. Unclear why patient is taking Lasix so stopped. Discussed with Pulmonary outpatient if further need of Lasix. Health Concerns: As above. Plan of Treatment: started on Toprol 50 daily. encouraged for p.o. hydration lisinopril/lasix stopped. complete ceftin/doxycyline and prednisone as prescribed. repeat BMP out patiently with PCP - if needed for blood pressure and the renal function improves then can reintroduce lisinopril at a lower dose out patiently. Unclear why patient is taking Lasix so stopped. Discussed with Pulmonary outpatient if further need of Lasix. Assessment: as above. Discharge Date/Time: 05/30/24 15:12
[2024-05-30] MEDS: cefuroxime axetiL 500 MG TABLET PO (14:43)
--- NOTE | 2024-05-30 15:23 | MHC.CM.PN ---
Pt is medically cleared for discharge home self-care, pts son will transport her home.
--- NOTE | 2024-06-20 11:30 | P.CDIM_ITS ---
PROVIDER RESPONSE TEXT: To clarify, the appropriate diagnosis supported by the clinical indicators: Sepsis is/was present and is a clinical diagnosis QUERY TEXT: PHYSICIAN'S DOCUMENTATION REQUEST Date of Query: 06/14/2024 07:41 AM EST Patient Name: Yanna Holt Admit Date: 05/30/2024 Dear Naeem Hidalgo MD, A review of the medical record indicates additional documentation may be needed. Please review below and update the documentation accordingly. Documentation on progress note dated 05/29/24 included the diagnosis of Sepsis. Sepsis is not noted in the Discharge Summary 05/30/24 The patient's infectious clinical indicators include: WBC 14.7 pulse 106 lactic acid 1.6 left foot redness, warmth and pain with ambulation Sepsis due to left foot nonpurulent cellulitis IV Cefazolin, IV crystalloids blood culture: no growth Recognized standard criteria for this condition and other infectious definitions includes: Bacteremia Abnormal laboratory test - does not indicate a clinically ill patient Sepsis Systemic manifestations of infection, with 2 or more SIRS criteria which include: Fever > 100.4?F or hypothermia < 96.8?F Leukocytosis - WBC > 12,000 or leukopenia, WBC < 4,000, or > 10% bands Tachycardia- > 90 beats/minute Tachypnea- RR > 20 breaths/minute or PaCO2 < 32mmHg Source: Merck Manual 2013 Documentation should include the known or suspected organism, and the underlying infection, such as U TI or pneumonia Severe Sepsis Sepsis with associated acute organ dysfunction, such as renal or respiratory failure Documentation should indicate the association between the sepsis and the organ dysfunction Septic Shock Severe sepsis with associated with circulatory failure, evidenced by hypotension and hypo perfusion Based on the above information and the recognized standard for sepsis, could you please clarify if th is diagnoses is still accurate and reflective of the patient's condition to ensure quality of the medical record. Sepsis is/was present and is a clinical diagnosis After study, Sepsis has been ruled out Other (explain) Clinically unable to determine (explain) Thank you, Susanna Mendez RN Use of terms such as suspected, likely, concern for, or probable (associated with a specific diagnosi s that is being evaluated, monitored, or treated as if it exists) are acceptable and can be coded in the inpatient se tting, when documented at the time of discharge. Please use your independent medical judgment in providing your response. THIS QUERY IS PART OF THE PERMANENT MEDICAL RECORD
== END 2024-05-30 15:12 | disposition home or self-care (01) | DRG 872 ==
LOC: HO.ED 18:09 → HO.EDOVER 19:49 → HO.IMC 05-30 07:27
PROVIDERS: Physician Assistant; Admitting Provider Student in an Organized Health Care Education/Training Program; Emergency Provider Emergency Medicine; PCP Nurse Practitioner Family; Visit Provider Internal Medicine
DX: A41.9 Sepsis, unspecified organism (principal); N17.9 Acute kidney failure, unspecified; L03.116 Cellulitis of left lower limb; Z68.43 Body mass index [BMI] 50.0-59.9, adult; M10.9 Gout, unspecified; I48.0 Paroxysmal atrial fibrillation; E66.01 Morbid (severe) obesity due to excess calories; J44.9 Chronic obstructive pulmonary disease, unspecified; Z87.891 Personal history of nicotine dependence; Z79.01 Long term (current) use of anticoagulants; Z79.51 Long term (current) use of inhaled steroids; Z79.899 Other long term (current) drug therapy
CPT/HCPCS: 36415; 71045; 73630; 80048; 80053; 83605; 83735; 84443; 84550; 85025; 85027; 85610; 87040; 93005; 94640; 99285; J0690

== ENCOUNTER → 2024-05-29 15:02 | Outpatient (BNV) | payer OTHER, SELFPAY | PROVIDERS: Admitting Provider Student in an Organized Health Care Education/Training Program; Emergency Provider Emergency Medicine; PCP Nurse Practitioner Family; Visit Provider Internal Medicine Cardiovascular Disease | DX: R94.31 Abnormal electrocardiogram [ECG] [EKG] (principal) | CPT/HCPCS: 93010 ==

== ENCOUNTER → 2024-05-29 16:10 | Outpatient (BNV) | payer OTHER, SELFPAY | PROVIDERS: Emergency Provider Emergency Medicine; PCP Nurse Practitioner Family; Visit Provider Radiology Diagnostic Radiology | DX: I51.7 Cardiomegaly (principal); M77.52 Other enthesopathy of left foot and ankle | CPT/HCPCS: 71045 ==

== ENCOUNTER → 2024-05-29 19:38 | Outpatient (BNV) | payer OTHER, SELFPAY | PROVIDERS: Admitting Provider Student in an Organized Health Care Education/Training Program; Emergency Provider Emergency Medicine; PCP Nurse Practitioner Family; Visit Provider Internal Medicine Cardiovascular Disease | DX: I48.91 Unspecified atrial fibrillation (principal) | CPT/HCPCS: 99222 ==

== ENCOUNTER → 2024-05-29 19:38 | Outpatient (BNV) | payer OTHER, SELFPAY | PROVIDERS: Admitting Provider Student in an Organized Health Care Education/Training Program; Emergency Provider Emergency Medicine; PCP Nurse Practitioner Family; Visit Provider Student in an Organized Health Care Education/Training Program | DX: I48.91 Unspecified atrial fibrillation (principal) | CPT/HCPCS: 99223; 99239 ==

== ENCOUNTER 2024-06-06 09:34 | Outpatient (REF) | payer OTHER, SELFPAY ==
--- OUTSIDE RECORDS SUMMARY | 2024-06-06 10:20 | XMS_ITS | Clinical Summary ---
Author Organization [address] [facility] Address [address] [place] [address] Phone Care Team Providers Care Medical Lead Name Role Phone Ike Bryson MD Primary Care Provider [phone] Allergies Active Allergy Reactions Criticality Noted Date [...] 1:30 PM EST Nutrition Bariatric Surgery - [place] [address] [facility] [address] [place] [address] Class 3 severe obesity without serious comorbidity with body mass index (BMI) of 50.0 to 59.9 in adult, unspecified obesity type (CMS/HCC) (Primary Dx) 03/09/2024 2:30 PM EST Office Visit Bariatric Surgery - [address] [phone] Nia Page PA Class 3 severe obesity [...] 10:00 AM EST Nutrition Bariatric Surgery - [address] [id number] [phone] Health Maintenance Due Date Last Done Comments Breast Cancer Screening 1960 DTaP,Tdap,and Td Vaccines (1 - Tdap) 07/17/1979 Cervical Cancer Screening: P ap Smear 1981 Pneumococcal Vaccine: 50+ Ye ars (1 of 1 - PCV) 2010 Zoster Vaccines (1 of 2) 2010 RSV Immunization Patients 60 + Years Old (1 - Risk 60-74 years 1-dose series) 2020 COVID-19 Vaccine (1 - 2023-2 5 season) 2023 Influenza Vaccine [...] patient's age to complete this topic Meningococcal B Vacine Aged Out No lo nger eligible based on patient's age to complete [...] complete this topic Insurance [employer] Care Teams Medical Lead Relationship Specialty Start Date End Date Ike Bryson MD [address] [place] [id number] PCP - General Internal Medicine 03/06/24
[2024-06-06 11:13] LABS: Anion Gap 17 (12-20); Blood Urea Nitrogen 23 mg/dL (9-16); Calcium 9.5 mg/dL (8.4-10.2); Carbon Dioxide 22 mmol/L (22-29); Chloride 108 mmol/L (96-108); Estimated Glomerular Filt Rate > 60; Glucose Random 93 mg/dL (60-115); Potassium 5.2 mmol/L (3.3-5.1); Sodium 142 mmol/L (135-145)
== END 2024-06-06 09:35 | disposition home or self-care (01) ==
LOC: HO.LAB 09:34
PROVIDERS: PCP Nurse Practitioner Family; Visit Provider Internal Medicine
DX: N17.9 Acute kidney failure, unspecified (principal)
CPT/HCPCS: 36415; 80048

== ENCOUNTER 2024-06-07 08:35 | Outpatient (AMB) | payer OTHER, SELFPAY ==
[2024-06-07 08:38] VITALS: BP 138/82; PULSE 84; O2SAT 98; BMI 53.0
--- NOTE | 2024-06-07 08:38 | A.OFFPC_ITS ---
Vital Signs 3 06/07/24 08:38 Height 5 ft 6 in Weight 328 lb 8 oz BMI 53.0 BP 138/82 Blood Pressure Location Rt brachial Position Sitting Pulse 84 Pulse Source Pulse Oximeter Pulse Oximetry (%) 98 Oxygen Delivery Method Room Air Intake Visit Reasons: HDF/hmc/infected L foot Allergies apixaban [From Eliquis] Allergy (Severe, Verified 06/07/24 08:38) Facial Swelling and rash Sulfa (Sulfonamide Antibiotics) Allergy (Unknown, Verified 06/07/24 08:38) cough sulfamethoxazole [From BACTRIM] Allergy (Unknown, Verified 06/07/24 08:38) COUGH trimethoprim [From BACTRIM] Allergy (Unknown, Verified 06/07/24 08:38) COUGH seasonal Allergy (Unknown, Uncoded 05/29/24 15:21) unknown Medication List - Last Reconciled 06/07/24 by Micaela Ramirez MD albuterol sulfate 90 mcg/actuation 2 puffs inhalation Q6H PRN albuterol sulfate 2.5 mg (3 mL) inhalation Q4H PRN cholecalciferol (vitamin D3) 50 mcg PO DAILY fluticasone propion-salmeterol 250-50 mcg/dose (Advair Diskus) 1 inh inhalation BID loratadine (Claritin) 10 mg PO DAILY PRN metoprolol succinate ER 50 mg See Protocol PO DAILY nebulizers use nebulizer every 6 hours as needed omalizumab (Xolair) 300 mg subcut Q4W 28 days rivaroxaban (Xarelto) 20 mg PO BEDTIME Tobacco use date assessed: 06/07/24 Dental Screening Dental Screen Date: 06/07/24 Did you have a dental visit in the last 12 months?: Yes Did you have a dental problem in the last 6 months where you did not have access to dental care?: No Was dental information given to patient?: Patient has dentist HPI HDF/hmc/infected L foot 2 HPI0 Details Patient is 63-year-old female with a history of hypertension, obesity, COPD, paroxysmal atrial fibrillation on Xarelto, left bundle branch block presented to emergency department for the evaluation of tachycardia Date of admission 05/29/2024 date of discharge 05/30/2024 She verbalized to having left foot redness and pain which has been going on for the past few days. She was evaluated in urgent care prior to arrival to emergency room In emergency room patient was found to be in AFib with RVR and Cardizem drip was initiated She was also found to be in CRISTINA with creatinine of 1.43 She had a cardiology consultation in the hospital Eventually Cardizem drip was stopped and she was started on Toprol 50 mg daily Lasix was stopped Lisinopril was stopped due to CRISTINA BMP need to be repeated, lisinopril will be on hold until BNP becomes normal and creatinine becomes normal Patient was encouraged to have p.o. hydration as she was dehydrated on arrival to emergency room most likely due to Lasix She was given script for Ceftin, doxycycline and prednisone Her other medications are Advair, Claritin, Xarelto, Xolair, vitamin-D Patient is seeing Dr. Louis polymer specialist, last visit was 03/31/2024 She has appointment coming up in June with him As well as echocardiogram appointment by Dr. Mercedes Patient had electrolyte test done today her creatinine is normal now BNP is missing I have ordered that she is to repeat labs again in 1 week Due to slight discomfort left foot remaining I have sent 5 days of prednisone TCM 2 TCM Information0 Date of Discharge 05/30/24 Discharged From [facility] Interactive Contact Date (Reference documentation from this date) 05/31/24 HPI Comments 2 History of Present Illness0 Details Date of admission/discharge: 05/29/2024, discharge 05/30/2024 Facility: [facility] Discharge 2/current location: Home Diagnosis/procedure: Cellulitis left foot, CRISTINA, atrial fibrillation New/DC medications: Ceftin, doxycycline, prednisone Changed medication/dozing: Lisinopril is on hold Pending labs/tests: BNP metabolic profile Call to patient: Date/time 05/31/2024 by nurse as part of TCM visit Outcome: Patient was reached Today's visit is in person How are you feeling? Much better Any pain or discomfort? Left foot has slight pain still when walking Do you have any questions about your condition or discharge instructions? No Were you able to get her medications filled? Yes Do you have any questions about your medications? No Were you able to schedule your follow-up appointments? Yes If home health was ordered, have they contacted you? None ordered Any outpatient services, if so, are you scheduled? Are there any additional resources like transportation you might need during your recovery? No, son lives with the patient and is able to driver license agent to appointments Educational needs/resources: None needed What support system do you have? Son is taking care of her [facility] Medical History Colon cancer screening declined Morbid obesity Myofascial pain syndrome Hypertension COPD (chronic obstructive pulmonary disease) Surgical History No pertinent past surgical history Family History Father HTN (hypertension) Mother HTN (hypertension) Brother Substance use disorder Social History Household Members: Children Housing: House Do you presently have visiting nurse or other home services: No Alcohol intake: never Patient Tobacco Use Status: Former Tobacco user Years Smoked: 20 +/- e-Cigarette/Vaping Use: Never Used Second Hand Smoke Exposure: No service: No Current occupational status: employed Current occupation: [employer] Current occupational exposures/hazards: No Cognitive needs: No Hearing needs: No Vision needs: No Questionnaire PHQ-9 Over the last 2 weeks, how often have you been bothered by any of the following problems? 1. Little interest or pleasure in doing things: not at all 2. Feeling down, depressed, or hopeless: not at all 3. Trouble falling or staying asleep, or sleeping too much: not at all 4. Feeling tired or having little energy: not at all 5. Poor appetite or overeating: not at all 6. Feeling bad about yourself - or that you are a failure or have let yourself or your family down: not at all 7. Trouble concentrating on things, such as reading the newspaper or watching television: not at all 8. Moving or speaking so slowly that other people could have noticed. Or the opposite - being so fidgety or restless that you have been moving around a lot more than usual: not at all 9. Thoughts that you would be better off or of hurting yourself in some way: not at all Total score: 0 Depression Screening Interpretation: Negative Depression Screening Done: Yes 33935 - PHQ-9 Billing: Yes Source: Developed by Drs. Flo Eddy, Phyllis Bonilla, Gregorio Tan and colleagues, with an educational yana from [employer]. Thrive Questionnaire Date Thrive assessed: 06/07/24 I am a: Patient What is your living situation today?: I have a steady place to live Within the past 12 months, did the food you bought not last and you didn't have the money to get more?: Often true Within the past 12 months, did you worry whether your food would run out before you got money to buy more?: I choose not to answer this question Do you have trouble paying for medicines?: I choose not to answer this question Do you have trouble getting transportation to medical appointments?: I choose not to answer this question Do you have trouble paying your heating and electricity bill?: I choose not to answer this question Do you have trouble taking care of your child, family member or friend?: I choose not to answer this question Do you have trouble with day-to-day activities such as bathing, preparing meals, shopping, managing finances, etc.?: I choose not to answer this question Are you currently unemployed and looking for a job?: I choose not to answer this question Are you interested in more education?: I choose not to answer this question Please select the resources that you would like help with: None Currently or been in a relationship where the following occur: No concerns reported THRIVE Score: 1 AUDIT C Alcohol Use Questionnaire (AUDIT-C) 1. How often do you have a drink containing alcohol?: Never 3. How often do you have six or more drinks on one occasion?: Never Total Score: 0 Score Reviewed/Action Taken: Yes IRVIN-7 AMB Questionnaire IRVIN-7 Date IRVIN - 7 assessed: 06/07/24 Feeling nervous, anxious, or on edge: 0 = Not at all Not being able to stop or control worryin = Not at all Worrying too much about different things: 0 = Not at all Trouble relaxin = Not at all Being so restless that it is hard to sit still: 0 = Not at all Becoming easily annoyed or irritable: 0 = Not at all Feeling afraid as if something awful might happen: 0 = Not at all Total IRVIN-7 score (0-4 normal; 5-9 mild; 10-14 moderate; 15-21 severe): 0 Source: Developed by Drs. Flo Eddy, Phyllis Bonilla, Gregorio Tan and colleagues, with an educational yana from [employer]. IRVIN-7 Assessment Billing IRVIN-7 Assessment Tool: IRVIN-7 Assessment 44356 Review of Systems Const Denies chills and Denies fever(s) ENT Denies epistaxis and Denies nasal discharge Card Denies chest pain Resp Denies chest congestion, Denies cough and Denies hemoptysis GI Denies diarrhea and Denies nausea Skin/Breast Denies rash Neuro Reports no additional complaints Psych Reports no additional complaints Endo Reports no additional complaints Physical exam (Primary Care) Vital Signs: Last Vital Signs Pulse 84 06/07/24 08:38 BP 138/82 06/07/24 08:38 Pulse Ox 98 06/07/24 08:38 Oxygen Delivery Method Room Air 06/07/24 08:38 BMI result Body Mass Index 53.0 Tobacco/Smoking Status: Tobacco use Status Tobacco use date assessed 06/07/24 06/07/24 08:41 Patient Tobacco Use Status Former Tobacco user 06/07/24 08:41 e-Cigarette/Vaping Use Never Used 06/07/24 08:41 PHQ-9: PHQ-9 Score PHQ-9: Total score 0 06/07/24 08:41 Depression Screening Interpretation: Negative Thrive Assessment: Date of Thrive Assessment Date Thrive assessed 06/07/24 06/07/24 08:41 Currently or been in a relationship where the following occur: No concerns reported Const General: cooperative, comfortable and no acute distress Orientation/consciousness: patient oriented x3 HENAK Head: Yes normocephalic Eyes General: appearance normal, both eyes and all related structures Neck Neck: Yes supple Resp Effort & Inspection: normal respiratory effort, no cough and no stridor Cardio Other: Heart rate is regular at this time Heart sounds: S1 normal heart sound present and S2 normal heart sound present Skin General skin exam: turgor normal Neuro General: patient oriented x3, tone normal and moves all extremities Extrem Right lower extremity: no edema Left lower extremity: no edema Ankle/foot/toe images: 2 1. Tender to pressure, no signs of erythema, able to all toes, neurovascular intact Coding Level of Care Code TCM High MDM <= 14 days Diagnoses Hospital discharge follow-up Z09 Acute kidney injury N17.9 Elevated brain natriuretic peptide (BNP) level R79.89 Atrial fibrillation with rapid ventricular response I48.91 Cellulitis of left foot L03.116 Asthma-COPD overlap syndrome J44.9 Additional Codes IRVIN-7 Assessment Billing - IRVIN-7 Assessment Tool: IRVIN-7 Assessment 01175 ([id number]) PHQ-9 - 42452 - PHQ-9 Billing: Yes ([id number]) Assessment & Plan Assessment & Plan (1) Hospital discharge follow-up: Code(s): Z09 - Encounter for follow-up examination after completed treatment for conditions other than malignant neoplasm Category: Medical (2) Acute kidney injury: Code(s): N17.9 - Acute kidney failure, unspecified Category: Medical (3) Elevated brain natriuretic peptide (BNP) level: Code(s): R79.89 - Other specified abnormal findings of blood chemistry Category: Medical (4) Atrial fibrillation with rapid ventricular response: Code(s): I48.91 - Unspecified atrial fibrillation Category: Medical (5) Cellulitis of left foot: Code(s): L03.116 - Cellulitis of left lower limb Category: Medical (6) Asthma-COPD overlap syndrome: Code(s): J44.9 - Chronic obstructive pulmonary disease, unspecified Category: Medical Plan Patient is 63-year-old female with a history of hypertension, obesity, COPD, paroxysmal atrial fibrillation on Xarelto, left bundle branch block presented to emergency department for the evaluation of tachycardia Date of admission 05/29/2024 date of discharge 05/30/2024 She verbalized to having left foot redness and pain which has been going on for the past few days. She was evaluated in urgent care prior to arrival to emergency room In emergency room patient was found to be in AFib with RVR and Cardizem drip was initiated She was also found to be in CRISTINA with creatinine of 1.43 She had a cardiology consultation in the hospital Eventually Cardizem drip was stopped and she was started on Toprol 50 mg daily Lasix was stopped Lisinopril was stopped due to CRISTINA BMP need to be repeated, lisinopril will be on hold until BNP becomes normal and creatinine becomes normal Patient was encouraged to have p.o. hydration as she was dehydrated on arrival to emergency room most likely due to Lasix She was given script for Ceftin, doxycycline and prednisone Her other medications are Advair, Claritin, Xarelto, Xolair, vitamin-D Patient is seeing Dr. Louis polymer specialist, last visit was 03/31/2024 She has appointment coming up in June with him As well as echocardiogram appointment by Dr. Mercedes Patient had electrolyte test done today her creatinine is normal now BNP is missing I have ordered that she is to repeat labs again in 1 week Due to slight discomfort left foot remaining I have sent 5 days of prednisone Orders: Orders 2 B Type Natriuretic Peptide 7 Days N17.9 - Acute kidney failure, unspecified, R79.89 - Other specified abnormal findings of blood chemistry Basic Metabolic Panel 7 Days N17.9 - Acute kidney failure, unspecified, R79.89 - Other specified abnormal findings of blood chemistry Medications: New 2 prednisone 20 mg PO DAILY 5 days 5 tabs 0RF
--- OUTSIDE RECORDS SUMMARY | 2024-06-07 08:40 | XMS_ITS | Clinical Summary ---
Author Organization 175 [facility] Address [address] [place] [address] Phone Care Team Providers Care Medical Office Manager Name Role Phone Ike Bryson MD Primary Care Provider [phone] Allergies Active Allergy Reactions Criticality Noted Date [...] 1:30 PM EST Nutrition Bariatric Surgery - [place] [address] [facility] [address] [place] [address] Class 3 severe obesity without serious comorbidity with body mass index (BMI) of 50.0 to 59.9 in adult, unspecified obesity type (CMS/HCC) (Primary Dx) 03/09/2024 2:30 PM EST Office Visit Bariatric Surgery - [address] [phone] Nia Page PA Class 3 severe obesity [...] 10:00 AM EST Nutrition Bariatric Surgery - [address] [phone] [phone] Health Maintenance Due Date Last Done Comments [...] this topic Insurance [employer] Care Teams Medical Office Manager Relationship Specialty Start Date End Date Ike Bryson MD [address] [place] [phone] PCP - General Internal Medicine 03/06/24
== END 2024-06-07 09:40 | disposition home or self-care (01) ==
PROVIDERS: PCP Nurse Practitioner Family; Visit Provider Internal Medicine
DX: I48.91 Unspecified atrial fibrillation (principal); N17.9 Acute kidney failure, unspecified; J44.9 Chronic obstructive pulmonary disease, unspecified; Z09 Encounter for follow-up examination after completed treatment for conditions other than malignant neoplasm; R79.89 Other specified abnormal findings of blood chemistry; L03.116 Cellulitis of left lower limb

== ENCOUNTER → 2024-06-07 08:35 | Outpatient (BNVA) | payer OTHER, SELFPAY | PROVIDERS: PCP Nurse Practitioner Family; Visit Provider Internal Medicine | DX: Z09 Encounter for follow-up examination after completed treatment for conditions other than malignant neoplasm (principal); N17.9 Acute kidney failure, unspecified; R79.89 Other specified abnormal findings of blood chemistry; L03.116 Cellulitis of left lower limb; J44.9 Chronic obstructive pulmonary disease, unspecified; I48.0 Paroxysmal atrial fibrillation; Z79.01 Long term (current) use of anticoagulants | CPT/HCPCS: 96127 ==

== ENCOUNTER 2024-06-16 09:20 | Outpatient (REF) | payer OTHER, SELFPAY ==
--- OUTSIDE RECORDS SUMMARY | 2024-06-16 10:04 | XMS_ITS | Clinical Summary ---
Author Organization 175 [facility] Address [address] [place] [address] Phone Care Team Providers Care Pharmacist Per Diem Name Role Phone Ike Bryson MD Primary Care Provider [phone] Allergies Active Allergy Reactions Criticality Noted Date [...] 1:30 PM EST Nutrition Bariatric Surgery - [place] [address] [facility] [address] [place] [address] Class 3 severe obesity without serious comorbidity with body mass index (BMI) of 50.0 to 59.9 in adult, unspecified obesity type (CMS/HCC) (Primary Dx) from Last 3 Months [...] 10:00 AM EST Nutrition Bariatric Surgery - [address] [phone] [address] Health Maintenance Due Date Last Done Comments [...] complete this topic Insurance [employer] Care Teams Pharmacist Per Diem Relationship Specialty Start Date End Date Ike Bryson MD [address] [place] [phone] PCP - General Internal Medicine 03/06/24
[2024-06-16 10:58] LABS: B Type Natriuretic Peptide 31 pg/mL (<100)
[2024-06-16 10:59] LABS: Anion Gap 13 (12-20); Blood Urea Nitrogen 27 mg/dL (9-16); Calcium 9.5 mg/dL (8.4-10.2); Carbon Dioxide 25 mmol/L (22-29); Chloride 104 mmol/L (96-108); Estimated Glomerular Filt Rate > 60; Glucose Random 92 mg/dL (60-115); Potassium 4.3 mmol/L (3.3-5.1); Sodium 138 mmol/L (135-145)
== END 2024-06-16 09:21 | disposition home or self-care (01) ==
LOC: HO.LAB 09:20
PROVIDERS: PCP Nurse Practitioner Family; Visit Provider Internal Medicine
DX: N17.9 Acute kidney failure, unspecified (principal); R79.89 Other specified abnormal findings of blood chemistry
CPT/HCPCS: 36415; 80048; 83880

== ENCOUNTER 2024-07-10 14:20 | Outpatient (AMB) | payer OTHER, SELFPAY ==
--- NOTE | 2024-07-10 14:34 | A.OFFVIS_ITS ---
Vital Signs 07/10/24 14:35 Height 5 ft 6 in Weight 330 lb 11.094 oz BMI 53.4 BP 130/70 Blood Pressure Location Lt radial Position Sitting Pulse 86 Pulse Source Pulse Oximeter Intake Visit Reasons: 4 mth s/p echo Intake Note: 4 mth f/up echo Information Technology Associate Required: No Accompanied by: Self / Same As Patient Allergies apixaban [From Eliquis] Allergy (Severe, Verified 06/07/24 08:38) Facial Swelling and rash Sulfa (Sulfonamide Antibiotics) Allergy (Unknown, Verified 06/07/24 08:38) cough sulfamethoxazole [From BACTRIM] Allergy (Unknown, Verified 06/07/24 08:38) COUGH trimethoprim [From BACTRIM] Allergy (Unknown, Verified 06/07/24 08:38) COUGH seasonal Allergy (Unknown, Uncoded 05/29/24 15:21) unknown Medication List - Last Reconciled 07/10/24 by Andrea Mercedes MD albuterol sulfate 90 mcg/actuation 2 puffs inhalation Q6H PRN albuterol sulfate 2.5 mg (3 mL) inhalation Q4H PRN cholecalciferol (vitamin D3) 50 mcg PO DAILY fluticasone propion-salmeterol 250-50 mcg/dose (Advair Diskus) 1 inh inhalation BID loratadine (Claritin) 10 mg PO DAILY PRN metoprolol succinate ER 50 mg See Protocol PO DAILY nebulizers use nebulizer every 6 hours as needed omalizumab (Xolair) 300 mg subcut Q4W 28 days rivaroxaban (Xarelto) 20 mg PO BEDTIME HPI Comments Details: 63-year-old female with background history of COPD, hypertension, obesity, left bundle-branch block and paroxysmal atrial fibrillation who is here for follow- up. She had 1 episode of paroxysmal atrial fibrillation many years ago which was a short episode. She was seen and had a cardiac event monitor which showed runs of atrial fibrillation more than 200 beats per minute. She was advised to start Eliquis at this stage given her stroke risk due to chads Vasc score of 2. She is back for follow-up. She is saying she did not get any significant symptoms other than mild fluttering that she felt in her neck for a short period time. 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 With the recent AFib episodes noticed on cardiac event monitor she did not have significant symptoms. She was started on Eliquis and diltiazem. It appears that the diltiazem was not covered by insurance. Today she returns for follow-up. She was previously started on Eliquis 5 mg twice a day. She said she started noticing some cramping on the right side of her chest and abdomen after taking 2nd dose of Eliquis. This is a very localized area on the right side of the chest. She said she start using Eliquis b.i.d. since then. She is just taking once a day. She has dyspnea due to lung disease and obesity. She also has sinus tachycardia and is saying that when she comes for doctor visits she has tachycardia due to anxiety. At home she has checked her heart rate and has never fast. She is going to keep a log of her heart rate. 02/16/24: She is here for follow-up. Denying any dictations. No discomfort. Continue To have off and on she will of breath. She is on Xolair for asthma. She has chronic left bundle-branch block. 07/10/2024: She returns for follow-up. Recent admission to [facility] when she presented with gout involving the left foot and AFib with RVR. AFib was self-limiting and she reverted back to sinus rhythm. It appears she had mild CRISTINA and Lasix was stopped. She is saying she is gaining a lot of weight and has some edema in the legs. She is asking about resuming the Lasix. She is also is being worked up by bariatric surgery for gastric sleeve. [facility] Medical History Colon cancer screening declined Morbid obesity Myofascial pain syndrome Hypertension COPD (chronic obstructive pulmonary disease) Surgical History No pertinent past surgical history Family History Father HTN (hypertension) Mother HTN (hypertension) Brother Substance use disorder Social History Household Members: Children Housing: House Do you presently have visiting nurse or other home services: No Alcohol intake: never Patient Tobacco Use Status: Former Tobacco user Years Smoked: 20 +/- e-Cigarette/Vaping Use: Never Used Second Hand Smoke Exposure: No service: No Current occupational status: employed Current occupation: [employer] Current occupational exposures/hazards: No Cognitive needs: No Hearing needs: No Vision needs: No Review of Systems Const Denies chills, Denies fatigue, Denies fever(s), Denies frequent falls, Denies weakness, Denies weight gain and Denies weight loss ENT Denies dizziness Card Denies chest pain, Denies leg edema, Denies lightheadedness, Denies palpitations, Denies dyspnea and Denies dyspnea on exertion Resp Denies cough, Denies dyspnea and Denies dyspnea on exertion GI Denies hematochezia Musc Denies abnormal gait, Denies muscle weakness, Denies numbness, Denies radiating pain into limb and Denies tingling Neuro Denies abnormal gait, Denies dizziness, Denies frequent falls, Denies numbness, Denies tingling and Denies weakness Endo Denies fatigue and Denies palpitations Physical Exam Vital Signs: Last Vital Signs Pulse 86 07/10/24 14:35 BP 130/70 07/10/24 14:35 BMI result Body Mass Index 53.4 GENERAL APPEARANCE: in no acute distress, pleasant. NECK: no carotid bruit, no jugular venous distention. SKIN: no suspicious lesions, warm and dry. HEART: no murmurs, regular rate and rhythm. LUNGS: clear to auscultation bilaterally. ABDOMEN: soft, nontender. EXTREMITIES: +1 edema. PERIPHERAL PULSES: equal. NEUROLOGIC: No gross deficits, AAO X 3 Assessment & Plan Assessment & Plan (1) Morbid obesity: Code(s): E66.01 - Morbid (severe) obesity due to excess calories Category: Medical (2) Hypertension: Code(s): I10 - Essential (primary) hypertension Category: Medical (3) LBBB (left bundle branch block): Code(s): I44.7 - Left bundle-branch block, unspecified Category: Medical (4) PAF (paroxysmal atrial fibrillation): Code(s): I48.0 - Paroxysmal atrial fibrillation Category: Medical Plan Pleasant 63 year female with morbid obesity who is being considered for bariatric surgery. She has background of left bundle-branch block with normal LV function by echocardiography. She also has paroxysmal atrial fibrillation. She is currently on rivaroxaban and metoprolol succinate 50 mg daily. Recent admission with gout and AFib. She reverted to sinus rhythm on her own. She is considering bariatric surgery. She is not high-risk for surgery. Metoprolol should not be discontinued in the perioperative period. Weight loss will help her with the risk of atrial fibrillation and we will also increase her success for ablation in future if required. She has peripheral edema and feels her legs are heavier than before. Lasix was held during the hospitalization. Resuming her Lasix for now. Thank you for allowing me to participate in the care of your patient. Please feel free to contact me if you have any questions. Coding Level of Care Code Est Pt Level 4 (08803) Diagnoses Morbid obesity E66.01 Hypertension I10 LBBB (left bundle branch block) I44.7 PAF (paroxysmal atrial fibrillation) I48.0
[2024-07-10 14:35] VITALS: BP 130/70; PULSE 86; BMI 53.4
== END 2024-07-10 15:52 | disposition home or self-care (01) ==
LOC: HO.HCS 14:21
PROVIDERS: PCP Nurse Practitioner Family; Visit Provider Internal Medicine Cardiovascular Disease
DX: E66.01 Morbid (severe) obesity due to excess calories (principal); I10 Essential (primary) hypertension; I44.7 Left bundle-branch block, unspecified; I48.0 Paroxysmal atrial fibrillation
CPT/HCPCS: 99214

== ENCOUNTER → 2024-07-10 14:20 | Outpatient (BNVA) | payer OTHER, SELFPAY | PROVIDERS: PCP Nurse Practitioner Family; Visit Provider Internal Medicine Cardiovascular Disease ==

== ENCOUNTER 2024-08-08 09:59 | Outpatient (REF) | payer OTHER, SELFPAY ==
--- OUTSIDE RECORDS SUMMARY | 2024-08-08 11:20 | XMS_ITS | Clinical Summary ---
Author Organization 175 [facility] Address [address] [place] [address] Phone Care Team Providers Care Sole Scraper Name Role Phone Unavailable Primary Care Provider Unavailabl e Allergies Active Allergy Reactions Criticality Noted Date [...] Encounters Date Type Department Care Team Description 06/19/2024 10:00 AM EST Nutrition Bariatric Surgery - [place] [address] [facility] [address] [place] [address] Class 3 severe obesity without serious comorbidity with body mass index (BMI) of 50.0 to 59.9 in adult, unspecified obesity type (CMS/HCC V24, CMS/HCC V28) (Primary Dx) from Last 3 Months Social [...] - Inhaled Oxygen Concentration - - Weight 146 kg (321 lb) 06/19/2024 9:56 AM EST Height 165.1 cm (5' 5 ) 03/09/2024 2:34 PM EST Body Mass Index 53.42 03/09/2024 2:34 PM EST Plan of Treatment Health Maintenance Due Date Last Done Comments Breast Cancer Screening 1960 DTaP,Tdap,and Td Vaccines (1 - Tdap) 07/17/1979 Cervical Cancer Screening: P ap Smear 1981 Pneumococcal Vaccine: 50+ Ye ars (1 of 1 - PCV) 2010 Zoster Vaccines (1 of 2) 2010 RSV Immunization Adult Patie nts (1 - Risk 60-74 years 1-dose series) 2020 COVID-19 Vaccine (1 - 2023-2 5 season) 2023 Cholesterol Screening (Lipid Panel) 02/04/2024 Colorectal Cancer Screening: Colonoscopy 02/04/2024 Depression Screening 02/04/2024 HIV Screening 02/04/2024 Hepatitis C Screening 02/04/2024 Social Influencers of Health Screening 02/04/2024 Influenza Vaccine (Season Ended) 2024 HIB Vaccines Aged Out No longer eligi [...] age to complete this topic Meningococcal B Vaccine Aged Out No l onger eligible based on patient's age to complete [...] patient's age to complete this topic Insurance [facility]
[2024-08-08 13:14] LABS: MANUAL DIFF FLAG NO
[2024-08-08 13:31] LABS: Basophils Absolute Auto 0.1 X10*3/uL (0.0-0.2); Basophils Percent Auto 0.8 % (0-2); Eosinophils Absolute Auto 0.3 X10*3/uL (0.0-0.4); Eosinophils Percent Auto 2.6 % (0-4); Hematocrit 47.4 % (37.0-47.0); Hemoglobin 15.5 g/dl (12.0-16.0); Imm Gran Abs Auto 0.06 X10*3/uL (0.00-0.03); Imm Gran Pct Auto 0.6 % (0.0-0.4); Lymphocytes Absolute Auto 2.1 X10*3/uL (1.2-4.9); Lymphocytes Percent Auto 19.6 % (20-40); Mean Corpuscular HGB Conc 32.7 g/dl (31.0-35.0); Mean Corpuscular Volume 82.4 fL (80.0-98.0); Mean Platelet Volume 9.9 fL (9.4-12.3); Monocytes Percent Auto 9.5 % (2-11); Neutrophils Absolute Auto 7.1 x10*3/uL (2.0-8.3); Neutrophils Percent Auto 66.9 % (45-73); Platelet Count 396 X10*3/uL (160-400); Red Blood Count 5.75 X10*6/uL (4.20-5.50); Red Cell Distribution Width 13.2 % (11.0-16.0); White Blood Count 10.6 X10*3/uL (4.8-10.8)
[2024-08-08 13:39] LABS: Appearance Urine Clear; Color Urine Yellow; Glucose Urine UA Negative (Negative); Leukocyte Esterase Urine Negative (Negative); Nitrite Urine Negative (Negative); UMIC TRIGGER UACC YES; Urine Blood Trace (Negative); Urine Ketones Negative (Negative); Urine Protein Negative (Neg-Trace)
[2024-08-08 13:47] LABS: Bacteria Urine None Seen (None Seen); Hyaline Casts Urine 0-2 /LPF (0-2); RBC Urine 0-2 /HPF (0-2); Squamous Epithelial Cell Urine 0-2 /HPF (0-2); WBC Urine 0-5 /HPF (0-5)
[2024-08-08 13:58] LABS: Alanine Aminotransferase 20 U/L (0-31); Alkaline Phosphatase 89 U/L (39-117); Anion Gap 14 (12-20); Aspartate Amino Transferase 27 U/L (5-31); Bilirubin Total 0.7 mg/dL (0.0-1.0); Blood Urea Nitrogen 15 mg/dL (9-16); Calcium 9.3 mg/dL (8.4-10.2); Carbon Dioxide 28 mmol/L (22-29); Chloride 102 mmol/L (96-108); Cholesterol 185 mg/dL (<200); Estimated Glomerular Filt Rate 58; Glucose Fasting 93 mg/dL (60-99); HDL Cholesterol 46 mg/dL (>40); LDL Cholesterol Calculated 104 mg/dL (<100); Potassium 4.6 mmol/L (3.3-5.1); Sodium 139 mmol/L (135-145); Total Protein 6.9 g/dL (6.5-8.0); Triglycerides 176 mg/dL (<150)
== END 2024-08-08 10:00 | disposition home or self-care (01) ==
LOC: HO.HMGCLDS 09:59
PROVIDERS: PCP Nurse Practitioner Family; Visit Provider Nurse Practitioner Family
DX: Z00.00 Encounter for general adult medical examination without abnormal findings (principal); E55.9 Vitamin D deficiency, unspecified; Z13.6 Encounter for screening for cardiovascular disorders
CPT/HCPCS: 36415; 80053; 80061; 81001; 82306; 84443; 85025

== ENCOUNTER 2024-08-09 10:04 | Outpatient (AMB) | payer OTHER, SELFPAY ==
[2024-08-09 10:11] VITALS: BP 138/98; PULSE 87; RESP 17; TEMP 36.7; O2SAT 97; BMI 52.9
--- NOTE | 2024-08-09 10:11 | MHC.PC.OV ---
Vital Signs 08/09/24 10:11 08/09/24 11:02 Height 5 ft 6 in Weight 328 lb BMI 52.9 BP 138/98 H 122/82 Blood Pressure Location Lt brachial Lt brachial Position Sitting Sitting Respiration 17 Pulse 87 Pulse Source Pulse Oximeter Temp 98.1 F Temp Source Oral Pulse Oximetry (%) 97 Oxygen Delivery Method Room Air Intake Visit Reasons: 6 months follow up Intake Note: Pt is here today for her 6mo. f/u Allergies apixaban [From Eliquis] Allergy (Severe, Verified 08/09/24 10:14) Facial Swelling and rash Sulfa (Sulfonamide Antibiotics) Allergy (Unknown, Verified 08/09/24 10:14) cough sulfamethoxazole [From BACTRIM] Allergy (Unknown, Verified 08/09/24 10:14) COUGH trimethoprim [From BACTRIM] Allergy (Unknown, Verified 08/09/24 10:14) COUGH seasonal Allergy (Unknown, Uncoded 08/09/24 10:14) unknown Medication List - Last Reconciled 08/09/24 by RONIT Ramirez albuterol sulfate 90 mcg/actuation 2 puffs inhalation Q6H PRN albuterol sulfate 2.5 mg (3 mL) inhalation Q4H PRN cholecalciferol (vitamin D3) 50 mcg PO DAILY fluticasone propion-salmeterol 250-50 mcg/dose (Advair Diskus) 1 inh inhalation BID loratadine (Claritin) 10 mg PO DAILY PRN metoprolol succinate ER 50 mg See Protocol PO DAILY nebulizers use nebulizer every 6 hours as needed omalizumab (Xolair) 300 mg subcut Q4W 28 days rivaroxaban (Xarelto) 20 mg PO BEDTIME Tobacco use date assessed: 08/09/24 Dental Screening Dental Screen Date: 08/09/24 Did you have a dental visit in the last 12 months?: No Did you have a dental problem in the last 6 months where you did not have access to dental care?: No Was dental information given to patient?: No HPI 6 months follow up HPI Details Chief Complaint The patient is here for a generalized follow-up including concerns about morbid obesity and management of her joint condition. History of Present Illness The patient is a 64-year-old female presenting with a generalized follow-up, primarily concerning her obesity and joint issues. In February, she suffered from a severe gout attack, which has improved, but currently, she requires a left total knee arthroplasty. Unfortunately, this procedure is dependent on her losing 30 to 45 pounds. Weight management is difficult, as insurance no longer covers the GLP-1 agonist previously effective for her. She also has diminished lung capacity and reports elevated blood pressure today from missing her medication. No acute symptoms such as chest pain or dizziness are reported at this time. nOTE: pt reports having a full work up by urology for micro-hematuria approx 2 years ago. Social History - Weight management is an ongoing concern due to her need for a total knee arthroplasty and recent changes in medication coverage. - The patient's nutritional intake and exercise level were not elaborated upon in the conversation but remain critical aspects of her social history related to weight management. - Family planning, housing, education, and employment were not discussed. Health Maintenance - Referral to a weight management program was discussed. - Healthy lifestyle discussions are likely needed but were not specifically addressed today. -mammogram pt due, pt is aware, cologuard due, pt is aware. Review of Systems - General: Denies any current complaints - Cardiovascular: Denies chest pain - Respiratory: Denies increased shortness of breath - Neurological: Denies headaches, blurred vision, dizziness Physical Exam General: Cooperative, healthy appearing, comfortable, no acute distress and well developed, morbidly obese Orientation: Patient oriented x3 Limitations: No limitations Head: Normal to inspection Ears: Hearing grossly normal bilaterally Nose: Normal external nose present Face and sinus: Normal facial exam Eyes: Appearance normal, both eyes and all related structures Neck: Normal visual inspection and Yes full ROM Respiratory: Diminished breath sounds but able to speak in complete sentences. Cardiovascular: Regular rate and rhythm. Normal S1 and S2 GI: Normal to inspection. Soft to palpation and nontender Skin: No rashes or lesions noted Neuro: Patient oriented x3 Extremities: Normal to inspection Results Plan The patient requires a weight management program referral to achieve necessary weight loss for a left total knee arthroplasty. Due to insurance not covering a GLP-1 agonist, alternative weight reduction strategies will be pursued. Consistent medication for blood pressure is advised, with regular monitoring to ensure stability. Moreover, lifestyle changes to improve lung capacity and emotional well-being are encouraged to support her health. Discussion Notes During our discussion, I emphasized the critical importance of weight loss for proceeding with the planned left total knee arthroplasty. We explored alternative strategies for weight management, given her morbid obesity, and the loss of insurance coverage for the GLP-1 agonist previously used. I highlighted the cardiovascular and mobility benefits of achieving the targeted weight reduction. Additionally, we addressed the elevated blood pressure noted today and stressed maintaining adherence to her medication regimen. The patient's lung capacity weakness was also reviewed, suggesting a need for continued lifestyle modifications to promote respiratory health. Risk discussions were primarily centered on the current limitations and potential benefits of the new management plan. Patient Instructions - Follow instructions for the weight management program for weight reduction. - Consider dietary and exercise changes to support weight loss goals. - Keep taking your blood pressure medication regularly. - Monitor your breathing, and alert if there are any changes. - Come back for follow-up if weight loss goals are not being met or for any new symptoms. [facility] Medical History Colon cancer screening declined Morbid obesity Myofascial pain syndrome Hypertension COPD (chronic obstructive pulmonary disease) Surgical History No pertinent past surgical history Family History Father HTN (hypertension) Mother HTN (hypertension) Brother Substance use disorder Social History Household Members: Children Housing: House Do you presently have visiting nurse or other home services: No Alcohol intake: never Patient Tobacco Use Status: Former Tobacco user Years Smoked: 20 +/- e-Cigarette/Vaping Use: Never Used Second Hand Smoke Exposure: No service: No Current occupational status: employed Current occupation: [employer] Current occupational exposures/hazards: No Cognitive needs: No Hearing needs: No Vision needs: No Questionnaire Thrive Questionnaire Date Thrive assessed: 06/07/24 I am a: Patient What is your living situation today?: I have a steady place to live Within the past 12 months, did the food you bought not last and you didn't have the money to get more?: Often true Within the past 12 months, did you worry whether your food would run out before you got money to buy more?: I choose not to answer this question Do you have trouble paying for medicines?: I choose not to answer this question Do you have trouble getting transportation to medical appointments?: I choose not to answer this question Do you have trouble paying your heating and electricity bill?: I choose not to answer this question Do you have trouble taking care of your child, family member or friend?: I choose not to answer this question Do you have trouble with day-to-day activities such as bathing, preparing meals, shopping, managing finances, etc.?: I choose not to answer this question Are you currently unemployed and looking for a job?: I choose not to answer this question Are you interested in more education?: I choose not to answer this question Please select the resources that you would like help with: None Currently or been in a relationship where the following occur: I choose not to answer THRIVE Score: 1 AUDIT C Alcohol Use Questionnaire (AUDIT-C) 1. How often do you have a drink containing alcohol?: Never Total Score: 0 IRVIN-7 AMB Questionnaire IRVIN-7 Date IRVIN - 7 assessed: 06/07/24 Feeling nervous, anxious, or on edge: 0 = Not at all Not being able to stop or control worryin = Not at all Worrying too much about different things: 0 = Not at all Trouble relaxin = Not at all Being so restless that it is hard to sit still: 0 = Not at all Becoming easily annoyed or irritable: 0 = Not at all Source: Developed by Drs. Flo Eddy, Phyllis Bonilla, Gregorio Tan and colleagues, with an educational yana from [employer]. Physical exam (Primary Care) Vital Signs: Last Vital Signs Temp 98.1 F 08/09/24 10:11 Pulse 87 08/09/24 10:11 Resp 17 08/09/24 10:11 BP 138/98 H 08/09/24 10:11 Pulse Ox 97 08/09/24 10:11 Oxygen Delivery Method Room Air 08/09/24 10:11 BMI result Body Mass Index 52.9 Tobacco/Smoking Status: Tobacco use Status Tobacco use date assessed 08/09/24 08/09/24 10:19 Patient Tobacco Use Status Former Tobacco user 08/09/24 10:13 e-Cigarette/Vaping Use Never Used 08/09/24 10:13 Thrive Assessment: Date of Thrive Assessment Date Thrive assessed 06/07/24 08/09/24 10:13 Currently or been in a relationship where the following occur: I choose not to answer Coding Level of Care Code Est Pt Level 3 (78144) Diagnoses Morbid obesity E66.01 Left knee pain M25.562 Hypertension I10 Assessment & Plan Assessment & Plan (1) Morbid obesity: Code(s): E66.01 - Morbid (severe) obesity due to excess calories Category: Medical (2) Left knee pain: Code(s): M25.562 - Pain in left knee Category: Medical (3) Hypertension: Code(s): I10 - Essential (primary) hypertension Category: Medical Plan . Orders: Orders Complete Blood Count Auto Diff Today E66.01 - Morbid (severe) obesity due to excess calories, M25.562 - Pain in left knee UA CC w/rflx Micro + Cult Today E66.01 - Morbid (severe) obesity due to excess calories, M25.562 - Pain in left knee Comprehensive [place]. Panel Fast Today E66.01 - Morbid (severe) obesity due to excess calories, M25.562 - Pain in left knee TSH reflex Free T4 Today E66.01 - Morbid (severe) obesity due to excess calories, M25.562 - Pain in left knee Lipid Panel Today E66.01 - Morbid (severe) obesity due to excess calories, M25.562 - Pain in left knee Referrals Medical Weight Management Referral E66.01 - Morbid (severe) obesity due to excess calories
[2024-08-09 11:02] VITALS: BP 122/82
--- OUTSIDE RECORDS SUMMARY | 2024-08-09 11:40 | XMS_ITS | Clinical Summary ---
Author Organization 175 [facility] Address [address] [place] [address] Phone Care Team Providers Care Medical Record Clerk Name Role Phone Unavailable Primary Care Provider [...] 10:00 AM EST Nutrition Bariatric Surgery - [place] [address] [facility] [address] [place] [address] Class 3 [...] patient's age to complete this topic Insurance COUNT INCLUDES THE [facility]
== END 2024-08-09 11:04 | disposition home or self-care (01) ==
LOC: HO.HMCC 10:05
PROVIDERS: PCP Nurse Practitioner Family; Visit Provider Nurse Practitioner Family
DX: M25.562 Pain in left knee (principal); E66.01 Morbid (severe) obesity due to excess calories; Z68.43 Body mass index [BMI] 50.0-59.9, adult; I10 Essential (primary) hypertension

== ENCOUNTER → 2024-08-09 10:04 | Outpatient (BNVA) | payer OTHER, SELFPAY | PROVIDERS: PCP Nurse Practitioner Family; Visit Provider Nurse Practitioner Family ==

== ENCOUNTER 2024-08-25 08:11 | Outpatient (AMB) | payer OTHER, SELFPAY ==
--- OUTSIDE RECORDS SUMMARY | 2024-08-25 08:13 | XMS_ITS | Clinical Summary ---
Author Organization 175 [facility] Address [address] [place] [address] Phone Care Team Providers Care Photoresist Printer Name Role Phone Unavailable Primary Care Provider [...] (BMI) of 50.0 to 59.9 in adult (CMS/HCC V24, CMS/HCC V28) 03/09/2024 Encounters Date Type Department Care Team Description 06/19/2024 10:00 AM EST Nutrition Bariatric Surgery - [place] [address] [facility] [address] [place] [address] Class 3 [...] patient's age to complete this topic Insurance [facility]
--- NOTE | 2024-08-25 08:35 | MHC.OFFVISWM ---
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[employer] [facility] Allergies apixaban [From Eliquis] Allergy (Severe, Verified 08/25/24 08:36) Facial Swelling and rash Sulfa (Sulfonamide Antibiotics) Allergy (Unknown, Verified 08/25/24 08:36) cough sulfamethoxazole [From BACTRIM] Allergy (Unknown, Verified 08/25/24 08:36) COUGH trimethoprim [From BACTRIM] Allergy (Unknown, Verified 08/25/24 08:36) COUGH seasonal Allergy (Unknown, Uncoded 08/25/24 08:36) unknown Medication List - Last Reconciled 08/25/24 by Raf Mcgrath MD albuterol sulfate 90 mcg/actuation 2 puffs inhalation Q6H PRN albuterol sulfate 2.5 mg (3 mL) inhalation Q4H PRN cholecalciferol (vitamin D3) 50 mcg PO DAILY fluticasone propion-salmeterol 250-50 mcg/dose (Advair Diskus) 1 inh inhalation BID loratadine (Claritin) 10 mg PO DAILY PRN metoprolol succinate ER 50 mg See Protocol PO DAILY nebulizers use nebulizer every 6 hours as needed omalizumab (Xolair) 300 mg subcut Q4W 28 days rivaroxaban (Xarelto) 20 mg PO BEDTIME HPI 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 [facility]: Details: Start time: 8.30am, End time: 9.15am ?I spent 40 minutes speaking with the patient on the phone plus an additional 5 minutes reviewing and updating records for a total of 45 minutes HPI Comments Details: Previous weight loss efforts: none Wakes up: 7am, Sleeps: 11pm Breakfast: skips Lunch: 11.30am (cheese crackers, Barbadian, Bagel with cream cheese) Dinner: 5pm (meatballs, pasta, sandwich, soups) Snacks: 9am (toast and peanut butter, crackers), 3pm (candy, M&M), occasionally popcorn at night Exercise: will buy a treadmill Beverages: Coffee: (2 cups/day with cream and sugar), tea: (crystal light Iced tea), soda: none, juice: none, ETOH: none PFSH Medical History Colon cancer screening declined Morbid obesity Myofascial pain syndrome Hypertension COPD (chronic obstructive pulmonary disease) Surgical History No pertinent past surgical history Family History Father HTN (hypertension) Mother HTN (hypertension) Brother Substance use disorder Social History Household Members: Children Housing: House Do you presently have visiting nurse or other home services: No Alcohol intake: never Patient Tobacco Use Status: Former Tobacco user Years Smoked: 20 +/- e-Cigarette/Vaping Use: Never Used Second Hand Smoke Exposure: No service: No Current occupational status: employed Current occupation: [employer] Current occupational exposures/hazards: No Cognitive needs: No Hearing needs: No Vision needs: No Telehealth Telehealth Telehealth Platform: Telephone Location of provider rendering services: practice address Location of patient: address on file Patient Identification confirmed using: Name, : Yes Telehealth method: voice only Patient verbally consented to treatment: Yes Patient verbally consented to billing insurance company: Yes Patient informed of any privacy concerns related to visit: Yes Minutes spent on Phone/Video with Pt.: 45 Assessment & Plan Assessment & Plan (1) Morbid obesity: Code(s): E66.01 - Morbid (severe) obesity due to excess calories Category: Medical Plan: 1.? Plan for lap sleeve gastrectomy. If diaphragmatic or ventral hernias are present at time of surgery, these will be repaired laparoscopically as well. I emphasized the importance of close follow-up, adherence to instructions and good communication. The surgery does not replace the need to change your lifestlyle which is the cause of the obesity problem. The surgery provides the motivation to try again to change your lifestyle, it reduces the appetite and make the transition to a better lifestyle easier and doubles the amount of weight you would lose compared to doing the lifestyle change without the surgery. You will need to be on a liquid diet with protein shakes for 2 weeks before surgery to maximize weight loss and boost your nutritional status to recover better from surgery and also for the first two weeks after surgery to let the stomach heal before we introduce other foods. After the first 2 weeks we will introduce protein bars and soft foods like scrambled eggs, cottage cheese and yogurt and after the 6th week will introduce meat, fish and cooked vegetables in small amounts. Over time you should be able to eat everything in small amounts. Side effects like nausea, vomiting, heartburn or abdominal pain are not common in the practice unless you are not following in the practice. This operation requires lifetime commitment to following in our practice and communication with me. You will much less weight and experience side effects if you don?t communicate or not following in the practice. Complications are rare and in our practice is about 1/10 of the national average. However, you can develop bleeding that may require transfusion (hasn?t happened for year in the practice), you may from complications (we did not have any deaths in the practice) and infections. Infections are usually a result of breakdown in communication or not understanding or following directions correctly. They are difficult to treat, they can happen during the first 6 weeks, they may require to be in the hospital for weeks or even months, not being able to eat by mouth and you may have drains and surgeries to try and correct the issue. Other risks and complications include possible conversion to an open procedure, leaks, small bowel obstruction, blood clots, cardiac, or pulmonary complications, as skilled nursing complications such as ulcers, insufficient weight loss and vitamin deficiencies. 2.? Nutritional counseling. Start with one Garden of Life premade protein shake at 8am-10am, 1 Fit Crunch protein bar (buy at [employer]) at 11am-1pm, another Garden of Life protein shake at 2pm-4pm, dinner at 5pm (12 forks of protein and 12 forks of salad/vegetables), another Fit Crunch protein bar after dinner at 7pm-9pm. If hungry, please have another half protein bar at 10pm-11pm. So you do 2 protein shakes, 2 to 2.5 protein bars and one meal per day. Meal to include lean meat (beef, fish, pork, turkey, chicken), or tajik yogurt, or egg whites, or beans with a salad with olive oil and fruits (berries, pears, apples, kiwi). Avoid salt, breads, potatoes, rice, pasta, desserts. 3. Each shake would be drunk slowly, like coffee in a period of 2 hours. 4. Cut each bar in 4 pieces and eat each piece in 30min ?to make each bar last 2 hours. 5. I emphasized the importance of measuring accurately the food portion and measure it when serving the food in plate 6. The meal portions include 12 full-size forks of meat and 12 full-size forks of salad. You always eat the meat portion but you can replace up to 6 forks for salad/vegetables with rice, potatoes or pasta, or a fruit ?if you like. The less you do it the better weight loss will be. 7. One full-size fork is what it can be scooped on the fork without falling aside and not what can be bit with the fork. Use regular forks like those you find in a typical restaurant. 8.? Please buy the body composition scale we discussed and send me weight measurements as soon as possible and then once a week. Always include your diet and exercise plan. 9. Start treadmill with an incline of 0.0 and speed of 2.5. Increase incline by 1 every 3 min to a max incline of 6.0, stay 3min at 6.0 and then return to 0.0 and repeat same steps until calorie goal is met. Goal is to burn 2000 calories per week on exercise, which means either 300 calories daily. 10. Goal is to lose at least 1.5-2lbs per week 11. Goal to lose 10% of your weight before surgery, which is about 32lbs. Ultimate weight goal: 290lbs before surgery 12. Please follow the diet plan exactly without any change. If you don't like something about the plan or you feel hungry you need to communicate with me so I can help you revise the plan. You should not change the plan yourself 13. To be scheduled for EGD to assess the stomach's anatomy. The possibility of biopsies was discussed. Patient needs to avoid use of NSAIDs and aspirin for 1 week prior to EGD. You must be on liquids only the day before your endoscopy. Risks of perforation and bleeding was discussed with the patient. This will be an outpatient procedure with IV sedation. Orders: Orders Hemoglobin A1c Today E66.01 - Morbid (severe) obesity due to excess calories, I10 - Essential (primary) hypertension, I44.7 - Left bundle-branch block, unspecified, I48.0 - Paroxysmal atrial fibrillation, I48.91 - Unspecified atrial fibrillation H Pylori Breath Test Today E66.01 - Morbid (severe) obesity due to excess calories, I10 - Essential (primary) hypertension, I44.7 - Left bundle-branch block, unspecified, I48.0 - Paroxysmal atrial fibrillation, I48.91 - Unspecified atrial fibrillation Complete Blood Count Auto Diff Today E66.01 - Morbid (severe) obesity due to excess calories, I10 - Essential (primary) hypertension, I44.7 - Left bundle-branch block, unspecified, I48.0 - Paroxysmal atrial fibrillation, I48.91 - Unspecified atrial fibrillation Comprehensive Met. Panel Today E66.01 - Morbid (severe) obesity due to excess calories, I10 - Essential (primary) hypertension, I44.7 - Left bundle-branch block, unspecified, I48.0 - Paroxysmal atrial fibrillation, I48.91 - Unspecified atrial fibrillation Zinc Today E66.01 - Morbid (severe) obesity due to excess calories, I10 - Essential (primary) hypertension, I44.7 - Left bundle-branch block, unspecified, I48.0 - Paroxysmal atrial fibrillation, I48.91 - Unspecified atrial fibrillation Vitamin B1 Today E66.01 - Morbid (severe) obesity due to excess calories, I10 - Essential (primary) hypertension, I44.7 - Left bundle-branch block, unspecified, I48.0 - Paroxysmal atrial fibrillation, I48.91 - Unspecified atrial fibrillation Vitamin D 25-OH Total Today E66.01 - Morbid (severe) obesity due to excess calories, I10 - Essential (primary) hypertension, I44.7 - Left bundle-branch block, unspecified, I48.0 - Paroxysmal atrial fibrillation, I48.91 - Unspecified atrial fibrillation US abdomen comp w elastography Today E66.01 - Morbid (severe) obesity due to excess calories, I10 - Essential (primary) hypertension, I44.7 - Left bundle-branch block, unspecified, I48.0 - Paroxysmal atrial fibrillation, I48.91 - Unspecified atrial fibrillation Insulin Today E66.01 - Morbid (severe) obesity due to excess calories, I10 - Essential (primary) hypertension, I44.7 - Left bundle-branch block, unspecified, I48.0 - Paroxysmal atrial fibrillation, I48.91 - Unspecified atrial fibrillation Lipid Panel Today E66.01 - Morbid (severe) obesity due to excess calories, I10 - Essential (primary) hypertension, I44.7 - Left bundle-branch block, unspecified, I48.0 - Paroxysmal atrial fibrillation, I48.91 - Unspecified atrial fibrillation IRON PROFILE Today E66.01 - Morbid (severe) obesity due to excess calories, I10 - Essential (primary) hypertension, I44.7 - Left bundle-branch block, unspecified, I48.0 - Paroxysmal atrial fibrillation, I48.91 - Unspecified atrial fibrillation Vitamin B12 and Folate Today E66.01 - Morbid (severe) obesity due to excess calories, I10 - Essential (primary) hypertension, I44.7 - Left bundle-branch block, unspecified, I48.0 - Paroxysmal atrial fibrillation, I48.91 - Unspecified atrial fibrillation C Reactive Protein Today E66.01 - Morbid (severe) obesity due to excess calories, I10 - Essential (primary) hypertension, I44.7 - Left bundle-branch block, unspecified, I48.0 - Paroxysmal atrial fibrillation, I48.91 - Unspecified atrial fibrillation Vitamin A Today E66.01 - Morbid (severe) obesity due to excess calories, I10 - Essential (primary) hypertension, I44.7 - Left bundle-branch block, unspecified, I48.0 - Paroxysmal atrial fibrillation, I48.91 - Unspecified atrial fibrillation TSH reflex Free T4 Today E66.01 - Morbid (severe) obesity due to excess calories, I10 - Essential (primary) hypertension, I44.7 - Left bundle-branch block, unspecified, I48.0 - Paroxysmal atrial fibrillation, I48.91 - Unspecified atrial fibrillation Ferritin Today E66.01 - Morbid (severe) obesity due to excess calories, I10 - Essential (primary) hypertension, I44.7 - Left bundle-branch block, unspecified, I48.0 - Paroxysmal atrial fibrillation, I48.91 - Unspecified atrial fibrillation XR chest 2V Today E66.01 - Morbid (severe) obesity due to excess calories, I10 - Essential (primary) hypertension, I44.7 - Left bundle-branch block, unspecified, I48.0 - Paroxysmal atrial fibrillation, I48.91 - Unspecified atrial fibrillation ECG 12 lead EKG Today E66.01 - Morbid (severe) obesity due to excess calories, I10 - Essential (primary) hypertension, I44.7 - Left bundle-branch block, unspecified, I48.0 - Paroxysmal atrial fibrillation, I48.91 - Unspecified atrial fibrillation FL upper GI w air Today E66.01 - Morbid (severe) obesity due to excess calories, I10 - Essential (primary) hypertension, I44.7 - Left bundle-branch block, unspecified, I48.0 - Paroxysmal atrial fibrillation, I48.91 - Unspecified atrial fibrillation Referrals Behavioral Health Referral E66.01 - Morbid (severe) obesity due to excess calories, I10 - Essential (primary) hypertension, I44.7 - Left bundle-branch block, unspecified, I48.0 - Paroxysmal atrial fibrillation, I48.91 - Unspecified atrial fibrillation Nutrition/Dietitian Referral E66.01 - Morbid (severe) obesity due to excess calories, I10 - Essential (primary) hypertension, I44.7 - Left bundle-branch block, unspecified, I48.0 - Paroxysmal atrial fibrillation, I48.91 - Unspecified atrial fibrillation Medications: New tirzepatide (weight loss) (Zepbound) for 4 weeks 2.5 mg (0.5 mL) subcut QWEEK 2 mL 0RF E66.01 - Morbid (severe) obesity due to excess calories
[2024-08-25 08:50] VITALS: BMI 53.6
== END 2024-08-25 09:16 | disposition home or self-care (01) ==
LOC: HO.HBS 08:11
PROVIDERS: PCP Nurse Practitioner Family; Visit Provider Surgery
DX: E66.01 Morbid (severe) obesity due to excess calories (principal); Z68.43 Body mass index [BMI] 50.0-59.9, adult
CPT/HCPCS: 98010

== ENCOUNTER 2024-09-25 15:21 | Outpatient (AMB) | payer OTHER, SELFPAY ==
--- NOTE | 2024-09-25 15:23 | AM.OFFWIN_ITS ---
Intake Vital Signs 3 09/25/24 15:25 Height 5 ft 6 in Weight 317 lb BMI 51.2 BP 140/92 H Blood Pressure Location Lt brachial Position Sitting Pulse 78 Pulse Source Pulse Oximeter Temp 98.3 F Temp Source Oral Oxygen Flow Rate 95 Intake Visit Reasons: EP-lt foot infection Intake Note: Pt has right leg swollen, painful almost unable to walk started 3 dats ago. She had similar symptoms on left leg and it was a leg infection. Patient Tobacco Use Status: Former Tobacco user Allergies apixaban [From Eliquis] Allergy (Severe, Verified 09/25/24 15:28) Facial Swelling and rash Sulfa (Sulfonamide Antibiotics) Allergy (Unknown, Verified 09/25/24 15:28) cough sulfamethoxazole [From BACTRIM] Allergy (Unknown, Verified 09/25/24 15:28) COUGH trimethoprim [From BACTRIM] Allergy (Unknown, Verified 09/25/24 15:28) COUGH seasonal Allergy (Unknown, Uncoded 08/25/24 08:36) unknown HPI HPI Comments 2 History of Present Illness0 Details 64 y/o Female patient who [facility] with c/o right lower leg swelling, and painful almost unable to walk on it for 3 days now. Denies any recent injury or trauma. She was admitted at [facility] back in May 2024 for Afib, Left Foot Mild Cellulitis and Gout Flare left foot. She was treated with Abx and Prednisone. Pt believes the Zepbound weight loss medication caused the previous symptoms. She had stopped using it back in 05/2024 - and recently just restarted taking it. Pt has since stopped taking Zepbound. Pt is taking Xarelto for Afib - low chance for DVT. [facility] Medical History (Updated 09/25/24 @ 16:03 by Mirna Sanchez NP) Cellulitis of skin Right foot pain Colon cancer screening declined Morbid obesity Myofascial pain syndrome Hypertension COPD (chronic obstructive pulmonary disease) Surgical History No pertinent past surgical history Family History Father HTN (hypertension) Mother HTN (hypertension) Brother Substance use disorder Social History Household Members: Children Housing: House Do you presently have visiting nurse or other home services: No Alcohol intake: never Patient Tobacco Use Status: Former Tobacco user Years Smoked: 20 +/- e-Cigarette/Vaping Use: Never Used Second Hand Smoke Exposure: No service: No Current occupational status: employed Current occupation: [employer] Current occupational exposures/hazards: No Cognitive needs: No Hearing needs: No Vision needs: No Review of Systems Const All systems reviewed & are unremarkable except as noted in HPI and below Physical Exam Vital Signs: Last Vital Signs Temp 98.3 F 09/25/24 15:25 Pulse 78 09/25/24 15:25 BP 140/92 H 09/25/24 15:25 Oxygen Flow Rate 95 09/25/24 15:25 BMI result Body Mass Index 51.2 Const General: no acute distress Nutritional Appearance: obese morbidly obese Orientation/consciousness: patient oriented x3 Resp Effort & Inspection: normal respiratory effort Auscultation: clear to auscultation bilaterally Cardio Heart sounds: S1 normal heart sound present and S2 normal heart sound present Neuro General: patient oriented x3 Extrem Right lower extremity: foot Details: normal capillary refill, tenderness (The whole Foot), toes with normal ROM, warmth and edema Location: diffusely Ankle/foot/toe images: 2 1. Mild Redness, swelling, warmth and TTP Assessment & Plan Assessment & Plan (1) Right foot pain: Code(s): M79.671 - Pain in right foot Plan: Ordered Xray Foot to r/o Fracture. ?? Gout Flare up, ordered Prednisone Low chance for DVT - currently on Xarelto. (2) Cellulitis of skin: Code(s): L03.90 - Cellulitis, unspecified Plan: Mild Cellulitis - ordered Cefuroxime for 5 days. Acetaminophen for pain relief. Medications: New 2 prednisone 20 mg PO DAILY 10 tabs 0RF M79.671 - Pain in right foot cefuroxime axetil 500 mg PO BID 10 tabs 0RF 5 days L03.90 - Cellulitis, unspecified Coding Level of Care Code Est Pt Level 4 (99029) Diagnoses Right foot pain M79.671 Cellulitis of skin L03.90 Time Spent (min) 20
[2024-09-25 15:25] VITALS: BP 140/92; PULSE 78; TEMP 36.8; BMI 51.2
--- OUTSIDE RECORDS SUMMARY | 2024-09-25 17:04 | XMS_ITS | Clinical Summary ---
Author Organization [address] [facility] Address [address] [place] [address] Phone Care Team Providers Care [place] Name Role Phone Unavailable Primary Care Provider [...] in adult (CMS/HCC V24, CMS/HCC V28) 03/09/2024 Social History Tobacco Use Types Packs/Day Years [...] Vaccine ( - 2023-2 5 season) 2023 Cholesterol Screening [...] patient's age to complete this topic Insurance [facility], [facility]
== END 2024-09-25 16:13 | disposition home or self-care (01) ==
PROVIDERS: PCP Nurse Practitioner Family; Visit Provider Nurse Practitioner Family
DX: M79.671 Pain in right foot (principal); L03.90 Cellulitis, unspecified

== ENCOUNTER 2024-09-25 15:21 | Outpatient (REF) | payer OTHER, SELFPAY ==
--- NOTE | ~2024-09-25 | XR_ITS ---
EXAMINATION: XR FOOT, RIGHT CLINICAL INFORMATION: M79.671 - Pain in right foot , swelling for 3 days COMPARISON: None available. TECHNIQUE: AP, lateral, and oblique views of the right foot. FINDINGS: Dorsal osteophytes are present in the midfoot. There is a large calcaneal enthesophyte at the plantar fascial attachment. No fracture lines are identified. There is no joint malalignment or diastases. XR/XR foot RT min 3V IMPRESSION: There are degenerative changes in the dorsal midfoot. There is a large calcaneal spur which is an nonspecific finding. Correlate for signs and symptoms of plantar fasciitis. Electronically signed by: Jefe Cuadra MD 09/25/2024 04:38 PM EDT
== END 2024-09-25 15:22 | disposition home or self-care (01) ==
LOC: HO.HMGCX 15:21
PROVIDERS: PCP Nurse Practitioner Family; Visit Provider Physician Assistant Medical
DX: M79.671 Pain in right foot (principal)
CPT/HCPCS: 73630

== ENCOUNTER → 2024-09-25 16:06 | Outpatient (BNV) | payer OTHER, SELFPAY | PROVIDERS: PCP Nurse Practitioner Family; Visit Provider Radiology Diagnostic Radiology | DX: M19.071 Primary osteoarthritis, right ankle and foot (principal); M77.31 Calcaneal spur, right foot | CPT/HCPCS: 73630 ==

== ENCOUNTER 2025-03-30 08:13 | Outpatient (REF) | payer OTHER, SELFPAY ==
[2025-03-30 10:11] LABS: MANUAL DIFF FLAG NO
[2025-03-30 10:20] LABS: Hematocrit 48.0 % (37.0-47.0); Hemoglobin 16.1 g/dl (12.0-16.0); Imm Gran Abs Auto 0.04 X10*3/uL (0.00-0.03); Imm Gran Pct Auto 0.5 % (0.0-0.4); Lymphocytes Absolute Auto 2.0 X10*3/uL (1.2-4.9); Mean Corpuscular HGB Conc 33.5 g/dl (31.0-35.0); Mean Corpuscular Hemoglobin 26.8 pg (27.0-33.0); Mean Corpuscular Volume 80.0 fL (80.0-98.0); NRBC Abs Auto 0.000 X10*3/uL (0.0-0.012); NRBC Pct Auto 0.0 /100WBC (0.0-0.2); Platelet Count 416 X10*3/uL (160-400); Red Blood Count 6.00 X10*6/uL (4.20-5.50); White Blood Count 8.7 X10*3/uL (4.8-10.8)
[2025-03-30 10:53] LABS: Appearance Urine Cloudy; Glucose Urine UA Negative (Negative); PH 6.0 (5.0-9.0); Specific Gravity - Urine 1.015 (1.005-1.025); UMIC TRIGGER UACC YES
[2025-03-30 11:00] LABS: Alanine Aminotransferase 23 U/L (0-31); Albumin Level 4.4 g/dL (3.5-5.0); Alkaline Phosphatase 92 U/L (39-117); Anion Gap 16 (12-20); Aspartate Amino Transferase 24 U/L (5-31); Blood Urea Nitrogen 16 mg/dL (9-16); Calcium 9.5 mg/dL (8.4-10.2); Carbon Dioxide 25 mmol/L (22-29); Chloride 103 mmol/L (96-108); Cholesterol 176 mg/dL (<200); Estimated Glomerular Filt Rate > 60; HDL Cholesterol 45 mg/dL (>40); Potassium 3.7 mmol/L (3.3-5.1); Sodium 140 mmol/L (135-145); Total Protein 7.2 g/dL (6.5-8.0); Triglycerides 132 mg/dL (<150)
== END 2025-03-30 08:14 | disposition home or self-care (01) ==
LOC: HO.HMGCLDS 08:13
PROVIDERS: PCP Nurse Practitioner Family; Visit Provider Nurse Practitioner Family
DX: I10 Essential (primary) hypertension (principal); E55.9 Vitamin D deficiency, unspecified
CPT/HCPCS: 36415; 80053; 80061; 81001; 82306; 84443; 85025

== ENCOUNTER 2025-04-02 09:08 | Outpatient (AMB) | payer OTHER, SELFPAY ==
[2025-04-02 09:16] VITALS: BP 130/90; PULSE 89; RESP 16; O2SAT 97; BMI 47.8
--- NOTE | 2025-04-02 09:16 | MHC.PC.OV ---
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 Accompanied by: Self / Same As Patient Allergies apixaban (From Eliquis) Allergy (Severe, Verified 04/02/25 09:18) Facial Swelling and rash Sulfa (Sulfonamide Antibiotics) Allergy (Unknown, Verified 04/02/25 09:18) cough sulfamethoxazole (From BACTRIM) Allergy (Unknown, Verified 04/02/25 09:18) COUGH trimethoprim (From BACTRIM) Allergy (Unknown, Verified 04/02/25 09:18) COUGH seasonal Allergy (Unknown, Uncoded 08/25/24 08:36) unknown Medication List - Last Reconciled 04/02/25 by KIN Ramirez- albuterol sulfate 90 mcg/actuation 2 puffs PO Q6H PRN albuterol sulfate 2.5 mg (3 mL) inhalation Q4H PRN albuterol sulfate 90 mcg/actuation (Ventolin HFA) 2 puffs inhalation Q6H PRN cefuroxime axetil 500 mg PO BID 5 days cholecalciferol (vitamin D3) 50 mcg PO DAILY fluticasone propion-salmeterol 250-50 mcg/dose (Advair Diskus) 1 inh inhalation BID furosemide (Lasix) 40 mg PO QAM loratadine (Claritin) 10 mg PO DAILY PRN metoprolol succinate ER 50 mg See Protocol PO DAILY nebulizers use nebulizer every 6 hours as needed rivaroxaban (Xarelto) 20 mg PO BEDTIME Tobacco use date assessed: 04/02/25 Fall risk assessment: No Falls in past year Last assessed Fall Risk: 04/02/25 Dental Screening Dental Screen Date: 04/02/25 Did you have a dental visit in the last 12 months?: Yes Did you have a dental problem in the last 6 months where you did not have access to dental care?: No Was dental information given to patient?: Patient has dentist HPI Annual PE HPI Details History of Present Illness The patient is a 64 year old female presenting for a physical exam. Her Cologuard test has . She has morbid obesity, is actively losing weight, and sees a director of curriculum and instruction on a regular basis for an unspecified condition. She has swelling in her left knee and has been evaluated by an orthopedist. The patient declined all vaccinations. She is also due for a mammogram and states she will contact the imaging facility. CBC showed a elevated hgb and hct, will repeat. micro hem noted, pt reported seeing urology in the past for this, it was fully worked up, they told me it was because i'm on a blood thinner Health Maintenance - Colon cancer screening: The patient's Cologuard test has . - Breast cancer screening: The patient is due for a mammogram and will contact the imaging facility. - Immunizations: The patient declined all vaccinations. - Weight management: The patient is actively losing weight. Social History - Exercise: The patient will receive a note to participate at the [facility] gym. Review of Systems - Constitutional: Denies fevers and chills. - Respiratory: Reports increased dyspnea. - Cardiovascular: Denies chest pain. - Musculoskeletal: Reports left knee swelling. - Genitourinary: Denies any current urinary issues. - Psychiatric: Denies suicidal or homicidal ideation. Physical Exam General: Cooperative, healthy appearing, comfortable, no acute distress and well developed, except for morbid obesity Orientation: Patient oriented x3 Limitations: No limitations Head: Normal to inspection Ears: Hearing grossly normal bilaterally Nose: Normal external nose present Face and sinus: Normal facial exam Eyes: Appearance normal, both eyes and all related structures Neck: Normal visual inspection and Yes full ROM Respiratory: Normal respiratory effort and able to speak in complete sentences. faint scattered wheezes, though moving air Cardiovascular: Regular rate and rhythm. Normal S1 and S2 GI: Normal to inspection. Soft to palpation and nontender Skin: No rashes or lesions noted Neuro: Patient oriented x3 Extremities: Swelling to the left knee noted Results - Labs: Recent labs were done. Plan 1. Encounter For General Adult Medical Examination The patient presented for a physical exam. She has been encouraged to complete her Cologuard test, and a new one will be sent. She states she will contact the imaging facility to schedule her mammogram. A note will be provided to allow her to participate in the gym at the [facility]. Follow-up is scheduled in six months. 2. Morbid (Severe) Obesity The patient is noted to be morbidly obese, though she is actively losing weight. Discussion Notes I addressed the patient's Cologuard and will send a new order. I encouraged her to complete this screening in the near future. We discussed her need for a mammogram, and she acknowledged she is due and will contact the facility. I noted her declining all vaccinations. I also agreed to provide her with a note to participate at the [facility] gym. I recommended a follow-up in six months. Patient Instructions - Complete your Cologuard test soon. - You are due for a mammogram. - Please contact the imaging facility to schedule your mammogram. - Continue with your weight loss efforts. - We will give you a note so you can exercise at the [facility] gym. - Please follow up in six months. [facility] Medical History Cellulitis of skin Right foot pain Colon cancer screening declined Morbid obesity Myofascial pain syndrome Hypertension COPD (chronic obstructive pulmonary disease) Surgical History No pertinent past surgical history Family History Father HTN (hypertension) Mother HTN (hypertension) Brother Substance use disorder Social History Household Members: Children Housing: House Do you presently have visiting nurse or other home services: No Alcohol intake: never Patient Tobacco Use Status: Former Tobacco user Years Smoked: 20 +/- e-Cigarette/Vaping Use: Never Used Second Hand Smoke Exposure: No service: No Current occupational status: employed Current occupation: [employer] Current occupational exposures/hazards: No Cognitive needs: No Hearing needs: No Vision needs: No Questionnaire PHQ-9 Over the last 2 weeks, how often have you been bothered by any of the following problems? 1. Little interest or pleasure in doing things: not at all 2. Feeling down, depressed, or hopeless: not at all 3. Trouble falling or staying asleep, or sleeping too much: not at all 4. Feeling tired or having little energy: not at all 5. Poor appetite or overeating: not at all 6. Feeling bad about yourself - or that you are a failure or have let yourself or your family down: not at all 7. Trouble concentrating on things, such as reading the newspaper or watching television: not at all 8. Moving or speaking so slowly that other people could have noticed. Or the opposite - being so fidgety or restless that you have been moving around a lot more than usual: not at all 9. Thoughts that you would be better off or of hurting yourself in some way: not at all Total score: 0 Depression Screening Interpretation: Negative Depression Screening Done: Yes 29803 - PHQ-9 Billing: Yes Source: Developed by Drs. Flo Eddy, Phyllis Bonilla, Gregorio Tan and colleagues, with an educational yana from [employer]. Thrive Questionnaire Date Thrive assessed: 06/07/24 I am a: Patient What is your living situation today?: I have a steady place to live Within the past 12 months, did the food you bought not last and you didn't have the money to get more?: Often true Within the past 12 months, did you worry whether your food would run out before you got money to buy more?: I choose not to answer this question Do you have trouble paying for medicines?: I choose not to answer this question Do you have trouble getting transportation to medical appointments?: I choose not to answer this question Do you have trouble paying your heating and electricity bill?: I choose not to answer this question Do you have trouble taking care of your child, family member or friend?: I choose not to answer this question Do you have trouble with day-to-day activities such as bathing, preparing meals, shopping, managing finances, etc.?: I choose not to answer this question Are you currently unemployed and looking for a job?: I choose not to answer this question Are you interested in more education?: I choose not to answer this question Please select the resources that you would like help with: None Currently or been in a relationship where the following occur: I choose not to answer THRIVE Score: 1 IRVIN-7 AMB Questionnaire IRVIN-7 Date IRVIN - 7 assessed: 06/07/24 Feeling afraid as if something awful might happen: 0 = Not at all Source: Developed by Drs. Flo Eddy, Phyllis Bonilla, Gregorio Tan and colleagues, with an educational yana from [employer]. Physical exam (Primary Care) Vital Signs: Last Vital Signs Pulse 89 04/02/25 09:16 Resp 16 04/02/25 09:16 BP 130/90 H 04/02/25 09:16 Pulse Ox 97 04/02/25 09:16 Oxygen Delivery Method Room Air 04/02/25 09:16 BMI result Body Mass Index 47.8 Tobacco/Smoking Status: Tobacco use Status Tobacco use date assessed 04/02/25 04/02/25 09:23 Patient Tobacco Use Status Former Tobacco user 04/02/25 09:17 e-Cigarette/Vaping Use Never Used 04/02/25 09:17 PHQ-9: PHQ-9 Score PHQ-9: Total score 0 04/02/25 09:59 Depression Screening Interpretation: Negative Thrive Assessment: Date of Thrive Assessment Date Thrive assessed 06/07/24 04/02/25 09:17 Currently or been in a relationship where the following occur: I choose not to answer Coding Level of Care Code Est Pt Level 3 (24856) Est Pt Prev Care 40-64y(01718) Diagnoses Encounter for routine adult physical exam with abnormal findings Z00.01 Elevated hematocrit R71.8 Additional Codes PHQ-9 - 36534 - PHQ-9 Billing: Yes ([id number]) Assessment & Plan Assessment & Plan (1) Encounter for routine adult physical exam with abnormal findings: Code(s): Z00.01 - Encounter for general adult medical examination with abnormal findings Category: Medical (2) Elevated hematocrit: Code(s): R71.8 - Other abnormality of red blood cells Category: Medical Plan . Orders: Orders Complete Blood Count Auto Diff Today R71.8 - Other abnormality of red blood cells Referrals Cologuard Test Z12.11 - Encounter for screening for malignant neoplasm of colon, Z12.12 - Encounter for screening for malignant neoplasm of rectum Medications: New fluticasone propion-salmeterol 250-50 mcg/dose (Advair Diskus) 1 inh inhalation BID 60 ea 0RF albuterol sulfate 90 mcg/actuation (Ventolin HFA) 2 puffs inhalation Q6H PRN 8.5 grams 0RF shortness of breath or wheezing Discontinued albuterol sulfate 90 mcg/actuation Discontinued Reason: Duplicate 2 puffs PO Q6H PRN 8.5 ea 6RF for dyspnea cefuroxime axetil Discontinued Reason: No Longer Medically Relevant 500 mg PO BID 5 days 10 tabs 0RF L03.90 - Cellulitis, unspecified
[2025-04-02 10:16] VITALS: BP 134/86
== END 2025-04-02 11:37 | disposition home or self-care (01) ==
LOC: HO.HMCC 09:09
PROVIDERS: PCP Nurse Practitioner Family; Visit Provider Nurse Practitioner Family
DX: Z00.01 Encounter for general adult medical examination with abnormal findings (principal); R71.8 Other abnormality of red blood cells

== ENCOUNTER → 2025-04-02 09:08 | Outpatient (BNVA) | payer OTHER, SELFPAY | PROVIDERS: PCP Nurse Practitioner Family; Visit Provider Nurse Practitioner Family | DX: Z13.31 Encounter for screening for depression (principal) | CPT/HCPCS: 96127 ==